=== PATIENT | female | born 1945 | race Caucasian/White ===

== ENCOUNTER 2024-06-03 11:39 | Inpatient (IN) | payer MEDICARE, OTHER, SELFPAY ==
[2024-06-03] VITALS (11 sets, daily range): BP systolic 108–172; BP diastolic 59–76; BMI 27.7
[2024-06-03 10:07] LABS: Glucose - Point of Care 170 mg/dl (70-99)
--- NOTE | 2024-06-03 10:15 | EDRN ---
Late entry documented on behalf of primary RN, Rosalia Hancock, after verbal discussion.
--- NOTE | 2024-06-03 10:28 | ED.GENMED ---
History of Present Illness
General
Chief Complaint: Weakness
Source: patient
Exam Limitations: none
Time Seen by Provider: 06/03/24 10:05
Nursing documentation reviewed up to this point in time: agreed with
History of Present Illness
History of Present Illness:
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
out, witnessed by live-in aide, around 9 AM this morning. Per family at bedside, denies recent illness or recent change in medications or diet. Denies previous history of similar symptoms. At baseline, patient is unable to ambulate, but is able
to move right leg and is able to feed herself with her right arm. Speech has been affected due to stroke, but is able to verbalize patient's family names. Upon arrival, patient is arousable, and appears to be answering simple questions to her son
at bedside.
Past History
Past History
ED Past Medical History: Arrthythmia (atrial fib), CVA (Left sided weakness, Aphasia), HTN, Hypercholesterolemia, NIDDM, Hypothyroidism, Psychiatric (Anxiety, Depression) and Other (Headaches, fainting episodes, UTI, DVT. G-Tube, right upper
extremity embolism requiring urgent embolectomy 02/21.)
ED Past Surgical History: Gynecological (pelvic repair) and Other (craniotomy )
Social History
Tobacco: Non-smoker
Alcohol: None
Personal:
Living: care home (for rehab)
Review of Systems
Review of Systems
Allergies reviewed?: Yes
Unable to obtain full review of systems at this time due to: due to acuity
All Other Systems: Not applicable
Phy Exam
Physical Exam
Physical Exam:
Physical Exam
General: mild distress. afebrile
Head: nc/at.
Neck: supple.
Heart: s1/s2 regular rate and rhythm, no murmur. equal radial pulses.
Lungs: no acute respiratory distress. clear bilaterally
Abdomen: normal bowel sounds. not tender.
Neuro: intermittently opens eyes and noted to move RUE and RLE spontaneously.
Skin: no rash
Extremities: no edema.
Course
Orders/Labs/Results
Orders:
Orders
06/03/24 Lunch
Tube Feeding
Tube Feeding Product: Tube Feeding Per RD
Flush Continuous pump feedings with water (mL/hr): 50
06/03/24 10:20
CT HEAD STROKE ALERT W/o Cont Urgent
Comment:
Reason For Exam: mental status change with speech impairment
06/03/24 10:21
Electrocardiogram (*1) Urgent
Reason for Study: TIA/Stroke
EKG- Treatment ONCE
06/03/24 10:26
EEG Routine Urgent
Reason for Exam: minimally responsive, hx large CVA
06/03/24 10:34
Levetiracetam Injectable [Keppra] 1,000 mg IV NOW STA
06/03/24 10:36
Levetiracetam Injectable [Keppra] 1,500 mg IV NOW STA
06/03/24 10:50
NEUROLOGY CONSULT Routine
Consulting Provider: Kaveh Jenkins
Was physician already notified: Yes
06/03/24 10:53
C-Reactive Protein Urgent
Complete Blood Count/With Diff Urgent
Comprehensive Metabolic Panel Urgent
Magnesium Urgent
06/03/24 11:27
Admit/Transfer Patient As Directed
Co-Sign Provider:
Level of Care: Inpatient admission
Assign to:: Telemetry
Physician / Group: Abby/hospitalist
Diagnosis: AMS
Reason for Telemetry: Arrhythmia
Date to Stop Telemetry: 06/06/24
Time to Stop Telemetry: 11:00
Reason for Hospitalization: AMS
Expected length of stay greater than two midnights?: Yes
ELOS- Estimated Length of Stay in days: 5
I certify the patient meets the requirements for IP care: Yes
MR Brain Without Contrast Routine
Comment:
Reason For Exam: decreased consciousness
Recent pill cam endoscopy?: No
PRN Pain Medication Management As Directed
May give lesser potent ordered pain med per pt: Yes
preference::
Protocol:: Medication orders for pain may be administered in a
manner that supports deferring to patient preference
when the pt is:
- Requesting an ordered lesser potent pain medication.
Least to most potent pain medications are defined
as: acetaminophen < NSAID < tramadol < opioids
(morphine, oxycodone, hydromorphone).
- Requesting a lesser dose of the same medication IF
ORDERED.
- Requesting a less intrusive route of administration
if both routes are prescribed by the provider (PO <
IV).
06/03/24 11:29
Code Status As Directed
Resuscitation Status: Full Code
06/03/24 12:24
Urinalysis Reflex To Culture Urgent
Date Specimen was Collected: 06/03/24
Time Specimen was Collected: 12:23
Urine Drug Abuse Screen Routine
Date Specimen was Collected: 06/03/24
Time Specimen was Collected: 12:23
06/03/24 13:40
Bisacodyl [Dulcolax] 10 mg RECTAL [id number] PRN
Dextrose 50%-Water [Dextrose 50% Syringe] 12.5 grams IV [id number] PRN
Docusate W/Senna [Senokot-S] 1 tablet PO BIDPRN PRN
Glucagon [GlucaGen] 1 mg IM PRN PRN
Insulin Aspart Corrective Mod [Novolog Flexpen-Moderate Resistance] See Protocol SC AC
Polyethylene Glycol Powder [Miralax] 17 grams PO DAILYPRN PRN
06/03/24 13:40
WOUND/OSTOMY CONSULT Routine
Reason for Consult: R leg, sacral wound
Activity As Directed
Activity Level: As Tolerated
Bedside Glucose Monitoring As Directed
Frequency: AC&HS
Additional Instructions:: Change to q6h if pt on TPN, tube feeding or not eating
Vital Signs As Directed
Frequency: Per unit guidelines
06/03/24 14:00
CefTRIAXone [Rocephin] 1,000 mg IV Q24H
06/03/24 Dinner
NPO
Allow oral meds: No
Allow clear liquids: Sips of Clears
06/03/24 20:00
Amantadine [Symmetrel Syrup] 150 mg TUBE BID
Apixaban [Eliquis] 5 mg TUBE Q12
Doxycycline [Vibramycin] 100 mg TUBE BID
Sotalol [Betapace] 80 mg TUBE BID
06/03/24 22:00
Acetaminophen [Tylenol] 650 mg TUBE HS
Atorvastatin [Lipitor] 80 mg TUBE HS
06/04/24 06:00
Basic Metabolic Panel IN AM
Complete Blood Count/With Diff IN AM
Glycohemoglobin (HgbA1c) IN AM
Magnesium IN AM
Levothyroxine [Synthroid] 100 mcg TUBE DAILY@0600
06/04/24 08:00
Lansoprazole [Prevacid] 15 mg TUBE DAILY
Losartan [Cozaar] 25 mg TUBE DAILY
06/04/24 12:00
Digoxin [Lanoxin] 125 mcg TUBE NOON
06/05/24 06:00
Basic Metabolic Panel IN AM
Complete Blood Count/With Diff IN AM
06/06/24 06:00
Basic Metabolic Panel IN AM
Complete Blood Count/With Diff IN AM
06/06/24 11:00
DC Protocol for Telemetry ONCE
06/07/24 06:00
Basic Metabolic Panel IN AM
Complete Blood Count/With Diff IN AM
Abnormal Lab Results
06/03/24 06/03/24
10:05 10:53
RBC 4.07 L 10^6/uL
(4.20-5.40)
Hct 36.1 L %
(37.0-47.0)
RDW 14.9 H %
(11.5-14.5)
Abs Immat Gran (auto) 0.1 H 10^3/uL
(0-0.05)
Immature Gran % 0.7 H %
(0-0.5)
Sodium 134 L mmol/L
(135-145)
Chloride 96 L mmol/L
(98-107)
BUN 31 H mg/dl
(7-17)
Creatinine 0.5 L mg/dL
(0.6-1.0)
Glucose 158 H mg/dl
(70-99)
Magnesium 1.3 L mg/dl
(1.6-2.3)
AST 42 H U/L
(14-36)
ALT 42 H U/L
(0-35)
Alkaline Phosphatase 141 H U/L
(38-126)
C-Reactive Protein 18.80 H mg/L
(0.0-10.00)
Albumin 3.3 L g/dl
(3.5-5.0)
POC Glucose 170 H mg/dl
(70-99)
06/03/24 10:53
06/03/24 10:53
Vital Signs
Initial and Last Documented VS:
Initial Vital Signs
BP
157/69
06/03/24 10:02
Last Documented Vital Signs
Temp Pulse Resp BP Pulse Ox
92.0 F L 47 18 144/67 92
06/03/24 13:55 06/03/24 13:55 06/03/24 13:55 06/03/24 13:55 06/03/24 14:31
MDM/Problems Addressed
MDM/Problems Addressed:
Stroke alert activated upon initial evaluation.
CT head: increased encephalomalacia noted, without any evidence of bleeding.
Patient evaluated at bedside by Dr. Jenkins, neurology. Recommends starting patient on Keppra, with initial load of 1500 mg.
Patient will be admitted for further evaluation and treatment.
Eliquis taken this morning, which will be continued.
Critical care statement: A total of 40 minutes of critical care time was provided for this patient. This includes management of unstable vital signs, evaluation of the patient at bedside, reviewing the patient's pertinent medical records, discussion
with consultants, review of old EKGs and review of pertinent medical records. This time with separate from time utilized to perform the aforementioned documented procedures
*EKG
Interpreted by ED Provider?: Yes
EKG Intrepretation Date: 06/03/24
Heart Rate: 56
Rate: bradycardiac
Rhythm: sinus
[place]: normal axis
Interval: normal interval
*Critical Care Note
Total Time (30-74mins, 75-104mins- exclusive of procedures): Not Applicable
ED Attending Note
-
Portions of this chart may have been created with voice recognition software.� Occasional wrong word or��sound alike� substitutions may have occurred due to the inherent limitations of voice recognition software.
Discharge Plan
Departure
Patient Disposition: Admit
Date of Disposition: 06/03/24
Time of Disposition: 10:43
Presentation/result/management discussed w/ accepting MD/DO: Hospitalist
Discharge Problem:
Seizure, Altered mental status
Interventions
Interventions:
*Risk Screen - Suicide Last Done: 06/03/24 10:04
*General Assessment Last Done: 06/03/24 10:04
*Neglect/Abuse Screening Last Done: 06/03/24 10:04
ED- Fall Risk Assessment Last Done: 06/03/24 13:17
*ED COVID-19 Vaccine History Last Done: 06/03/24 10:04
*Nursing Disposition Last Done: 06/03/24 13:17
ED- Cardiac Assessment Last Done: 06/03/24 10:00
ED- Neurological Assessment Last Done: 06/03/24 10:00
ED- Pulmonary Assessment Last Done: 06/03/24 10:00
--- NOTE | 2024-06-03 10:29 | CON.NEURO4 ---
Documented by User: Jocelyn Finley NP 06/03/24 13:36
Consultation - Neurology 4
-
CONSULTING PHYSICIAN: Kaveh Jenkins MD
REFERRING PHYSICIAN: ER/Dr. Shaw
DICTATED BY: OBDULIO Hill
DATE/TIME OF REQUEST: 06/03/24
DATE/TIME OF CONSULTATION: 06/03/24
Reason for Consultation: Stroke Alert
History of Present Illness:
This is a 79-year-old female with an extensive neurological history consisting of a R ICA occlusion in 12/2022 resulting in a large R MCA ischemic stroke s/p IV tPA and IAT complicated by RUE embolus s/p urgent embolectomy. She then was transferred
to [place] due to cerebral edema and underwent R chad craniectomy by Dr. Galeana. Patient's son notes that she had another stroke while at [place] but I cannot find further information about this. She underwent uncomplicated flap replacement in
January 2024. Her family at bedside report that at baseline she has residual left hemiparesis, has a PEG tube for adequate nutrition but is able to swallow some soft things, she is minimally verbal but can say some names/interact somewhat, she is able
to use her RLE and RUE somewhat but requires 24 hour nursing care. She has been on Eliquis 5mg BID since her stroke in 2022 and has not missed any doses. Her family denies any previous concern of seizures.
This morning (06/03/24), patient's family notes that her back shoe worker was with her and she was in her usual state, when around 0900 she had sudden onset of being 'unresponsive,' foaming at the mouth, tongue was protruding and was blue in color, and she
was making guttural noises. On EMS arrival, patient seemed to relax from that state but has continued to be minimally responsive, prompting a stroke alert to be activated. CT head was obtained on arrival and is negative for any acute findings.
Patient is not a candidate for TNK/IAT due to Eliquis dosage this morning, MRS score 5, and symptoms more supportive of seizure. She is nonverbal/not following commands at present. Will open her eyes to loud voice but closes them after stimulation.
Her family reports that last week she was diagnosed with herpes zoster on her R thigh and has been receiving Valtrex. She is also taking Doxycycline for a sacral pressure ulcer.
Past Medical History: R ICA occlusion resulting in large R MCA ischemic stroke 01/29/2023 s/p hemicraniectomy, RUE embolism, Afib (Eliquis), HTN, HLD, NIDDM, hypothyroidism, osteoporosis, anxiety, depression, DVT
Surgical History: R ICA thrombectomy, R arm embolectomy, R hemicraniectomy s/p flap replacement, PEG tube, pelvic repair, appendicitis surgery with mesh
Family History: Reviewed and noncontributory.
Social History: Denies tobacco, alcohol, and illicit drug use.
Allergies: No known allergies.
Home Medications: See below.
Review of Symptoms:
Per the HPI. I am unable to obtain a complete review of systems�because of patient's inability to provide history.
Physical Exam:
The patient is afebrile, abdomen is nondistended, breathing is unlabored, skin is warm and dry, trace BLE edema.
NIH Stroke Scale:
I performed the NIH stroke scale on the patient on 06/03/24 at 1000. The patient scored 22 points on the NIH stroke scale assessment, which were assigned as follows:
Neurologic Examination:
The patient is lethargic, opens eyes briefly to loud voice. She does not follow any commands. No verbal response.. On cranial nerve assessment, pupils are 3 mm bilateral, round and reactive to light and accommodation. LAMAR visual dawson or EOMS, no
apparent gaze deviation. There is no facial asymmetry. LAMAR tongue/uvula. Motor strengths are 0/5 left upper and lower extremities, 1/5 RUE and RLE on medical research Grayling scale. LAMAR drift. No involuntary movement noted. Deep tendon reflexes are
1+ bilateral upper and lower extremities. Babinski is positive on the left. LAMAR sensation, double simultaneous, and coordination.
Lab Results: See below.
Neuro Imaging:
1. CT Head 06/03/24: No acute intracranial hemorrhage. Postoperative changes of right-sided cranioplasty with encephalomalacia throughout the right cerebral hemisphere with associated ex vacuo dilation of the right lateral ventricle, similar to
prior. There is encephalomalacia involving the anterior right frontal lobe which is similar to prior. However there is increased encephalomalacia involving the left paramedian frontal and parietal lobes, likely either evolving postoperative change
or prior infarct. MRI may be considered for further evaluation if there is concern for acute ischemia.
Differentials for the patient's presentation include:
1. Seizure/postictal state likely producing change in mental status. Given significant size of old stroke, this greatly increases the patient's risk for seizures.
2. Low concern for new ischemic stroke but cannot entirely exclude this.
3. CT head negative for hemorrhage.
4. Herpes zoster.
Patient has the following risk factors for their symptoms: Large old infarct, herpes zoster
IV Tenecteplase/IAT candidacy: Patient is not a candidate for TNK/IAT due to Eliquis dosage this morning, MRS score 5, and symptoms more supportive of seizure.
Recommendations:
-Provide Keppra 1000mg IV x1 now. Recommend continuing Keppra 1000mg IV q12hrs.
-Patient's son reluctant to add Keppra to medications, requested we notify Dr. Galeana at [place] of current situation. Notified Dr. Galeana's office, he confirms that it is completely okay for her to be on Keppra.
-Urgent EEG pending.
-Okay to continue home Eliquis 5mg BID.
-Goal normotension.
-MRI brain noncontrast per Hospitalists team.
-Infection/metabolic workup per primary team.
-NIHSS and neurological checks per unit guidelines.
-Provide patient's family with a stroke education packet.
-DVT prophylaxis with anticoagulation.
Discussed patient care with: Dr. Jenkins, Dr. Shaw, Dr. Mora, patient's family
Vital Signs and Labs
-
Vital Signs and Labs:
Vital Signs
Pulse Resp BP Pulse Ox
52 18 135/74 96
06/03/24 13:00 06/03/24 13:00 06/03/24 13:00 06/03/24 13:00
Lab Results
06/03/24 10:53
06/03/24 10:53
Sodium 134 mmol/L (135-145) L 06/03/24 10:53
Potassium 4.8 mmol/L (3.5-5.1) 06/03/24 10:53
BUN 31 mg/dl (7-17) H 06/03/24 10:53
Glucose 158 mg/dl (70-99) H 06/03/24 10:53
Calcium 9.9 mg/dl (8.4-10.2) 06/03/24 10:53
Ur Buprenorphine Negative (Negative) 06/03/24 12:24
Medications
-
Active Medications
Generic Name Dose Route Start Last Admin
Trade Name Freq PRN Reason Stop Dose Admin
Magnesium Sulfate 4 gram in 100 mls @ 25 mls/hr 06/03/24 13:06
Magnesium Sulfate IV 06/03/24 17:05
NOW STA
Home Medications
�Medication �Instructions �Recorded
amantadine HCl 50 mg/5 mL oral 150 mg (15 mL) feeding tube BID 06/25/23
solution #1,800 mL
apixaban 5 mg tablet (Eliquis) 5 mg feeding tube Q12 #60 tabs 06/25/23
digoxin 125 mcg (0.125 mg) tablet 125 mcg feeding tube DAILY #30 tabs 06/25/23
levothyroxine 100 mcg tablet 100 mcg feeding tube DAILY@0600 06/25/23
#30 tabs
acetaminophen 325 mg tablet 650 mg feeding tube HS 06/03/24
atorvastatin 80 mg tablet 80 mg feeding tube HS 06/03/24
doxycycline hyclate 100 mg capsule 100 mg feeding tube BID 06/03/24
lansoprazole 15 mg capsule,delayed 15 mg feeding tube DAILY 06/03/24
release
losartan 25 mg tablet 25 mg feeding tube DAILY 06/03/24
metformin 500 mg tablet 500 mg feeding tube DAILY 06/03/24
mupirocin 2 % topical ointment 1 applic topical DAILY bed sore 06/03/24
sotalol 80 mg tablet 80 mg feeding tube BID 06/03/24
therapeutic multivitamin 1 tab feeding tube DAILY 06/03/24
urea 15 gram oral powder packet 1 packet PO Q48H 06/03/24
(Ure-Na)
NIH Stroke Score
Subsequent NIH Scale
Date of Subsequent NIH Scale: 06/03/24
Time of Subsequent NIH Scale: 10:00
NIH Stroke Score
Level of Consciousness: 1 - Arousable
LOC Questions: 2-Neither correct
LOC Commands: 2-Performs neither correctly
Best Horizontal Gaze: 0-Normal
Visual Dawson: 0=Normal, no visual loss
Facial Palsy: 0=Normal, symmetrical
Motor - Right Arm: 3=None vs. gravity
Motor - Left Arm: 4=No movement
Motor - Right Le-None vs. gravity
Motor - Left Le-No movement
Limb Ataxia: 0-Absent
Sensation: 0-Normal
Best Language: 3-Mute/global aphasia
Dysarthria: 0-Normal
Extinction and Inattention: 0-No abnormality
Total Score:: 22
Modified [place] (mRS) Score
Modified Aster Scale (mRS): Severe disability. Requires constant nursing care.
Score: 5
Alteplase Contraindication
Inclusion and Exclusion criteria reviewed: Yes
Reasons for NON-Tx with Thrombolytics ABSOLUTE Exclusions: Patient taking oral anticoagulant and last dose within 48 hours
IAT Contraindications: Baseline mRS greater than or equal to 3 by history

Documented by User: Kaveh Jenkins MD 06/03/24 15:18
Consultation - Neurology 4
-
CONSULTING PHYSICIAN: Kaveh Jenkins MD
REFERRING PHYSICIAN: ER/Dr. Shaw
DICTATED BY: OBDULIO Hill
DATE/TIME OF REQUEST: 06/03/24
DATE/TIME OF CONSULTATION: 06/03/24
Reason for Consultation: Altered mental status
History of Present Illness:
This is a 79-year-old female with an extensive neurological history consisting of a R ICA occlusion in 12/2022 resulting in a large R MCA ischemic stroke s/p IV tPA and IAT complicated by RUE embolus s/p urgent embolectomy. She then was transferred
to [place] due to cerebral edema and underwent R chad craniectomy by Dr. Galeana. Patient's son notes that she had another stroke while at [place] but I cannot find further information about this. She underwent uncomplicated flap replacement in
January 2024. Her family at bedside report that at baseline she has residual left hemiparesis, has a PEG tube for adequate nutrition but is able to swallow some soft things, she is minimally verbal but can say some names/interact somewhat, she is able
to use her RLE and RUE somewhat but requires 24 hour nursing care. She has been on Eliquis 5mg BID since her stroke in 2022 and has not missed any doses. Her family denies any previous concern of seizures.
This morning (06/03/24), patient's family notes that her back shoe worker was with her and she was in her usual state, when around 0900 she had sudden onset of being 'unresponsive,' foaming at the mouth, tongue was protruding and was blue in color, and she
was making guttural noises. On EMS arrival, patient seemed to relax from that state but has continued to be minimally responsive, prompting a stroke alert to be activated. CT head was obtained on arrival and is negative for any acute findings.
Patient is not a candidate for TNK/IAT due to Eliquis dosage this morning, MRS score 5, and symptoms more supportive of seizure. She is nonverbal/not following commands at present. Will open her eyes to loud voice but closes them after stimulation.
Her family reports that last week she was diagnosed with herpes zoster on her R thigh and has been receiving Valtrex. She is also taking Doxycycline for a sacral pressure ulcer.
Past Medical History: R ICA occlusion resulting in large R MCA ischemic stroke 01/29/2023 s/p hemicraniectomy, RUE embolism, Afib (Eliquis), HTN, HLD, NIDDM, hypothyroidism, osteoporosis, anxiety, depression, DVT
Surgical History: R ICA thrombectomy, R arm embolectomy, R hemicraniectomy s/p flap replacement, PEG tube, pelvic repair, appendicitis surgery with mesh
Family History: Reviewed and noncontributory.
Social History: Denies tobacco, alcohol, and illicit drug use.
Allergies: No known allergies.
Home Medications: See below.
Review of Symptoms:
Per the HPI. I am unable to obtain a complete review of systems�because of patient's inability to provide history.
Physical Exam:
The patient is afebrile, abdomen is nondistended, breathing is unlabored, skin is warm and dry, trace BLE edema.
NIH Stroke Scale:
I performed the NIH stroke scale on the patient on 06/03/24 at 1000. The patient scored 22 points on the NIH stroke scale assessment, which were assigned as follows:
Neurologic Examination:
The patient is lethargic, opens eyes briefly to loud voice. She does not follow any commands. No verbal response.. On cranial nerve assessment, pupils are 3 mm bilateral, round and reactive to light and accommodation. LAMAR visual dawson or EOMS, no
apparent gaze deviation. There is no facial asymmetry. LAMAR tongue/uvula. Motor strengths are 0/5 left upper and lower extremities, 1/5 RUE and RLE on medical research Grayling scale. LAMAR drift. No involuntary movement noted. Deep tendon reflexes are
1+ bilateral upper and lower extremities. Babinski is positive on the left. LAMAR sensation, double simultaneous, and coordination.
Lab Results: See below.
Neuro Imaging:
1. CT Head 06/03/24: No acute intracranial hemorrhage. Postoperative changes of right-sided cranioplasty with encephalomalacia throughout the right cerebral hemisphere with associated ex vacuo dilation of the right lateral ventricle, similar to
prior. There is encephalomalacia involving the anterior right frontal lobe which is similar to prior. However there is increased encephalomalacia involving the left paramedian frontal and parietal lobes, likely either evolving postoperative change
or prior infarct. MRI may be considered for further evaluation if there is concern for acute ischemia.
Differentials for the patient's presentation include:
1. Seizure/postictal state likely producing change in mental status. Given significant size of old stroke, this greatly increases the patient's risk for seizures.
2. Low concern for new ischemic stroke but cannot entirely exclude this.
3. CT head negative for hemorrhage.
4. Herpes zoster.
Patient has the following risk factors for their symptoms: Large old infarct, herpes zoster
IV Tenecteplase/IAT candidacy: Patient is not a candidate for TNK/IAT due to Eliquis dosage this morning, MRS score 5, and symptoms more supportive of seizure.
Recommendations:
-Provide Keppra 1000mg IV x1 now. Recommend continuing Keppra 1000mg IV q12hrs.
-Patient's son reluctant to add Keppra to medications, requested we notify Dr. Galeana at [place] of current situation. Notified Dr. Galeana's office, he confirms that it is completely okay for her to be on Keppra.
-Urgent EEG pending.
-Okay to continue home Eliquis 5mg BID.
-Goal normotension.
-MRI brain noncontrast per Hospitalists team.
-Infection/metabolic workup per primary team.
-NIHSS and neurological checks per unit guidelines.
-Provide patient's family with a stroke education packet.
-DVT prophylaxis with anticoagulation.
Discussed patient care with: Dr. Jenkins, Dr. Shaw, Dr. Mora, patient's family
Neurology attending note
CC: Altered mental status
HPI: 79-year-old female with RIGHT ICA occlusion(12/2022) resulting in a large R MCA ischemic stroke s/p IV tPA and IAT complicated by RUE embolus s/p urgent embolectomy. She then underwent R chad craniectomy at [facility] for malignant
cerebral edema by Dr. Galeana. She suffered another another stroke at [place]. She underwent uncomplicated flap replacement in January 2024. Her family at bedside report that at baseline she has residual left hemiparesis, with a PEG tube for
adequate nutrition but is able to swallow mashed food. she is minimally verbal and say names of her family , she is able to use her RLE and RUE somewhat but requires 24 hour nursing care. She has been on Eliquis 5mg BID since her stroke in 2022 and
has not missed any doses. Her family denies any previous concern of seizures.
This morning (06/03/24), patient's family notes that her back shoe worker was with her and she was in her usual state, when around 0900 she became unresponsive, foaming at the mouth, tongue was protruding turning blue, and was making guttural noises.
On examination: Afebrile P52 RR18 BP135/74 Pulse Ox96
She is postictal arousable oriented to none. Aphasic. Cranial nerve exam: Right gaze preference. Left facial weakness. Left-sided weakness of upper and lower extremities. Left Babinski. Bedbound
Assessment and plan: New onset seizure secondary to right MCA infarction. New onset herpes zoster
Plan: Keppra 1000 mg IV bolus. Keppra 500 mg IV every 12 hourly maintenance
EEG
Eliquis 5 mg twice daily
Serial neuro exams and seizure precautions
Patient to be admitted for observation overnight
NIH Stroke Score
NIH Stroke Score
Total Score:: 22
Modified Aster (mRS) Score
Score: 5
[2024-06-03] MEDS: KEPPRA 1500 MG IV (10:46)
--- NOTE | 2024-06-03 10:49 | HPS.HSE ---
Family Physician
-
Family Physician: NOT KNOW UNKNOWN - PT DOES
Chief Complaint
-
decreased LOC
History of Present Illness
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
in January 2023, Paroxysmal atrial fibrillation on anticoagulation with Eliquis, Essential hypertension, Insulin- dependent diabetes, Hypothyroidism on replacement; p/w sudden onset of 'unresponsiveness' with foaming at mouth and tongue hanging out,
witnessed by live-in aide. Symptoms started in the morning.
Medical History
Past Medical History
Past Medical History: Reports Arrhythmia and Other
Additional Past Medical History:
Past medical history and archive reviewed and obtained from the son and the chart.
History of A-fib anticoagulated with Eliquis
Hemorrhagic stroke status post craniotomy in January of this year and right side of skull left open
Ambulatory dysfunction
Status post PEG tube feeding
History of the right upper extremity DVT requiring thrombectomy
Chronic aphasia and left-sided weakness
Dyslipidemia
Insulin-dependent diabetes mellitus
Hypothyroidism
Anxiety and mood disorder
Past Surgical History: Reports Other
Additional Past Surgical History:
Craniotomy 01/2023
R arm embolus embolectomy
Social History
Unable to obtain full social history at this time due to: Other
Tobacco: Non-smoker
Alcohol: None
Drug: None
Living: Alone (with 24 hour aide)
Family History
Family History: CAD, Hypertension and Other (stroke)
Allergies / Home Medications
Allergies reflects when Allergies were last updated in [facility] [employer].
Home Medications with original date entered in [employer]
Allergy/Medication List:
Allergies
Allergy/AdvReac Type Severity Reaction Status Date / Time
No Known Allergies Allergy Verified 06/14/23 19:31
Home Medications
amantadine HCl 50 mg/5 mL oral solution 150 mg (15 mL) feeding tube BID #1,800 mL 06/25/23
apixaban 5 mg tablet (Eliquis) 5 mg feeding tube Q12 #60 tabs 06/25/23
digoxin 125 mcg (0.125 mg) tablet 125 mcg feeding tube DAILY #30 tabs 06/25/23
levothyroxine 100 mcg tablet 100 mcg feeding tube DAILY@0600 #30 tabs 06/25/23
acetaminophen 325 mg tablet 650 mg feeding tube HS 06/03/24
atorvastatin 80 mg tablet 80 mg feeding tube HS 06/03/24
doxycycline hyclate 100 mg capsule 100 mg feeding tube BID 06/03/24
lansoprazole 15 mg capsule,delayed release 15 mg feeding tube DAILY 06/03/24
losartan 25 mg tablet 25 mg feeding tube DAILY 06/03/24
metformin 500 mg tablet 500 mg feeding tube DAILY 06/03/24
mupirocin 2 % topical ointment 1 applic topical DAILY bed sore 06/03/24
sotalol 80 mg tablet 80 mg feeding tube BID 06/03/24
therapeutic multivitamin 1 tab feeding tube DAILY 06/03/24
urea 15 gram oral powder packet (Ure-Na) 1 packet PO Q48H 06/03/24
Review of Systems
-
Neurological: Reports See HPI and Other (decreased LOC )
Physical Exam
Vital Signs
Vital Signs
Pulse Resp BP Pulse Ox
66 18 157/69 95
06/03/24 10:04 06/03/24 10:04 06/03/24 10:04 06/03/24 10:04
Physical Exam
General: Well Developed, Well Nourished and Appears Chronically Ill; No Conversant
HEENT: NormoCephalic, Moist mucous membranes and Atraumatic
Respiratory: Clear and Non Labored Respirations; No Accessory Resp Muscle Use
Cardiac: S1/S2 and Regular Rhythm; No Murmur or Rub
GI: Soft, Non Tender, Non Distended, Normal Bowel Sounds and Peg Tube
Rectal: Deferred by Provider
Musculoskeletal: No Clubbing, No Cyanosis and No Edema
Skin: No Rash
Neuro: Other (lethargic )
Psych: Calm
Data Reviewed
-
CT Scan: Report Reviewed by me
Lab Data: Labs Reviewed by me
Impression/Plan
-
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
in January 2023, Paroxysmal atrial fibrillation on anticoagulation with Eliquis, Essential hypertension, Insulin- dependent diabetes, Hypothyroidism on replacement; p/w sudden onset of 'unresponsiveness' with foaming at mouth and tongue hanging out,
witnessed by live-in aide. Symptoms started in the morning.
Per family at bedside, pt at baseline is minimally verbal and can interact with people. Probably not orientated due to previous stroke.
Family also informed that pt was recently diagnosed with R leg shingles and completed antiviral.
In the ED, pt is arousable with sternal rub. She cannot provide history.
A/P:
# Acute metabolic encephalopathy, unclear cause currently
CT head No acute intracranial hemorrhage.
[place] due to postictal state per neurology
Status post Keppra per neuro, defer Keppra to Neuro
Check EEG
Check MRI brain
Also check UA/urine culture, CRP for infectious etiology as differential diagnosis
Cover with empiric antibiotic ceftriaxone for now
Cont TF with water flushes
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
# status post lytic treatment followed by craniotomy in January 2023 for stroke
Monitor mental status,
At baseline, pt is minimally verbal and can interact with people.
# Paroxysmal atrial fibrillation
cont SALES AND CUSTOMER RELATIONS REP Eliquis through PEG
Cont SALES AND CUSTOMER RELATIONS REP Digoxin and sotalol through PEG
# Right upper extremity embolism requiring embolectomy in January 2023
cont SALES AND CUSTOMER RELATIONS REP Eliquis through PEG
# Essential hypertension
cont SALES AND CUSTOMER RELATIONS REP Losartan through PEG
# NIDDM
Hold SALES AND CUSTOMER RELATIONS REP metformin
cover with ISS
# Hypothyroidism on replacement
# Sacral decub ulcer POA
wound care CS
cont SALES AND CUSTOMER RELATIONS REP Doxycycline
# Recent R leg shingles
completed antiviral per family
wound care CS
DVT ppx: SALES AND CUSTOMER RELATIONS REP Eliquis
FC, confirmed with son
[2024-06-03 11:06] LABS: % Basophils 0.4 % (0-2); % Eosinophils 1.6 % (0-6); % Immature Granulocytes 0.7 % (0-0.5); % Lymphocytes 26.5 % (20.5-51.1); % Monocytes 6.7 % (1.7-9.3); % Neutrophils 64.1 % (42.2-75.2); Absolute Eosinophils 0.1 10^3/uL (0-0.7); Absolute Immature Granulocytes 0.1 10^3/uL (0-0.05); Absolute Lymphocytes 2.3 10^3/uL (1.2-3.4); Absolute Monocytes 0.6 10^3/uL (0.1-0.6); Absolute Neutrophils 5.5 10^3/uL (1.4-6.5); Hematocrit 36.1 % (37.0-47.0); Mean Corp Hgb Conc. 33.2 g/dL (33.0-37.0); Mean Corpuscular Hgb 29.5 pg (27.0-31.0); Mean Corpuscular Volume 88.7 fL (81.0-99.0); Mean Platelet Volume 10.2 fL (7.4-10.4); Nucleated Red Blood Cells % 0 %; Platelet Count 292 10^3/uL (130-400); Red Blood Cell Count 4.07 10^6/uL (4.20-5.40); Red Cell Dist. Width 14.9 % (11.5-14.5); White Blood Cell Count 8.5 10^3/uL (4.8-10.8)
[2024-06-03 11:21] LABS: ALT (SGPT) 42 U/L (0-35); AST (SGOT) 42 U/L (14-36); Albumin 3.3 g/dl (3.5-5.0); Alkaline Phosphatase 141 U/L (38-126); Blood Urea Nitrogen 31 mg/dl (7-17); Calcium 9.9 mg/dl (8.4-10.2); Carbon Dioxide 28 mmol/L (22-30); Chloride 96 mmol/L (98-107); Estimated Creatinine Clearance 79 ml/min; Glucose 158 mg/dl (70-99); Magnesium 1.3 mg/dl (1.6-2.3); Potassium 4.8 mmol/L (3.5-5.1); Sodium 134 mmol/L (135-145); Total Bilirubin 0.2 mg/dl (0.2-1.3); Total Protein 6.3 g/dl (6.3-8.2); eGFR > 60.00
[2024-06-03 12:38] LABS: Urine Albumin 1+ (Neg - Trace); Urine Bilirubin Negative (Negative); Urine Character Clear (Clear); Urine Color Yellow; Urine Glucose Negative (Negative); Urine Ketone Negative (Negative); Urine Leukocyte 2+ (Negative); Urine Nitrite Negative (Negative); Urine Occult Blood Negative (Negative); Urine Urobilinogen Negative (Neg - 1+)
[2024-06-03 12:48] LABS: Urine Red Blood Cell 0-2 /HPF (0-2); Urine White Cell 16-20 /HPF (0-5)
[2024-06-03 12:49] LABS: Urine Bacteria Moderate (Negative); Urine Hyaline Cast 0-2 /LPF (0-2)
[2024-06-03 12:52] LABS: Amphetamines Negative (Negative); Barbiturates Negative (Negative); Benzodiazepines Negative (Negative); Buprenorphine Negative (Negative); Cocaine Negative (Negative); Marijuana Negative (Negative); Methadone Negative (Negative); Methamphetamines Negative (Negative); Opiates Negative (Negative); Phencyclidine Negative (Negative); Tricyclic Antidepressants Negative (Negative)
--- NOTE | 2024-06-03 13:07 | EEG.RPT ---
Electroencephalogram Report
Recording
Date of EE06/03/24
Type of EEG: Routine
Length of EEG recordin mins
Done with Video Recording: Yes
Patient Status: Inpatient
Recording Conditions: Awake
Hyperventilation Performed: No
Photic Stimulation Performed: Yes
Report
METHODS
A 21 channel digitized electroencephalogram was performed at [facility]. The 10/20 international system of electrode placement was used. In addition to EEG, the patient was monitored for EKG. The duration of the recording was 28 minutes.
BACKGROUND
The background consisted of relative low amplitude activity with no clear posterior dominant rhythm over the entire right hemisphere and 5-6Hz slowing seen over the left hemisphere which was polymorphic and seen throughout the study.
PHOTIC STIMULATION
Photic stimulation using a step-butler increase in photic frequency varying from 1-31 Hertz resulted in no driving responses but no appearance of abnormal activity.
INTERPRETATION AND CLINICAL CORRELATION
The background consisted of relative low amplitude activity with no clear posterior dominant rhythm over the entire right hemisphere, consistent with the patient's history of stroke in his distribution, and theta to delta range slowing seen over the
left hemisphere, consistent with moderate left hemispheric cerebral dysfunction, nonspecific in etiology.
[2024-06-03 14:06] LABS: Glucose - Point of Care 125 mg/dl (70-99)
[2024-06-03 14:23] LABS: % Basophils 0.3 % (0-2); % Immature Granulocytes 0.6 % (0-0.5); % Lymphocytes 26.3 % (20.5-51.1); % Monocytes 5.8 % (1.7-9.3); Absolute Eosinophils 0.1 10^3/uL (0-0.7); Absolute Immature Granulocytes 0.1 10^3/uL (0-0.05); Absolute Lymphocytes 2.8 10^3/uL (1.2-3.4); Absolute Monocytes 0.6 10^3/uL (0.1-0.6); Hematocrit 34.9 % (37.0-47.0); Hemoglobin 11.6 g/dL (12.0-16.0); Mean Corp Hgb Conc. 33.2 g/dL (33.0-37.0); Mean Corpuscular Hgb 29.2 pg (27.0-31.0); Mean Corpuscular Volume 87.9 fL (81.0-99.0); Mean Platelet Volume 9.6 fL (7.4-10.4); Nucleated Red Blood Cells % 0 %; Platelet Count 276 10^3/uL (130-400); Red Blood Cell Count 3.97 10^6/uL (4.20-5.40); Red Cell Dist. Width 15.1 % (11.5-14.5); White Blood Cell Count 10.5 10^3/uL (4.8-10.8)
--- NOTE | 2024-06-03 14:23 | PTCARENOTE ---
pt transferred from ED to . nurse unable to obtain temp ax or oral. rectal temp 92.0. no temp taken in ED per chart. pt with significant neuro hx. pt with PEG site and tube feeds from home. pt bradycardic. rapid response called on pt. to
upgrade to IMU room 3354. pt with significant stage 4 wound. woundcare consulted.
[2024-06-03 14:30] LABS: INR 1.37; PT 16.9 Sec (11.4-14.6)
[2024-06-03 14:39] LABS: Blood Urea Nitrogen 29 mg/dl (7-17); Calcium 9.6 mg/dl (8.4-10.2); Carbon Dioxide 28 mmol/L (22-30); Chloride 97 mmol/L (98-107); Estimated Creatinine Clearance 79 ml/min; Glucose 130 mg/dl (70-99); Lactic Acid 1.6 mmol/L (0.7-2.0); Potassium 4.8 mmol/L (3.5-5.1); Sodium 134 mmol/L (135-145); eGFR > 60.00
[2024-06-03 14:52] LABS: Troponin I < 0.012 ng/ml
[2024-06-03 15:14] LABS: Creatine Phosphokinase 53 U/L (30-135); HDL Cholesterol 42 mg/dl; LDL Cholesterol, Calculated 35 mg/dl; Total Cholesterol 119 mg/dl (50-199); Triglyceride 211 mg/dl (10-149); Very Low Density Lipoprotein 42 mg/dl (0-30)
[2024-06-03] MEDS: ROCEPHIN 1000 MG IV (15:32)
[2024-06-03] MEDS: STERILE WATER FOR INJECTION 10 ML IV (15:32)
[2024-06-03 15:49] LABS: TSH Reflex To Free T4 7.62 uIU/ml (0.47-4.68)
[2024-06-03 15:52] LABS: Ferritin 68.5 ng/ml (11.1-264.0)
[2024-06-03] MEDS: MAGNESIUM SULFATE 100 IV (16:04)
[2024-06-03 16:17] LABS: Free T4 1.85 ng/dl (0.78-2.19)
[2024-06-03 16:24] LABS: Folate 8.8 ng/ml (2.76-20); Vitamin B12 > 1000 pg/ml (239-931)
--- NOTE | 2024-06-03 16:30 | WOUNDNOTE ---
[facility] RN note: Patient admitted with chronic sacral wound with osteomyelitis x 2 years
See H&P for complete history.
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
2022, Paroxysmal atrial fibrillation on anticoagulation with Eliquis, Essential hypertension, Insulin- dependent diabetes, Hypothyroidism on replacement; p/w sudden onset of 'unresponsiveness' with foaming at mouth and tongue hanging out, witnessed
by live-in aide. Symptoms started in the morning.
Wound Location and type/assessment: Patient admitted with 2 year old sacral wound with osteomyelitis. The wound, which was just changed this morning per family report, was completely saturated. No odor noted, pink wound bed with scant areas of stapletno
slough. 1 cm undermining around circumference of wound with macerated rolled edges. Family reports that current wound care has been ordered by home care agency. Patient has had consult for flap repair, but per son is not a candidate due to osteo and
other comorbidities. Family at bedside insisting on current wound care of cleaning with Dakins and and packing with silver alginate and covering with hydrocolloid dressing. This telegraphic typewriter operator explained to family that wound was saturated and edges were
macerated due to moisture. This telegraphic typewriter operator recommended packing with Dakins moistened packing BID as this will keep wound clean and help to absorb drainage. Family continued to refuse change in packing, but did agree that wound could be covered with
silicone border foam instead of a hydrocolloid and that no-sting barrier could be placed around wound. Heels intact. Patient has caregiving at home and an air mattress.
Appetite: NPO currently, has PEG tube feeds at home
Pressure redistribution devices in place: Centrella Max Air
Plan: Clean with Dakins, sure-prep around wound, pack with silver alginate and cover with sacral foam BID. Will continue to assess if this wound care is adequate to absorb drainage. Patient has several comorbidities including CVA, bedbound status,
diabetes and recent onset of unresponsiveness. Feedings are also currently on hold. Wounds may worsen and new wounds may develop even with optimal care. Will confirm orders with hospitalist and update nurse.
Updated care plan and will follow as needed.
Note to case management of equipment requested for discharge:
Recommend follow up at wound care center upon discharge.
--- NOTE | 2024-06-03 17:11 | PTCARENOTE ---
Received pt from 2N after RR. Pt non-verbal at baseline. Core temp 91.7 upon arrival with HR in 40's. Pt with multiple wounds, WOC consulted and saw pt. Lima hugger in place set at medium. Incontinence care completed as needed, purewick in place.
Family at bedside and updated frequently. CXR results still pending at this time. Family brought in home TF for when TF is resumed. Will continue to monitor through shift.
[2024-06-03 18:26] LABS: Glucose - Point of Care 140 mg/dl (70-99)
[2024-06-03] MEDS: ELIQUIS 5 MG TUBE (22:08)
[2024-06-03] MEDS: BETAPACE 80 MG TUBE (22:09)
[2024-06-03] MEDS: VIBRAMYCIN 100 MG TUBE (22:10)
[2024-06-03] MEDS: SYMMETREL SYRUP 150 MG TUBE (22:10)
--- NOTE | 2024-06-03 23:05 | PTCARENOTE ---
Pt received from previous RN. Mahesh trevino in use. goal temp 97F. pt currently 95.2. rectal probe in use and q1hr temp assessments maintained. Meds admin via peg tube. no acute changes at this time. VSS.
[2024-06-04] VITALS (12 sets, daily range): BP systolic 93–131; BP diastolic 50–68; BMI 26.8
[2024-06-04] MEDS: TYLENOL 650 MG TUBE ×2 (01:05→21:04)
[2024-06-04] MEDS: LIPITOR 80 MG TUBE ×2 (01:06→21:04)
[2024-06-04 01:29] LABS: Glucose - Point of Care 97 mg/dl (70-99)
[2024-06-04] MEDS: DAKIN'S SOLUTION 0.125% 1/4 STRENGTH 1 ML TOPICAL ×3 (04:49→21:05)
[2024-06-04] MEDS: SYNTHROID 100 MCG TUBE (04:53)
[2024-06-04 04:57] LABS: % Basophils 0.3 % (0-2); % Eosinophils 0.9 % (0-6); % Immature Granulocytes 0.4 % (0-0.5); % Monocytes 8.4 % (1.7-9.3); Absolute Eosinophils 0.1 10^3/uL (0-0.7); Absolute Lymphocytes 1.8 10^3/uL (1.2-3.4); Absolute Monocytes 0.8 10^3/uL (0.1-0.6); Absolute Neutrophils 6.9 10^3/uL (1.4-6.5); Hematocrit 33.8 % (37.0-47.0); Hemoglobin 11.4 g/dL (12.0-16.0); Mean Corp Hgb Conc. 33.7 g/dL (33.0-37.0); Mean Corpuscular Hgb 30.4 pg (27.0-31.0); Mean Corpuscular Volume 90.1 fL (81.0-99.0); Mean Platelet Volume 9.7 fL (7.4-10.4); Nucleated Red Blood Cells % 0.2 %; Platelet Count 262 10^3/uL (130-400); Red Blood Cell Count 3.75 10^6/uL (4.20-5.40); Red Cell Dist. Width 14.8 % (11.5-14.5); White Blood Cell Count 9.7 10^3/uL (4.8-10.8)
[2024-06-04 05:23] LABS: Blood Urea Nitrogen 24 mg/dl (7-17); Calcium 9.6 mg/dl (8.4-10.2); Carbon Dioxide 26 mmol/L (22-30); Chloride 98 mmol/L (98-107); Estimated Creatinine Clearance 79 ml/min; Glucose 110 mg/dl (70-99); Magnesium 2.2 mg/dl (1.6-2.3); Sodium 135 mmol/L (135-145); eGFR > 60.00
[2024-06-04 06:49] LABS: Glucose - Point of Care 121 mg/dl (70-99)
--- NOTE | 2024-06-04 08:32 | W.PN.HOSP.TC ---
Today's Communication/Plan
-
see A/P
Assessment / Plan
Assessment / Plan
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
in January 2023, Paroxysmal atrial fibrillation on anticoagulation with Eliquis, Essential hypertension, Insulin- dependent diabetes, Hypothyroidism on replacement; p/w sudden onset of 'unresponsiveness' with foaming at mouth and tongue hanging out,
witnessed by live-in aide. Symptoms started in the morning.
Per family at bedside, pt at baseline is minimally verbal and can interact with people. Probably not orientated due to previous stroke.
Family also informed that pt was recently diagnosed with R leg shingles and completed antiviral.
In the ED, pt is arousable with sternal rub. She cannot provide history.
A/P:
# Acute metabolic encephalopathy, unclear cause currently
CT head No acute intracranial hemorrhage.
[place] due to postictal state per neurology
Status post Keppra per neuro, defer further Keppra to Neuro
EEG noted low amplitude activity, without evidence of seizure
Check MRI brain
Follow urine culture,
CRP noted at 18
Covered with empiric antibiotic ceftriaxone for now
Cont TF with water flushes
# hypothermia
TSH 7.62, FT4 at 1.85, cont Synthroid, can adjust dose from 100 to 125 mcg
follow cortisol level
Follow urine culture, cont empiric antibiotic ceftriaxone for now
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
# status post lytic treatment followed by craniotomy in January 2023 for stroke
Monitor mental status,
At baseline, pt is minimally verbal but can interact with people.
# Paroxysmal atrial fibrillation
cont PACK MULE WORKER Eliquis through PEG
Cont PACK MULE WORKER Digoxin and sotalol through PEG
# Right upper extremity embolism requiring embolectomy in January 2023
cont PACK MULE WORKER Eliquis through PEG
# Essential hypertension
cont PACK MULE WORKER Losartan through PEG
# NIDDM
Hold PACK MULE WORKER metformin
cover with ISS
# Hypothyroidism on replacement
# Sacral decub ulcer POA
wound care CS
cont PACK MULE WORKER Doxycycline
# Recent R leg shingles
completed antiviral per family
wound care CS
DVT ppx: PACK MULE WORKER Eliquis
FC, confirmed with son
DW RN
updated son on the phone. Extensive discussion. Answered all questions. Total time spent 55 min
Anticipated Discharge: > 48 hours
Subjective/Interval History
-
Date of Service: June 04, 2024
Objective Data
-
Labs:
Laboratory Results
06/04/24
04:48
WBC 9.7
Hgb 11.4 L
Hct 33.8 L
Plt Count 262
Sodium 135
Potassium 5.0
Chloride 98
Carbon Dioxide 26
BUN 24 H
Creatinine 0.5 L
Glucose 110 H
Calcium 9.6
Vital Signs:
Vital Signs
Temp Pulse Resp BP Pulse Ox
35.7 C L 66 19 103/58 94
06/04/24 07:24 06/04/24 06:30 06/04/24 06:30 06/04/24 06:00 06/04/24 06:30
I&O
06/03/24 06/04/24 06/05/24
06:59 06:59 06:59
Output Total 300 / 300
Balance -300 / -300
Review of Systems
-
Unable to obtain full review of systems at this time due to: Dementia and Acuity
Physical Exam
-
General: Well Developed, No Apparent Distress, Comfortable and Appears Chronically Ill
HEENT: Normocephalic, Atraumatic and Moist Mucous Membranes
Respiratory: Clear to Auscultation and Non Labored Respirations; Negative Accessory Resp Muscle Use
Cardiac: Regular Rhythm and S1/S2; Negative Murmur, Rub or Gallop
GI: Soft, Nontender, Nondistended, Normal Bowel Sounds and Peg Tube
Rectal: Deferred by Provider
Musculoskeletal: No Clubbing, No Cyanosis and No Edema
Skin: Negative Rash
Neuro: Awake and Other (Noncommunicative)
Psych: Calm and Apparent Dementia; Negative Intact Judgement/Insight
Data Reviewed
-
Diagnostic Radiology: Image personally visualized and interpreted
CT Scan: Report Reviewed by me
Labs: Labs Reviewed by me
[2024-06-04 08:57] LABS: Glycohemoglobin (HgbA1c) 6.9 % (4.0-5.6)
[2024-06-04] MEDS: SYMMETREL SYRUP 150 MG TUBE ×2 (09:27→21:05)
[2024-06-04] MEDS: VIBRAMYCIN 100 MG TUBE ×2 (09:27→21:05)
[2024-06-04] MEDS: COZAAR TUBE (09:28)
[2024-06-04] MEDS: PREVACID 15 MG TUBE (09:28)
[2024-06-04] MEDS: ELIQUIS 5 MG TUBE ×2 (09:28→21:04)
[2024-06-04] MEDS: BETAPACE TUBE (09:29)
--- NOTE | 2024-06-04 10:33 | PTCARENOTE ---
Rishabh and Kandace held per parameters this am.
[2024-06-04 12:05] LABS: Glucose - Point of Care 126 mg/dl (70-99)
--- NOTE | 2024-06-04 12:48 | W.PN.NEURO.1 ---
Today's Communication / Plan
-
Continue IV Keppra 1000 mg every 12 hourly
Continue fluid and nutritional support
Consider hospice
Neuro Assessment/Plan
Assessment
Unfortunate elderly lady with large MCA infarction and subsequent encephalomalacia of the right cortex with dense left hemiplegia who suffered a seizure and is currently stuporous with quadriparesis
Plan
1. IV Keppra 1000 mg every 12 hourly
2. ICU monitoring
3. Eliquis 5 mg via feeding tube
4. GI prophylaxis
5. Blood pressure management
6. Blood sugar control
Overall prognosis poor and consider hospice
Subjective/Objective
Subjective Data
Date of Service: June 04, 2024
Patient remains stuporous can be aroused with loud verbal stimuli. does not follow command
Objective Data
Vital Signs
Temp Pulse Resp BP Pulse Ox
36.1 C L 64 18 97/61 97
06/04/24 11:44 06/04/24 10:00 06/04/24 10:00 06/04/24 10:00 06/04/24 10:00
Lab Results
06/04/24 04:48
06/04/24 04:48
PT 16.9 Sec (11.4-14.6) H 06/03/24 14:09
INR 1.37 06/03/24 14:09
APTT 39.0 Sec (23.4-35.0) H 06/03/24 14:09
Sodium 135 mmol/L (135-145) 06/04/24 04:48
Potassium 5.0 mmol/L (3.5-5.1) 06/04/24 04:48
BUN 24 mg/dl (7-17) H 06/04/24 04:48
Glucose 110 mg/dl (70-99) H 06/04/24 04:48
Calcium 9.6 mg/dl (8.4-10.2) 06/04/24 04:48
LDL Cholesterol, Calc 35 mg/dl 06/03/24 10:53
Vitamin B12 > 1000 pg/ml (239-931) H 06/03/24 10:53
Ur Buprenorphine Negative (Negative) 06/03/24 12:24
Patient Allergies
No Known Allergies Allergy (Verified 06/14/23 19:31)
Physical Exam
-
General: Well Developed, Well Nourished, Appears Chronically Ill and Obese
Eyes: Able to visualize OU, Unremarkable, Round OU and PERRLA
HEENT: Normocephalic
Neck: Full Range of Motion
Extremities: No Clubbing, No Cyanosis and Edema +1
Psych: Unable to Assess
Extended Neurological Exam
Mood & Affect: Unable to Assess
Attention Span & Concentration: Closes Eyes after Stimulation, Unable to Perform 2 Step Request and Other (Stuporous)
Memory: Unable to Assess
Tremor: Hand Tremor Absent and Head Tremor Absent
Involuntary Movement: None
Speech: Expressive Aphasia and Receptive Aphasia
Cranial Nerve II: Left Eye: Pupillary Reactivity Unremarkable, Pupillary Size Unremarkable and Visual [place] Grossly Intact
Cranial Nerve II: Right Eye: Pupillary Reactivity Unremarkable, Pupillary Size Unremarkable and Visual [place] Grossly Intact
Cranial Nerves III, IV, : Extraocular Movement: Extraocular Movement Full in all Directions
Cranial Nerve V: Facial Sensation: Unable to Assess
Cranial Nerve VII: Facial Symmetry: Reduced
Cranial Nerve VIII: Hearing: Unable to Assess
Cranial Nerves IX, X: Palate Movement: Unable to Assess
Cranial Nerve XI: Shoulder Shrug: Unable to Assess
Cranial Nerve XII: Tongue Protusion: Unable to Assess
Muscle Strength, Overall: Reduced Throughout
Muscle Bulk & Tone: Decreased Bulk and Increased Tone
Pronator Drift: Unable to Assess
Deep Tendon Reflexes: Trace Throughout
Cold Sensation: Unable to Assess
Vibration Sensation: Unable to Assess
Touch Sensation: Unable to Assess
Coordination: Unable to Assess
Babinski Sign: Present on Left
Gait & Station: Unable to Assess
Modified Aster Score (MRS)
-
Modified Aster Scale (mRS): Severe disability. Requires constant nursing care.
Score: 5
[2024-06-04] MEDS: STERILE WATER FOR INJECTION 10 ML IV (13:03)
[2024-06-04] MEDS: ROCEPHIN 1000 MG IV (13:04)
[2024-06-04] MEDS: NOVOLOG FLEXPEN-MODERATE RESISTANCE SC (13:04)
[2024-06-04] MEDS: LANOXIN 125 MCG TUBE (13:21)
[2024-06-04] MEDS: NSS (PRESERVATIVE FREE) 1 ML IV (14:32)
[2024-06-04] MEDS: CORTROSYN 0.25 MG IV (14:32)
[2024-06-04 15:11] LABS: ACTH Stim Cortisol 0 Min 14.5 ug/dl
[2024-06-04 16:58] LABS: ACTH Stim Cortisol 60 Min 38.2 ug/dl
[2024-06-04 17:05] LABS: ACTH Stim Cortisol 30 Min 33.9 ug/dl
[2024-06-04 18:07] LABS: Glucose - Point of Care 174 mg/dl (70-99)
[2024-06-04] MEDS: NOVOLOG FLEXPEN-MODERATE RESISTANCE 1 UNITS SC (19:19)
[2024-06-04] MEDS: BETAPACE 80 MG TUBE (21:04)
[2024-06-05] VITALS (12 sets, daily range): BP systolic 104–144; BP diastolic 47–78
[2024-06-05 00:24] LABS: Glucose - Point of Care 151 mg/dl (70-99)
[2024-06-05] MEDS: NOVOLOG FLEXPEN-MODERATE RESISTANCE 1 UNITS SC ×5 (00:39→23:42)
--- NOTE | 2024-06-05 03:37 | PTCARENOTE ---
Pt received at beginning of shift resting in bed. AAOx0. Eyes open, no tracking. Rectal temp 96.0. Lima hugger placed goal 97. Rest of VSS. SR/SB on CM. Pt does move right hand/arm at times. No movement to rest of extremities. Peg tube at 40ml/hr
with 25ml/hr water flushes. Tube feed currently at goal 65ml/hr. Peg tube patent without residual. Peg tube appears collapsed but flushes easily without issue. HOB at 30 degrees. LS course anteriorly and diminished posteriorly. Pt has occasional
weak moist psych np cough. Oral care provided. Purewick changed out and pericare completed. Pt had 2 small loose brown bm's. Cleansed and changed as needed. Sacral wound care completed and documented. Lima hugger off currently goal reached goal at 0200
97.4. Pt went down for scheduled MRI Brain overnight without issue. Rest of assessment as documented. Son called earlier in shift and updated on pt's status. Maintained on Q2hr turns. Will continue to monitor.
[2024-06-05 04:54] LABS: % Basophils 0.2 % (0-2); % Eosinophils 0.9 % (0-6); % Immature Granulocytes 0.5 % (0-0.5); % Lymphocytes 27.4 % (20.5-51.1); Absolute Eosinophils 0.1 10^3/uL (0-0.7); Absolute Lymphocytes 2.4 10^3/uL (1.2-3.4); Absolute Monocytes 0.7 10^3/uL (0.1-0.6); Absolute Neutrophils 5.6 10^3/uL (1.4-6.5); Hematocrit 31.9 % (37.0-47.0); Hemoglobin 10.7 g/dL (12.0-16.0); Mean Corp Hgb Conc. 33.5 g/dL (33.0-37.0); Mean Corpuscular Hgb 30.2 pg (27.0-31.0); Mean Corpuscular Volume 90.1 fL (81.0-99.0); Mean Platelet Volume 10.2 fL (7.4-10.4); Nucleated Red Blood Cells % 0.2 %; Platelet Count 246 10^3/uL (130-400); Red Blood Cell Count 3.54 10^6/uL (4.20-5.40); Red Cell Dist. Width 15.2 % (11.5-14.5); White Blood Cell Count 8.9 10^3/uL (4.8-10.8)
[2024-06-05 05:19] LABS: ALT (SGPT) 38 U/L (0-35); AST (SGOT) 40 U/L (14-36); Alkaline Phosphatase 134 U/L (38-126); Blood Urea Nitrogen 32 mg/dl (7-17); Calcium 9.4 mg/dl (8.4-10.2); Carbon Dioxide 25 mmol/L (22-30); Chloride 98 mmol/L (98-107); Direct Bilirubin 0.3 mg/dl (0.0-0.4); Estimated Creatinine Clearance 79 ml/min; Glucose 160 mg/dl (70-99); Potassium 4.9 mmol/L (3.5-5.1); Sodium 133 mmol/L (135-145); Total Bilirubin 0.3 mg/dl (0.2-1.3); Total Protein 5.7 g/dl (6.3-8.2); eGFR > 60.00
[2024-06-05] MEDS: SYNTHROID 125 MCG TUBE (05:20)
[2024-06-05 05:21] LABS: Glucose - Point of Care 154 mg/dl (70-99)
--- NOTE | 2024-06-05 07:34 | W.PN.HOSP.TC ---
Today's Communication/Plan
-
see A/P
Assessment / Plan
Assessment / Plan
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
in January 2023, Paroxysmal atrial fibrillation on anticoagulation with Eliquis, Essential hypertension, Insulin- dependent diabetes, Hypothyroidism on replacement; p/w sudden onset of 'unresponsiveness' with foaming at mouth and tongue hanging out,
witnessed by live-in aide. Symptoms started in the morning.
Per family at bedside, pt at baseline is minimally verbal and can interact with people. Probably not orientated due to previous stroke.
Family also informed that pt was recently diagnosed with R leg shingles and completed antiviral.
In the ED, pt is arousable with sternal rub. She cannot provide history.
A/P:
# Acute metabolic encephalopathy, unclear cause, seizure vs UTI
CT head No acute intracranial hemorrhage.
[place] due to postictal state per neurology
EEG noted low amplitude activity, without evidence of seizure
Although Neuro recc Keppra 1000 mg every 12 hourly, family is not convinced that pt has a true seizure (hypothermia POA, infection and possible new stroke could cause decreased LOC), hence family would like to hold off on Keppra for now, which is
reasonable
MRI brain noted Large chronic infarcts of the majority of the right cerebral hemisphere, the anterior left frontal lobe and left basal ganglia with cortical laminar necrosis. Peripheral rim of restricted diffusion about the infarct in the right
frontal lobe and anterior paramedian left frontal lobe suggesting acute on chronic infarction.
urine culture positive for Proteus, follow sensitivity
Cont empiric ceftriaxone
CRP noted at 18
Cont TF with water flushes
# hypothermia likely due to acute infection/UTI
TSH 7.62, FT4 at 1.85, cont Synthroid, adjusted dose from 100 to 125 mcg
cortisol level equivocal at 14, follow up stim test responded appropriately
urine culture positive for Proteus, follow sensitivity
Cont empiric ceftriaxone
# Transaminitis likely reactive
monitor LFT
Hold ACCOUNTS PAYABLE CLERK Lipitor
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
# status post lytic treatment followed by craniotomy in January 2023 for stroke
Monitor mental status,
At baseline, pt is minimally verbal but can interact with people per sons
# Paroxysmal atrial fibrillation
cont ACCOUNTS PAYABLE CLERK Eliquis through PEG
Cont ACCOUNTS PAYABLE CLERK Digoxin and sotalol through PEG
# Right upper extremity embolism requiring embolectomy in January 2023
cont ACCOUNTS PAYABLE CLERK Eliquis through PEG
# Essential hypertension
cont ACCOUNTS PAYABLE CLERK Losartan through PEG
# NIDDM
Hold ACCOUNTS PAYABLE CLERK metformin
cover with ISS
# Hypothyroidism on replacement
# Sacral decub ulcer POA
wound care on board
cont ACCOUNTS PAYABLE CLERK Doxycycline
# Recent R leg shingles
completed antiviral per family
wound care on board
DVT ppx: ACCOUNTS PAYABLE CLERK Eliquis
FC, confirmed with son
DW RN
updated son Isiah on the phone. Extensive discussion. Informed about test results. Answered all questions. Total time spent 55 min
Anticipated Discharge: > 48 hours
Subjective/Interval History
-
Date of Service: June 05, 2024
Objective Data
-
Labs:
Laboratory Results
06/05/24
04:25
WBC 8.9
Hgb 10.7 L
Hct 31.9 L
Plt Count 246
Sodium 133 L
Potassium 4.9
Chloride 98
Carbon Dioxide 25
BUN 32 H
Creatinine 0.6
Glucose 160 H
Calcium 9.4
Total Bilirubin 0.3
AST 40 H
ALT 38 H
Alkaline Phosphatase 134 H
Vital Signs:
Vital Signs
Temp Pulse Resp BP Pulse Ox
36.6 C 75 26 122/78 95
06/05/24 03:01 06/05/24 06:00 06/05/24 06:00 06/05/24 06:00 06/05/24 06:00
I&O
06/04/24 06/05/24 06/06/24
06:59 06:59 06:59
Intake Total 1545 / 1545
Output Total 300 / 300 600 / 600
Balance -300 / -300 945 / 945
Review of Systems
-
Unable to obtain full review of systems at this time due to: Patient Non-verbal
Physical Exam
-
General: Well Developed, No Apparent Distress, Comfortable and Appears Chronically Ill
HEENT: Normocephalic, Atraumatic and Moist Mucous Membranes
Respiratory: Clear to Auscultation and Non Labored Respirations; Negative Accessory Resp Muscle Use
Cardiac: Regular Rhythm and S1/S2; Negative Murmur, Rub or Gallop
GI: Soft, Nontender, Nondistended, Normal Bowel Sounds and Peg Tube
Rectal: Deferred by Provider
Musculoskeletal: No Clubbing, No Cyanosis and No Edema
Skin: Negative Rash
Neuro: Other (Noncommunicative)
Psych: Calm and Apparent Dementia; Negative Intact Judgement/Insight
Data Reviewed
-
Diagnostic Radiology: Image personally visualized and interpreted
CT Scan: Report Reviewed by me
Labs: Labs Reviewed by me
[2024-06-05] MEDS: COZAAR 25 MG TUBE (08:20)
[2024-06-05] MEDS: BETAPACE 80 MG TUBE ×2 (08:20→19:45)
[2024-06-05] MEDS: ELIQUIS 5 MG TUBE ×2 (08:21→19:46)
[2024-06-05] MEDS: DAKIN'S SOLUTION 0.125% 1/4 STRENGTH 473 ML TOPICAL ×2 (08:21→19:45)
[2024-06-05] MEDS: PREVACID 15 MG TUBE (08:21)
[2024-06-05] MEDS: SYMMETREL SYRUP 150 MG TUBE ×2 (08:21→19:46)
[2024-06-05] MEDS: VIBRAMYCIN 100 MG TUBE ×2 (08:21→19:46)
--- NOTE | 2024-06-05 08:37 | PTCARENOTE ---
pt opens eyes to touch. does not focus does not follow commands. movement seen in right arm and leg. no movement in left extremities. tube feeding running as ordered via peg tube. placement checked and flushed. pt inc of urine and stool.
sacral dressing intact.
--- NOTE | 2024-06-05 11:10 | CM ---
CM reviewed medical records. CM spoke with patient's son to confirm services in the home. Patient has [facility] for RN skilled care/wound care. Patient also had 24 hour caregivers paid by family. Patient has a hospital bed with an air mattress.
Patient has [facility] for tube feedings. Patient's son would prefer to have patient return home with services.
CM will continue to follow for needs.
[2024-06-05] MEDS: LANOXIN 125 MCG TUBE (11:34)
[2024-06-05 11:41] LABS: Glucose - Point of Care 185 mg/dl (70-99)
--- NOTE | 2024-06-05 12:33 | W.PN.NEURO.1 ---
Today's Communication / Plan
-
79 yr. old lady with h/o acute on chronic MCA infarction (RIGHT) with new seizure on Keppra and Eliquis who remains stuporous & quadriplegic
PLAN: Continue Eliquis
Continue Keppra IV q12
Fluid and nutritional support
Consider Hospice
Neuro Assessment/Plan
Assessment
Unfortunate elderly lady with large R. MCA infarction and subsequent encephalomalacia of the right cortex with dense left hemiplegia who suffered a seizure and is currently stuporous with quadriparesis
Plan
1. IV Keppra 1000 mg every 12 hourly
2. ICU monitoring
3. Eliquis 5 mg via feeding tube
4. GI prophylaxis
5. Blood pressure management
6. Blood sugar control
Overall prognosis poor and consider hospice
Subjective/Objective
Subjective Data
Date of Service: June 05, 2024
Pat remains stuporous. opens eyes to loud command. Does not follow commands
Objective Data
Vital Signs
Temp Pulse Resp BP Pulse Ox
36.3 C 69 23 118/51 95
06/05/24 11:00 06/05/24 11:34 06/05/24 08:00 06/05/24 08:20 06/05/24 08:00
Lab Results
06/05/24 04:25
06/05/24 04:25
PT 16.9 Sec (11.4-14.6) H 06/03/24 14:09
INR 1.37 06/03/24 14:09
APTT 39.0 Sec (23.4-35.0) H 06/03/24 14:09
Sodium 133 mmol/L (135-145) L 06/05/24 04:25
Potassium 4.9 mmol/L (3.5-5.1) 06/05/24 04:25
BUN 32 mg/dl (7-17) H 06/05/24 04:25
Glucose 160 mg/dl (70-99) H 06/05/24 04:25
Calcium 9.4 mg/dl (8.4-10.2) 06/05/24 04:25
LDL Cholesterol, Calc 35 mg/dl 06/03/24 10:53
Vitamin B12 > 1000 pg/ml (239-931) H 06/03/24 10:53
Ur Buprenorphine Negative (Negative) 06/03/24 12:24
Patient Allergies
No Known Allergies Allergy (Verified 06/14/23 19:31)
Physical Exam
-
General: Well Developed, Well Nourished and Appears Chronically Ill
Eyes: Unremarkable
HEENT: Normocephalic
Neck: Limited Range of Motion
Respiratory: Clear to Auscultation
Cardiac: Irregular Rhythm
Skin: Warm and Dry
Extremities: No Clubbing, No Cyanosis and Edema +1
Psych: Unable to Assess
Extended Neurological Exam
Mood & Affect: Unable to Assess
Attention Span & Concentration: Unable to assess (Stuporous)
Memory: Unable to Assess
Tremor: Hand Tremor Absent and Head Tremor Absent
Involuntary Movement: None
Speech: Expressive Aphasia, Receptive Aphasia and Mute
Cranial Nerve II: Left Eye: Pupillary Reactivity Unremarkable, Pupillary Size Unremarkable and Unable to Assess
Cranial Nerve II: Right Eye: Pupillary Reactivity Unremarkable, Pupillary Size Unremarkable and Unable to Assess
Cranial Nerves III, IV, : Extraocular Movement: Reduced
Cranial Nerve V: Facial Sensation: Reduced
Cranial Nerve VII: Facial Symmetry: Reduced
Cranial Nerve VIII: Hearing: Grossly Reduced
Cranial Nerves IX, X: Palate Movement: Unable to Assess
Cranial Nerve XI: Shoulder Shrug: Unable to Assess
Cranial Nerve XII: Tongue Protusion: Unable to Assess
Muscle Strength, Overall: Reduced Bilaterally
Muscle Bulk & Tone: Decreased Bulk and Increased Tone
Pronator Drift: Unable to Assess
Deep Tendon Reflexes: Clonus
Cold Sensation: Unable to Assess
Vibration Sensation: Unable to Assess
Touch Sensation: Withdrawal to Pain
Coordination: Unable to Assess
Babinski Sign: Present Bilaterally
Gait & Station: Unable to Assess
Modified Aster Score (MRS)
-
Modified [place] Scale (mRS): Severe disability. Requires constant nursing care.
Score: 5
Data Reviewed
-
MRI Head: Image Reviewed (Extension of previous infarction into surrounding cortex)
[2024-06-05] MEDS: ROCEPHIN 1000 MG IV (13:51)
[2024-06-05] MEDS: STERILE WATER FOR INJECTION 10 ML IV (13:51)
--- NOTE | 2024-06-05 16:05 | PTCARENOTE ---
pt having liquid bn stool. rectal trumpet placed. sacral dressing changed as ordered
[2024-06-05 18:16] LABS: Glucose - Point of Care 190 mg/dl (70-99)
[2024-06-05 23:32] LABS: Glucose - Point of Care 177 mg/dl (70-99)
[2024-06-05] MEDS: TYLENOL 650 MG TUBE (23:41)
[2024-06-06] VITALS: BP 144/56
[2024-06-06 02:00] VITALS: BP 143/65
[2024-06-06 04:00] VITALS: BP 131/59
[2024-06-06 05:12] VITALS: BMI 26.8
[2024-06-06] MEDS: SYNTHROID 125 MCG TUBE (05:13)
[2024-06-06] MEDS: NOVOLOG FLEXPEN-MODERATE RESISTANCE 1 UNITS SC (05:14)
[2024-06-06 05:25] LABS: % Basophils 0.4 % (0-2); % Eosinophils 1.7 % (0-6); % Immature Granulocytes 0.4 % (0-0.5); % Lymphocytes 27.3 % (20.5-51.1); % Monocytes 8.6 % (1.7-9.3); % Neutrophils 61.6 % (42.2-75.2); Absolute Eosinophils 0.2 10^3/uL (0-0.7); Absolute Lymphocytes 2.6 10^3/uL (1.2-3.4); Absolute Monocytes 0.8 10^3/uL (0.1-0.6); Absolute Neutrophils 5.8 10^3/uL (1.4-6.5); Hematocrit 33.6 % (37.0-47.0); Hemoglobin 11.2 g/dL (12.0-16.0); Mean Corp Hgb Conc. 33.3 g/dL (33.0-37.0); Mean Corpuscular Hgb 30.5 pg (27.0-31.0); Mean Corpuscular Volume 91.6 fL (81.0-99.0); Mean Platelet Volume 9.9 fL (7.4-10.4); Nucleated Red Blood Cells % 0 %; Platelet Count 252 10^3/uL (130-400); Red Blood Cell Count 3.67 10^6/uL (4.20-5.40); Red Cell Dist. Width 15.4 % (11.5-14.5); White Blood Cell Count 9.4 10^3/uL (4.8-10.8)
[2024-06-06 05:35] LABS: Glucose - Point of Care 182 mg/dl (70-99)
[2024-06-06 05:52] LABS: ALT (SGPT) 51 U/L (0-35); AST (SGOT) 52 U/L (14-36); Alkaline Phosphatase 171 U/L (38-126); Blood Urea Nitrogen 26 mg/dl (7-17); Calcium 9.4 mg/dl (8.4-10.2); Carbon Dioxide 26 mmol/L (22-30); Chloride 99 mmol/L (98-107); Estimated Creatinine Clearance 79 ml/min; Glucose 171 mg/dl (70-99); Potassium 4.9 mmol/L (3.5-5.1); Sodium 136 mmol/L (135-145); Total Bilirubin 0.1 mg/dl (0.2-1.3); Total Protein 5.9 g/dl (6.3-8.2); eGFR > 60.00
[2024-06-06 06:00] VITALS: BP 142/64
[2024-06-06] MEDS: SYMMETREL SYRUP 150 MG TUBE (07:41)
[2024-06-06] MEDS: VIBRAMYCIN 100 MG TUBE (07:41)
[2024-06-06] MEDS: COZAAR 25 MG TUBE (07:41)
[2024-06-06] MEDS: PREVACID 15 MG TUBE (07:41)
[2024-06-06] MEDS: DAKIN'S SOLUTION 0.125% 1/4 STRENGTH 473 ML TOPICAL (07:42)
[2024-06-06] MEDS: ELIQUIS 5 MG TUBE (07:42)
[2024-06-06] MEDS: BETAPACE 80 MG TUBE (07:42)
--- NOTE | 2024-06-06 07:46 | W.PN.HOSP.TC ---
Addendum entered and electronically signed by Nohemi Mora MD 06/06/24 13:59:
total DC time 38 min
Original Note:
Today's Communication/Plan
-
OK for discharge
Assessment / Plan
Assessment / Plan
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
in January 2023, Paroxysmal atrial fibrillation on anticoagulation with Eliquis, Essential hypertension, Insulin- dependent diabetes, Hypothyroidism on replacement; p/w sudden onset of 'unresponsiveness' with foaming at mouth and tongue hanging out,
witnessed by live-in aide. Symptoms started in the morning.
Per family at bedside, pt at baseline is minimally verbal and can interact with people. Probably not orientated due to previous stroke.
Family also informed that pt was recently diagnosed with R leg shingles and completed antiviral.
In the ED, pt is arousable with sternal rub. She cannot provide history.
A/P:
# Acute metabolic encephalopathy, unclear cause, UTI vs postictal state
CT head No acute intracranial hemorrhage.
[place] due to postictal state per neurology
EEG noted low amplitude activity, without evidence of seizure
MRI brain noted Large chronic infarcts of the right cerebral hemisphere, anterior left frontal lobe and left basal ganglia. Peripheral rim about the infarct in the right frontal lobe and anterior left frontal lobe suggesting acute on chronic
infarction.
Although Neuro recc Keppra 1000 mg every 12 hourly, family is not convinced that pt had a true seizure (hypothermia POA, infection and possible new stroke could cause decreased LOC), hence family would like to hold off on Keppra for now, which is
reasonable
urine culture positive for Proteus, sensitive to ceftriaxone
Cont ceftriaxone, can change to cefdinir upon discharge
CRP noted at 18
Cont TF with water flushes
# hypothermia likely due to acute infection/UTI, resolved
TSH 7.62, FT4 at 1.85, cont Synthroid, adjusted dose from 100 to 125 mcg
cortisol level equivocal at 14, follow up stim test responded appropriately
urine culture positive for Proteus, sensitive to ceftriaxone
Cont ceftriaxone, can change to cefdinir upon discharge
# Chronic Transaminitis
monitor LFT and check level outpt with result to PCP
Holding [employer] Lipitor during hospital stay
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
# status post lytic treatment followed by craniotomy in January 2023 for stroke
Monitor mental status,
At baseline, pt is minimally verbal but can interact with people per sons
# Paroxysmal atrial fibrillation
cont [employer] Eliquis through PEG
Cont [employer] Digoxin and sotalol through PEG
# Right upper extremity embolism requiring embolectomy in January 2023
cont [employer] Eliquis through PEG
# Essential hypertension
cont [employer] Losartan through PEG
# NIDDM
Hold [employer] metformin
cover with ISS
# Hypothyroidism on replacement
# Sacral decub ulcer POA
wound care on board
cont [employer] Doxycycline
# Recent R leg shingles
completed antiviral per family
wound care on board
DVT ppx: [employer] Eliquis
FC, confirmed with son
DW RN
updated son Isiah on the phone.
Anticipated Discharge: Today
Subjective/Interval History
-
Date of Service: June 06, 2024
Objective Data
-
Labs:
Laboratory Results
06/06/24
05:02
WBC 9.4
Hgb 11.2 L
Hct 33.6 L
Plt Count 252
Sodium 136
Potassium 4.9
Chloride 99
Carbon Dioxide 26
BUN 26 H
Creatinine 0.5 L
Glucose 171 H
Calcium 9.4
Total Bilirubin 0.1 L
AST 52 H
ALT 51 H
Alkaline Phosphatase 171 H
Vital Signs:
Vital Signs
Temp Pulse Resp BP Pulse Ox
36.1 C 64 18 142/64 96
06/06/24 05:10 06/06/24 07:41 06/06/24 06:00 06/06/24 07:42 06/06/24 06:00
I&O
06/05/24 06/06/24 06/07/24
06:59 06:59 06:59
Intake Total 1545 / 1545 2280 / 2280
Output Total 600 / 600 600 / 600
Balance 945 / 945 1680 / 1680
Review of Systems
-
Unable to obtain full review of systems at this time due to: Patient Non-verbal
Physical Exam
-
General: Well Developed, No Apparent Distress, Comfortable and Appears Chronically Ill
HEENT: Normocephalic, Atraumatic and Moist Mucous Membranes
Respiratory: Clear to Auscultation and Non Labored Respirations; Negative Accessory Resp Muscle Use
Cardiac: Regular Rhythm and S1/S2; Negative Murmur, Rub or Gallop
GI: Soft, Nontender, Nondistended, Normal Bowel Sounds and Peg Tube
Rectal: Deferred by Provider
Musculoskeletal: No Clubbing, No Cyanosis and No Edema
Skin: Negative Rash
Neuro: Other (Noncommunicative)
Psych: Calm and Apparent Dementia; Negative Intact Judgement/Insight
Data Reviewed
-
Diagnostic Radiology: Image personally visualized and interpreted
CT Scan: Report Reviewed by me
Labs: Labs Reviewed by me
--- NOTE | 2024-06-06 08:04 | PTCARENOTE ---
pt wakes to name. more alert today. makes eye contact. moves right arm to grasp move right leg no movement seen in left arm or leg. tube feeding running via peg tube placement checked and flushed. sacral dressing intact. pure wick in place.
spoke to pt son updated on pt condition and plan of care.
--- NOTE | 2024-06-06 08:59 | CM ---
Addendum entered by Griselda Navarrete RN 06/06/24 09:17:
CM updated son with 1200 medicinal plant picker time. Son confirmed that patient's caregivers will be available and son has called home care to update with discharge.
Original Note:
CM reviewed medical records. Plan for discharge to home with continued services. CM sent updated referral to [facility] for CATY.
PLAN: Home with [facility]
--- NOTE | 2024-06-06 10:38 | PTCARENOTE ---
pt inc of liquid bn stool. dressing changed as ordered.
[2024-06-06 12:15] LABS: Glucose - Point of Care 200 mg/dl (70-99)
--- NOTE | 2024-06-06 12:26 | PTCARENOTE ---
pt discharged to home. dc instructions and med list reviewed with destini.
--- NOTE | 2024-06-06 13:44 | W.DCSUMMARY ---
Discharge Summary
Discharge Data
Date of Admission: 06/03/24
Date of Discharge: 06/06/24
-
Pending Results: No
Hospital Course
Principal Diagnosis:
Acute metabolic encephalopathy with hypothermia, likely due to urinary tract infection
Chronic Diagnoses:�
Chronic Transaminitis
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
History of lytic treatment followed by craniotomy in January 2023 for stroke
Paroxysmal atrial fibrillation
Right upper extremity embolism requiring embolectomy in January 2023
Essential hypertension
Yjl-htsevbe-lsrakzoth diabetes
Hypothyroidism on replacement
Sacral decub ulcer present on admission
Recent Right leg shingles
Consultations:�
Neurology
Procedures:�
None
Clinical course:�
This is a 79 year old female with past medical history as stated above, who presented with lethargy/unresponsiveness.
She was also noted to be hypothermic in the emergency room.
Problem 1:
Acute metabolic encephalopathy with hypothermia, likely due to urinary tract infection.
Her CT head did not show any acute intracranial abnormality.
Her MRI brain noted previous large chronic infarct in the right cerebral hemisphere and anterior left frontal lobe and left basal ganglia. Peripheral rim about the infarct of the right frontal and anterior left frontal lobe was noted, suggesting
possible acute on chronic stroke.
She was initially placed on [place] hugger for hypothermia, and this was subsequently discontinued.
Her urine culture was positive for Proteus, sensitive to ceftriaxone.
She received empiric ceftriaxone while in the hospital, and was discharged with cefdinir for 3 more days.
Her mental status improved back to baseline, which is awake and minimally conversant, following antibiotic.
Given her mental status improved back to baseline, it was not felt strongly that Keppra needed to be continued (family also would like to hold off on Keppra).
Problem 2:
Chronic Transaminitis.
Her family has been informed to hold her prior to admission Lipitor until repeat LFT with the PCP.
As for the rest of her medical problems, they were stable during her hospital stay.
Discharge Plan
-
Patient Disposition: Home with Home Care
Discharge Diagnosis/Procedures: Acute metabolic encephalopathy due to urinary tract infection (UTI);
UTI with Proteus;
Chronic Transaminitis;
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
Condition: Fair
Diet: As tolerated and Other diet
Additional Diets: Tube feed
Activity: As tolerated
Driving Restrictions: No driving
Blood Work: LFT in 1 week with result to PCP
Wound Care: Wound Care Instructions
Sacral Wound- Clean with 1/4 strength Dakins, apply no-sting barrier around wound, pack wound with 4x4 silver alginate and pack. Cover with sacral foam dressing. Change BID and as needed for drainage.
Follow up at wound care center call for an appointment.
Referrals:
UNKNOWN - PT DOES,NOT KNOW [Family Provider] - in less than 1 week
Additional Discharge Medication Instructions: Continue Cefdinir for 3 more days
Prescriptions:
New
cefdinir 300 mg capsule
300 mg feeding tube BID 3 Days Qty: 6 0RF
Continued
amantadine HCl 50 mg/5 mL Solution
150 mg feeding tube BID Qty: 1800 0RF
digoxin 125 mcg (0.125 mg) Tablet
125 mcg feeding tube DAILY Qty: 30 0RF
Eliquis 5 mg Tablet
5 mg feeding tube Q12 Qty: 60 0RF
levothyroxine 100 mcg Tablet
100 mcg feeding tube DAILY@0600 Qty: 30 0RF
metformin 500 mg Tablet
500 mg feeding tube DAILY
doxycycline hyclate 100 mg Capsule
100 mg feeding tube BID
therapeutic multivitamin Tablet
1 tab feeding tube DAILY
losartan 25 mg Tablet
25 mg feeding tube DAILY
lansoprazole 15 mg Capsule,Delayed Release(Dr/Ec)
15 mg feeding tube DAILY
mupirocin 2 % Ointment
1 applic TOPICAL DAILY
Ure-Na 15 gram Powder In Packet
1 packet PO Q48H
Rx Instructions:
feeding tube
acetaminophen 325 mg tablet
650 mg feeding tube HS
sotalol 80 mg tablet
80 mg feeding tube BID
Held
atorvastatin 80 mg tablet
80 mg feeding tube HS
Hold Instructions: Resume on 06/16/24. until further directed by your PCP
Discharge Orders:
Discharge Patient (As Directed); Ordered 06/06/24
Ordered By: Nohemi Mora
Discharge Date and Time
Discharge Date/Time: 06/06/24 12:27
Print Language: [place]i
== END 2024-06-06 12:27 | disposition home health service (06) | DRG 64 ==
LOC: IMU 11:39
PROVIDERS: ADMITTING PHYSICIAN Internal Medicine; CONSULT PHYSICIAN Psychiatry & Neurology Neurology; EMERGENCY PHYSICIAN Emergency Medicine
DX: I63.511 Cerebral infarction due to unspecified occlusion or stenosis of right middle cerebral artery (principal); G93.41 Metabolic encephalopathy; R53.2 Functional quadriplegia; N39.0 Urinary tract infection, site not specified; G81.94 Hemiplegia, unspecified affecting left nondominant side; R47.01 Aphasia; I48.0 Paroxysmal atrial fibrillation; E03.9 Hypothyroidism, unspecified; E11.9 Type 2 diabetes mellitus without complications; E78.00 Pure hypercholesterolemia, unspecified; F32.A Depression, unspecified; F41.9 Anxiety disorder, unspecified; I10 Essential (primary) hypertension; L89.159 Pressure ulcer of sacral region, unspecified stage; B02.9 Zoster without complications; R56.9 Unspecified convulsions; G93.89 Other specified disorders of brain; R26.2 Difficulty in walking, not elsewhere classified; M81.0 Age-related osteoporosis without current pathological fracture; R74.01 Elevation of levels of liver transaminase levels; R68.0 Hypothermia, not associated with low environmental temperature; B96.4 Proteus (mirabilis) (morganii) as the cause of diseases classified elsewhere; I65.21 Occlusion and stenosis of right carotid artery; Z60.2 Problems related to living alone; I69.320 Aphasia following cerebral infarction; Z79.01 Long term (current) use of anticoagulants; Z86.718 Personal history of other venous thrombosis and embolism; Z87.440 Personal history of urinary (tract) infections; Z93.1 Gastrostomy status; Z79.4 Long term (current) use of insulin; Z82.3 Family history of stroke; Z82.49 Family history of ischemic heart disease and other diseases of the circulatory system; Z79.890 Hormone replacement therapy; Z79.84 Long term (current) use of oral hypoglycemic drugs; Z74.01 Bed confinement status
CPT/HCPCS: 70450; 70551; 71045; 80048; 80053; 80061; 80306; 81003; 81015; 82248; 82533; 82550; 82607; 82728; 82746; 82962; 83036; 83605; 83735; 84439; 84443; 84484; 85025; 85610; 85730; 86140; 87070; 87086; 87088; 87186; 93005; 95816; 96374; 99291

== ENCOUNTER 2024-06-11 08:57 | Emergency (ER) | payer MEDICARE, OTHER, SELFPAY ==
[2024-06-11] VITALS (8 sets, daily range): BP systolic 88–129; BP diastolic 49–69; BMI 27.5
--- NOTE | 2024-06-11 09:13 | EDRN ---
[facility] called and message left to send G tubes to replace pt's.
--- NOTE | 2024-06-11 09:36 | EDRN ---
Low temp reported to Vivek THOMAS, pt covered in warm blankets. Temp was initially 94.1 then 94.5 after it was checked a second time. Son stated pt is recovering from recent UTI.
This RN recalled [facility] for GTs though had to leave another message.
--- NOTE | 2024-06-11 09:48 | ED.GENMED ---
History of Present Illness
<Vivek Charles PA-C - Last Filed: 06/11/24 12:41>
General
Chief Complaint: Catheter/Tube Problem
Time Seen by Provider: 06/11/24 09:03
History of Present Illness
History of Present Illness:
Patient is a 79-year-old nonverbal female with past medical history of seizure disorder, hypothyroidism, hypertension, diabetes, functional quadriplegia, history of A-fib, and history of PEG tube placement, here today via EMS after her PEG tube was
removed. Patient presents today with her son who aids in the history. He reports the patient removed the PEG tube herself. She has been otherwise acting appropriately without acute abnormalities. No fevers. No vomiting. She has been otherwise
acting at her baseline.
Past History
<Vivek Charles PA-C - Last Filed: 06/11/24 12:41>
Past History
ED Past Medical History: Arrthythmia (atrial fib), CVA (Left sided weakness, Aphasia), HTN, Hypercholesterolemia, NIDDM, Hypothyroidism, Psychiatric (Anxiety, Depression) and Other (Headaches, fainting episodes, UTI, DVT. G-Tube, right upper
extremity embolism requiring urgent embolectomy 02/21.)
ED Past Surgical History: Gynecological (pelvic repair) and Other (craniotomy )
Social History
Tobacco: Non-smoker
Alcohol: None
Personal:
Living: senior care (for rehab)
Review of Systems
<Vivek Charles PA-C - Last Filed: 06/11/24 12:41>
Review of Systems
All Other Systems: ROS reviewed and negative except as documented in HPI and ROS
Phy Exam
<Vivek Charles PA-C - Last Filed: 06/11/24 12:41>
Physical Exam
Physical Exam:
GENERAL: Not alert or oriented, in no apparent distress
NECK: Supple
ENT: o/p clr, mmm.
CARDIAC: Regular rate and rhythm .
LUNGS: Clear breath sounds bilaterally, no acute respiratory distress, no wheezes/rales/rhonchi
ABDOMEN: Soft, without focal tenderness, no r/g, dressing in place over PEG tube stoma, stoma without erythema, drainage, swelling, or tenderness
NEUROLOGICAL: Not alert or oriented, not able to follow commands
SKIN: Warm and dry, skin intact.
MUSCULOSKELETAL: No edema, well perfused.
Course
<Vivek Charles PA-C - Last Filed: 06/11/24 12:41>
Orders/Labs/Results
Orders:
Orders
06/11/24 10:14
Tube Check [CR Cont Inj Eval Tube(by Rad)] Urgent
Comment:
Reason For Exam: tube
Vital Signs
Initial and Last Documented VS:
Initial Vital Signs
Pulse Resp Pulse Ox
55 15 100
06/11/24 09:03 06/11/24 09:03 06/11/24 09:03
Last Documented Vital Signs
Temp Pulse Resp BP Pulse Ox
94 F L 51 16 121/56 97
06/11/24 11:31 06/11/24 11:23 06/11/24 11:23 06/11/24 11:23 06/11/24 11:23
<Nam See DO - Last Filed: 06/11/24 10:22>
Orders/Labs/Results
Orders:
Orders
06/11/24 10:14
Tube Check [CR Cont Inj Eval Tube(by Rad)] Urgent
Comment:
Reason For Exam: tube
Vital Signs
Initial and Last Documented VS:
Initial Vital Signs
Pulse Resp Pulse Ox
55 15 100
06/11/24 09:03 06/11/24 09:03 06/11/24 09:03
Last Documented Vital Signs
Temp Pulse Resp BP Pulse Ox
94 F L 51 16 121/56 97
06/11/24 11:31 06/11/24 11:23 06/11/24 11:23 06/11/24 11:23 06/11/24 11:23
Procedures
<Nam See DO - Last Filed: 06/11/24 10:22>
Other
Indication for procedure:: Feeding tube
Procedure completed by: Mayi
Consent form signed: No
Additional Procedure:
Verbal consent, unable to place 20-gauge tube, 18-gauge placed without difficulty
<Vivek Charles PA-C - Last Filed: 06/11/24 12:41>
MDM/Problems Addressed
Differential Diagnosis Includes:
Patient is a 79-year-old nonverbal female with past medical history of seizure disorder, hypothyroidism, hypertension, diabetes, functional quadriplegia, history of A-fib, and history of PEG tube placement, here today via EMS after her PEG tube was
removed. Overall, patient appears well. On exam, patient noted to have a stoma where her PEG tube was in place. PEG tube is noted to be a 20 [place]. PEG tube was replaced successfully. X-ray obtained after reveals to be in anatomical position.
Of note, patient noted to have a decreased temperature rectally. Discussed with patient's son who states patient is currently at her baseline and a decreased temperature is normal. He states that the temperature typically increases when she moves
around but when sedentary this is noted to be low. Case was discussed with attending, Dr. See. Given patient is currently at her baseline will not perform additional testing for this. Patient will be discharged at this time with
recommendations to follow-up with her doctor. All questions answered. Stable for discharge.
<Vivek Charles PA-C - Last Filed: 06/11/24 12:41>
*Critical Care Note
Total Time (30-74mins, 75-104mins- exclusive of procedures): Not Applicable
ED Attending Note
<Vivek Charles PA-C - Last Filed: 06/11/24 12:41>
-
Portions of this chart may have been created with voice recognition software.� Occasional wrong word or��sound alike� substitutions may have occurred due to the inherent limitations of voice recognition software.
<Nam See, DO - Last Filed: 06/11/24 10:22>
ED Attending Note
Patient seen and examined by attending physician: Yes
I performed the substantive portion of visit, reviewed & personally made and approve the management plan that is documented in note by myself or KEYUR.: Yes
ED Attending Note:
Seen with PA examined independently feeding tube replaced
Discharge Plan
Departure
Patient Disposition: Home (Routine Discharge)
Date of Disposition: 06/11/24
Time of Disposition: 11:43
Patient with high blood pressure during this ER visit?: No
Condition: Good
Covid-19: Not Applicable
Discharge Problem:
Malfunction of percutaneous endoscopic gastrostomy (PEG) tube
Instructions: How to Care for Your Gastrostomy Tube
Prescriptions:
No Action
amantadine HCl 50 mg/5 mL Solution
150 mg feeding tube BID Qty: 1800 0RF
digoxin 125 mcg (0.125 mg) Tablet
125 mcg feeding tube DAILY Qty: 30 0RF
Eliquis 5 mg Tablet
5 mg feeding tube Q12 Qty: 60 0RF
levothyroxine 100 mcg Tablet
100 mcg feeding tube DAILY@0600 Qty: 30 0RF
metformin 500 mg Tablet
500 mg feeding tube DAILY
doxycycline hyclate 100 mg Capsule
100 mg feeding tube BID
therapeutic multivitamin Tablet
1 tab feeding tube DAILY
losartan 25 mg Tablet
25 mg feeding tube DAILY
lansoprazole 15 mg Capsule,Delayed Release(Dr/Ec)
15 mg feeding tube DAILY
mupirocin 2 % Ointment
1 applic TOPICAL DAILY
Ure-Na 15 gram Powder In Packet
1 packet PO Q48H
Rx Instructions:
feeding tube
atorvastatin 80 mg tablet
80 mg feeding tube HS
acetaminophen 325 mg tablet
650 mg feeding tube HS
sotalol 80 mg tablet
80 mg feeding tube BID
cefdinir 300 mg capsule
300 mg feeding tube BID 3 Days Qty: 6 0RF
Referrals:
PRIVATE,PHYSICIAN [Family Provider] -
Activity Restrictions/Additional Instructions:
Your PEG tube was replaced.
Continue to use this as directed.
Follow-up with your doctor as needed/routinely.
Return for any new, worsening, or concerning symptoms.
Interventions
Interventions:
*Risk Screen - Suicide Last Done: 06/11/24 09:07
*General Assessment Last Done: 06/11/24 09:16
*Neglect/Abuse Screening Last Done: 06/11/24 09:07
ED- Fall Risk Assessment Last Done: 06/11/24 09:16
*ED COVID-19 Vaccine History Last Done: 06/11/24 09:16
EG-Sagjvm-Wdxdchsaai Assessment Last Done: 06/11/24 09:26
ED-Female Genitourinary Assessment Last Done: 06/11/24 09:26
Discharge Date and Time
Print Language: [place]
--- NOTE | 2024-06-11 10:26 | EDRN ---
G TUbe placed and drainage dressing placed on site for slight bleeding.
--- NOTE | 2024-06-11 11:24 | EDRN ---
Vivek THOMAS in to speak w/ son at this time. Pt to be discharged. Clerked called for ambulance transport for pt back to her home.
--- NOTE | 2024-06-11 11:41 | EDRN ---
Pt is awaiting discharge transport. Tube is in place at this time.
--- NOTE | 2024-06-11 12:42 | EDRN ---
Pt has large sacral decubitis w/ dressing over area. Pt's diaper was changed w/ good pericare. Pt was repositioned w/ hip tilt to R at this time to get her off her sacral area.
== END 2024-06-11 14:07 | disposition home or self-care (01) ==
LOC: EMR 08:57
PROVIDERS: EMERGENCY PHYSICIAN Emergency Medicine
DX: K94.23 Gastrostomy malfunction (principal); I48.91 Unspecified atrial fibrillation; I10 Essential (primary) hypertension; E03.9 Hypothyroidism, unspecified; E11.9 Type 2 diabetes mellitus without complications; E78.00 Pure hypercholesterolemia, unspecified; G40.909 Epilepsy, unspecified, not intractable, without status epilepticus; R53.2 Functional quadriplegia; Z86.718 Personal history of other venous thrombosis and embolism; Z86.73 Personal history of transient ischemic attack (TIA), and cerebral infarction without residual deficits; Z87.440 Personal history of urinary (tract) infections
CPT/HCPCS: 99282; 43762; 49465

== ENCOUNTER 2024-08-10 12:27 | Inpatient (IN) | payer MEDICARE, OTHER, SELFPAY ==
[2024-08-10] VITALS (13 sets, daily range): BP systolic 101–147; BP diastolic 31–82
--- NOTE | 2024-08-10 08:18 | ED.GENMED ---
History of Present Illness
General
Chief Complaint: Breathing Problem
Source: patient
Exam Limitations: none
Time Seen by Provider: 08/10/24 08:10
History of Present Illness
History of Present Illness:
79-year-old female presents via EMS from home. She is nonverbal with history of stroke chronic left-sided deficit and right-sided gaze. She is tube fed. Son called because of breathing issues. Cannot provide any history. History of A-fib per
chart. On Eliquis. She was hypoxic for EMS and they placed her on 6 L of oxygen.
Past History
Past History
ED Past Medical History: Arrthythmia (atrial fib), CVA (Left sided weakness, Aphasia), HTN, Hypercholesterolemia, NIDDM, Hypothyroidism, Psychiatric (Anxiety, Depression) and Other (Headaches, fainting episodes, UTI, DVT. G-Tube, right upper
extremity embolism requiring urgent embolectomy 02/21.)
ED Past Surgical History: Gynecological (pelvic repair) and Other (craniotomy )
Social History
Tobacco: Non-smoker
Alcohol: None
Personal:
Living: halfway (for rehab)
Phy Exam
Physical Exam
Physical Exam:
General: Chronically ill-appearing female with increased work of breathing
HEENT: Normocephalic rightward gaze
Heart: Tachycardic but regular
Lungs: Rhonchorous throughout
Abdomen G-tube present. Soft and nontender
Extremities: No cyanosis or edema skin is warm no rash
Scores
Heart Failure Risk
Heart Failure Risk Score: Not Applicable
Sepsis
Sepsis Screening
Sepsis Assessment: Sepsis
Sepsis Screen
Sepsis Screen: Sepsis
Date: 08/10/24
Time: 10:07
Course
Orders/Labs/Results
Orders:
Orders
08/10/24 08:11
Electrocardiogram (*1) Urgent
Reason for Study: Shortness of Breath
EKG- Treatment ONCE
08/10/24 08:17
CR Chest Portable - 1 View Urgent
Comment:
Reason For Exam: sob
Reason Study Needs to be Portable: Unable to Transport
08/10/24 08:25
COVID-19 Antigen Urgent
Source: Nasal Swab
Complete Blood Count/With Diff Urgent
Lactic Acid Q4H
Comment: CANCEL 2nd LACTIC ACID IF 1st LACTIC ACID IS LESS THAN 2
Manual Differential Urgent
NT-proBNP Urgent
Blood Culture Q30M
JHOAN Source: Blood/Venous
Specimen Description:
Influenza A+B Rapid Molecular Urgent
JHOAN Source: Nasal Swab
Specimen Description:
08/10/24 08:26
Acetaminophen 1000MG/100Ml [Ofirmev] 1,000 mg in 100 ml IV ONCE
Acetaminophen IV Indication:: No VA & No Enteral Access
08/10/24 08:27
Blood Culture Q30M
JHOAN Source: Blood/Venous
Specimen Description:
08/10/24 08:53
Piperacillin/Tazo 3.375 Gram [Zosyn] 3.375 gram in 50 ml IV NOW
08/10/24 08:54
0.9% Sodium Chloride 1000 ml [Nss] 2,400 ml IV NOW STA
08/10/24 09:04
Vancomycin [Vancocin] 2,000 mg 0.9% Sodium Chloride 500 ml [Nss] 500 ml IV NOW
08/10/24 09:12
Comprehensive Metabolic Panel Urgent
08/10/24 12:30
Lactic Acid Q4H
Comment: CANCEL 2nd LACTIC ACID IF 1st LACTIC ACID IS LESS THAN 2
Abnormal Lab Results
08/10/24 08/10/24
08:25 09:12
WBC 13.7 H 10^3/uL
(4.8-10.8)
RBC 4.15 L 10^6/uL
(4.20-5.40)
MCHC 32.5 L g/dL
(33.0-37.0)
RDW 16.6 H %
(11.5-14.5)
Plt Count 438 H 10^3/uL
(130-400)
Abs Neuts (Manual) 9.7 H 10^3/uL
(1.4-6.5)
Band Neutrophils 12 H %
(0-3)
Lymphocytes (Manual) 15 L %
(20-51)
BUN 33 H mg/dl
(7-17)
Glucose 207 H mg/dl
(70-99)
Lactic Acid 3.7 H mmol/L
(0.7-2.0)
08/10/24 08:25
08/10/24 09:12
Vital Signs
Initial and Last Documented VS:
Initial Vital Signs
Pulse Ox
95
08/10/24 08:15
Last Documented Vital Signs
Temp Pulse Resp BP Pulse Ox
101.4 F H 93 38 104/60 98
08/10/24 08:16 08/10/24 09:00 08/10/24 09:00 08/10/24 09:00 08/10/24 09:00
MDM/Problems Addressed
Differential Diagnosis Includes:
Increased work of breathing. Question pneumonia versus COVID versus aspiration. Does not appear volume overloaded. Will get x-ray chest COVID flu test labs cultures. Currently she is on 4 L of oxygen and 94%
*Critical Care Note
Total Time (30-74mins, 75-104mins- exclusive of procedures): Not Applicable
Update Note
Update Note:
Patient has sepsis secondary to left lower lobe pneumonia. Septic bolus of fluid ordered vancomycin and Zosyn ordered. Chest x-ray reviewed. White blood cell count is 13.7 with a lactic of 3.7. Hospitalist notified. Relayed information to the
patient's son who is now in the room
ED Attending Note
-
Portions of this chart may have been created with voice recognition software.� Occasional wrong word or��sound alike� substitutions may have occurred due to the inherent limitations of voice recognition software.
Discharge Plan
Departure
Patient Disposition: Admit
Date of Disposition: 08/10/24
Time of Disposition: 10:06
Admit to: Telemetry
Presentation/result/management discussed w/ accepting MD/DO: Hospitalist
Discharge Problem:
Sepsis, Pneumonia
Prescriptions:
No Action
amantadine HCl 50 mg/5 mL Solution
150 mg feeding tube BID Qty: 1800 0RF
digoxin 125 mcg (0.125 mg) Tablet
125 mcg feeding tube DAILY Qty: 30 0RF
Eliquis 5 mg Tablet
5 mg feeding tube Q12 Qty: 60 0RF
levothyroxine 100 mcg Tablet
100 mcg feeding tube DAILY@0600 Qty: 30 0RF
metformin 500 mg Tablet
500 mg feeding tube DAILY
doxycycline hyclate 100 mg Capsule
100 mg feeding tube BID
therapeutic multivitamin Tablet
1 tab feeding tube DAILY
losartan 25 mg Tablet
25 mg feeding tube DAILY
lansoprazole 15 mg Capsule,Delayed Release(Dr/Ec)
15 mg feeding tube DAILY
mupirocin 2 % Ointment
1 applic TOPICAL DAILY
Ure-Na 15 gram Powder In Packet
1 packet PO Q48H
Rx Instructions:
feeding tube
acetaminophen 325 mg tablet
650 mg feeding tube BID
sotalol 80 mg tablet
80 mg feeding tube BID
ondansetron HCl [Zofran] 4 mg Tablet
4 mg feeding tube Q6HPRN PRN (Reason: nausea)
Interventions
Interventions:
*Risk Screen - Suicide Last Done: 08/10/24 08:16
*General Assessment Last Done: 08/10/24 08:16
*Neglect/Abuse Screening Last Done: 08/10/24 08:16
ED- Fall Risk Assessment Last Done: 08/10/24 08:15
*ED COVID-19 Vaccine History Last Done: 08/10/24 08:16
ED- Cardiac Assessment Last Done: 08/10/24 08:15
ED- Pulmonary Assessment Last Done: 08/10/24 08:15
Discharge Date and Time
Print Language: Mexican
[2024-08-10] MEDS: OFIRMEV 100 IV (08:32)
[2024-08-10 08:51] LABS: Hematocrit 38.1 % (37.0-47.0); Hemoglobin 12.4 g/dL (12.0-16.0); Mean Corp Hgb Conc. 32.5 g/dL (33.0-37.0); Mean Corpuscular Hgb 29.9 pg (27.0-31.0); Mean Corpuscular Volume 91.8 fL (81.0-99.0); Platelet Count 438 10^3/uL (130-400); Red Blood Cell Count 4.15 10^6/uL (4.20-5.40); Red Cell Dist. Width 16.6 % (11.5-14.5); White Blood Cell Count 13.7 10^3/uL (4.8-10.8)
[2024-08-10 08:56] LABS: COVID-19 Antigen Negative (Negative)
[2024-08-10 09:03] LABS: NT-proBNP 1870 pg/ml
[2024-08-10 09:07] LABS: Lactic Acid 3.7 mmol/L (0.7-2.0)
[2024-08-10] MEDS: ZOSYN 50 IV (09:12)
[2024-08-10] MEDS: VANCOCIN 540 MG IV (09:21)
[2024-08-10] MEDS: NSS 2400 ML IV (09:22)
[2024-08-10 09:40] LABS: ALT (SGPT) 19 U/L (0-35); AST (SGOT) 21 U/L (14-36); Albumin 3.5 g/dl (3.5-5.0); Alkaline Phosphatase 78 U/L (38-126); Blood Urea Nitrogen 33 mg/dl (7-17); Calcium 9.4 mg/dl (8.4-10.2); Carbon Dioxide 27 mmol/L (22-30); Chloride 100 mmol/L (98-107); Estimated Creatinine Clearance 74 ml/min; Glucose 207 mg/dl (70-99); Potassium 5.1 mmol/L (3.5-5.1); Sodium 138 mmol/L (135-145); Total Bilirubin 0.6 mg/dl (0.2-1.3); Total Protein 6.3 g/dl (6.3-8.2); eGFR > 60.00
[2024-08-10 09:59] LABS: Absolute Neutrophils -Man Diff 9.7 10^3/uL (1.4-6.5); Atypical Lymphocytes 5 %; Band Neutrophils 12 % (0-3); Eosinophils 2 % (0-6); Lymphocytes 15 % (20-51); Monocytes 7 % (2-9); Normal RBC Morphology Yes; Platelets Checked Yes; Segmented Neutrophils 59 % (42-75); Total Cells Counted 100
--- NOTE | 2024-08-10 10:10 | HPS.HSE ---
Family Physician
-
Family Physician:
Chief Complaint
-
Shortness of breath
History of Present Illness
79 female functional quadriplegia since her stroke a year ago January 2023 right hemispheric with residual left hemiparesis nonverbal, history lytic treatment complicated with need for craniotomy, paroxysmal A-fib, hypertension vls-ksnfras-fbyfeecjw
diabetes, hypothyroidism, sacral decub ulcer, BIBEMS d/t son concern patient short of breath, requiring 4L on ED eval. Per son EMIGDIO Katz, there was an illness running through the family that he believed patient caught resulting in an episode nausea
vomiting. Patient became progressively dyspneic prompting EMS call. Along with 4L requirement, ED eval notable for Fever 101.4 sinus tachycardia, leukocytosis, and lactic acidosis 3.7 concerning for severe sepsis. BP stable.
Medical History
Past Medical History
Past Medical History: Reports Other (as above)
Past Surgical History: Reports Other (as above)
Social History
Tobacco: Non-smoker
Alcohol: None
Drug: None
Living: With Family
Employment: Disabled
Family History
Family History: Not pertinent (reviewed)
Allergies / Home Medications
Allergies reflects when Allergies were last updated in [facility].
Home Medications with original date entered in [facility]
Allergy/Medication List:
Allergies
Allergy/AdvReac Type Severity Reaction Status Date / Time
No Known Allergies Allergy Verified 08/10/24 08:30
Home Medications
amantadine HCl 50 mg/5 mL oral solution 150 mg (15 mL) feeding tube BID #1,800 mL 06/25/23
apixaban 5 mg tablet (Eliquis) 5 mg feeding tube Q12 #60 tabs 06/25/23
digoxin 125 mcg (0.125 mg) tablet 125 mcg feeding tube DAILY #30 tabs 06/25/23
levothyroxine 100 mcg tablet 100 mcg feeding tube DAILY@0600 #30 tabs 06/25/23
acetaminophen 325 mg tablet 650 mg feeding tube BID Pain 06/03/24
doxycycline hyclate 100 mg capsule 100 mg feeding tube BID Infection 06/03/24
lansoprazole 15 mg capsule,delayed release 15 mg feeding tube DAILY Gastrointestinal Issue 06/03/24
losartan 25 mg tablet 25 mg feeding tube DAILY Blood Pressure 06/03/24
metformin 500 mg tablet 500 mg feeding tube DAILY Diabetes 06/03/24
mupirocin 2 % topical ointment 1 applic topical DAILY bed sore 06/03/24
sotalol 80 mg tablet 80 mg feeding tube BID Arrhythmia 06/03/24
therapeutic multivitamin 1 tab feeding tube DAILY Supplement 06/03/24
urea 15 gram oral powder packet (Ure-Na) 1 packet PO Q48H SIADH 06/03/24
ondansetron HCl 4 mg tablet 4 mg feeding tube Q6HPRN PRN nausea 08/10/24
Review of Systems
-
Unable to obtain full review of systems at this time due to: Patient Non-verbal
Physical Exam
Vital Signs
Vital Signs
Temp Pulse Resp BP Pulse Ox
101.4 F H 93 38 104/60 98
08/10/24 08:16 08/10/24 09:00 08/10/24 09:00 08/10/24 09:00 08/10/24 09:00
Physical Exam
General: Other (as below)
Laboratory Results
-
08/10/24 08:25
08/10/24 09:12
Laboratory Results
Lactic Acid 3.7 mmol/L (0.7-2.0) H 08/10/24 08:25
Total Bilirubin 0.6 mg/dl (0.2-1.3) 08/10/24 09:12
AST 21 U/L (14-36) 08/10/24 09:12
ALT 19 U/L (0-35) 08/10/24 09:12
Alkaline Phosphatase 78 U/L (38-126) 08/10/24 09:12
Impression/Plan
-
Physical Exam
General: No pallor, cyanosis, or jaundice.
HEENT: Normocephalic atraumatic on nasal cannula supplementation 4L
NECK: Supple. No JVD Carotid Bruits
RESPIRATORY: Diffuse Rhonchi
CVS: S1, S2 sinus tachy. No murmur, rub or gallop.
ABDOMEN: Soft, non-tender. No distension. BS+/normal. G-tube present
EXTREMITIES: No peripheral cyanosis or edema.
OPERATIONS CONSULTANT: Awake responsive to physical and verbal stimuli but nonverbal, left sided hemiparesis, some RUE RLE mobility noted though unable to lift from bed.
IMPRESSION:
79 female functional quadriplegia since her stroke a year ago January 2023 right hemispheric with residual left hemiparesis nonverbal dysphagia s/p G-tube, history lytic treatment complicated with need for craniotomy, paroxysmal A-fib, hypertension
mwe-kvsdypp-hizrizejr diabetes, hypothyroidism, sacral decub ulcer, BIBEMS d/t son concern patient short of breath, requiring 4L on ED eval. Per son EMIGDIO Katz, there was an illness running through the family that he believed patient caught resulting
in an episode nausea vomiting. Patient became progressively dyspneic prompting EMS call. Along with 4L requirement, ED eval notable for Fever 101.4 sinus tachycardia, leukocytosis, and lactic acidosis 3.7 concerning for severe sepsis. BP stable.
PLAN:
#Sepsis Aspiration Pneumonia (fever tachycardia Leukocytosis)
IMU admit
once IV Tylenol given in ED
cont prn PO tylenol via G-tube
CXR appreciated left basilar/lower lobe pna
initial Lactic acid 3.7 follow up repeat following bolus
empiric Vanc Zosyn
COVID Flu Neg
follow blood cultures
ID Pulm eval
aspiration precautions
#Hx Stroke lytic therapy complicated with craniotomy
#paroxysmal afib
#Functional Quadriplegia
#dysphagia s/p G-tube
Meds via tube
Cont Eliquis, digoxin (check dig level), sotalol
con PPI
GI eval, son expressed concern tube leaking.
#HTN
hold home losartan d/t low normal pressures sepsis concerns.
#DM
recent A1c 6.9
hold home Metformin d/t Lactic Acidosis
Low dose sliding scale Q6
#Hypothyroidism
cont home synthroid
dvt ppx Eliquis
gi ppx PPI
Full Code as per son Sterling POA at bedside
I spent a total of 80 minutes with the patient or on the floor. More than 50% of this time involved counseling and coordination of care.
[2024-08-10 12:41] LABS: Lactic Acid 2.3 mmol/L (0.7-2.0)
--- NOTE | 2024-08-10 13:49 | CON.GI ---
Addendum entered and electronically signed by Sruthi Cotto MD 08/10/24 16:10:
I saw and examined the patient.
The OUTDOOR PURSUITS INSTRUCTOR's note was reviewed and I agree with the note.
Comment: This is a 79-year-old female with prior history of CVA status post tPA and craniotomy in 2022 had a trach and PEG trach was subsequently reversed, functional quadriplegia, aphasia,sz disorder, paroxysmal A-fib on Eliquis, hypertension,
diabetes, hypothyroidism, sacral decub who presented to the emergency room with symptoms of nausea vomiting and was noted to have aspiration pneumonia on imaging she is also febrile and tachycardic and has been started on antibiotics and we were
consulted for possible peg leak. On exam she was noted to have migration of PEG with Y port at the skin and our OUTDOOR PURSUITS INSTRUCTOR Suha Truong adjusted the tube and pulled it back to 5 cm at the skin and the tube check shows that the PEG is in the stomach now.
Assessment and plan aspiration pneumonia most likely related to vomiting which could have been related to the migrated PEG with the migrated balloon likely causing gastric outlet obstruction if it was obstructing at the pylorus or beyond. It has
been readjusted now and it is in place okay to use the PEG but if she does have recurrence of aspiration may need to change that to a GJ tube and may also need repeat speech eval since the family does sometimes feed her by mouth also to make sure it
is safe to have p.o. intake without aspiration risk. If there is still a leak around the PEG site may need to switch it out to a larger size PEG
Original Note:
Consultation
-
Date/Time Consultation Requested: 08/10/24 1250
Date/Time Consultation Performed: 08/10/24 1350
Requesting Provider: Harvinder Walton MD
Performing Provider: OBDULIO Elizabeth, Sruthi Cotto MD
Reason for Consultation: leaking peg
Medical History
Chief Complaint / HPI
Chief Complaint: vomiting
History of Present Illness:
Pt is a 79yo with hx CVA, chronic peg, left sided weakness, aphagia, non verbal with need for lytic treatment complicated with need for craniotomy, seizure disorder, PAF, HTN, NIDDM, hypothyroidism, sacral decub with admission with recent GI
illness with nausea, vomiting and diarrhea. On admission there was concern for aspiration PNA. Asked to see fo peg leakage. Per family pt had peg replaced several weeks ago with original tube in place last 2 years. Pt currently maintain on oral
diet with soft foods and and tube feeds. She take [employer] peptide tube feed with 3 cartons daily.
Per family no issue with GERD, abdominal pain, constipation or bleeding. Pt on chronic Eliquis with hx CVA. Hx EGD with peg placement at [facility]. Last colonoscopy 5 yeas ago.
Past Medical History
Past Medical History: HTN, Hypercholesterolemia, Hypothyroidism, NIDDM, Psychiatric (anxiety/depression) and Other (headaches, fainting episodes, DVT, right upper extremity ebolism requiring embolectomy)
Past Surgical History: Gynecological (pelvic repair) and Other (cariotomy)
Social History
Tobacco: Non-Smoker
Alcohol: None
Drug: None
Living: Alone (with private caregivers )
Employment: Retired
Family History
Family History: Other (no family hx colon CA or polyps)
Allergies / Home Medications
Allergy/AdvReac Type Severity Reaction Status Date / Time
No Known Allergies Allergy Verified 08/10/24 08:30
�Medication �Instructions �Recorded
amantadine HCl 50 mg/5 mL oral 150 mg (15 mL) feeding tube BID 06/25/23
solution #1,800 mL
apixaban 5 mg tablet (Eliquis) 5 mg feeding tube Q12 #60 tabs 06/25/23
digoxin 125 mcg (0.125 mg) tablet 125 mcg feeding tube DAILY #30 tabs 06/25/23
levothyroxine 100 mcg tablet 100 mcg feeding tube DAILY@0600 06/25/23
#30 tabs
acetaminophen 325 mg tablet 650 mg feeding tube BID Pain 06/03/24
doxycycline hyclate 100 mg capsule 100 mg feeding tube BID Infection 06/03/24
lansoprazole 15 mg capsule,delayed 15 mg feeding tube DAILY 06/03/24
release Gastrointestinal Issue
losartan 25 mg tablet 25 mg feeding tube DAILY Blood 06/03/24
Pressure
metformin 500 mg tablet 500 mg feeding tube DAILY Diabetes 06/03/24
mupirocin 2 % topical ointment 1 applic topical DAILY bed sore 06/03/24
sotalol 80 mg tablet 80 mg feeding tube BID Arrhythmia 06/03/24
therapeutic multivitamin 1 tab feeding tube DAILY Supplement 06/03/24
urea 15 gram oral powder packet 1 packet PO Q48H SIADH 06/03/24
(Ure-Na)
ondansetron HCl 4 mg tablet 4 mg feeding tube Q6HPRN PRN nausea 08/10/24
Review of Systems
-
Unable to obtain full review of systems at this time due to: Patient Non Verbal
History Source: Patient and Family
Constitutional: Reports Fever (on admission ) and Weight Gain (with )
EENT: Reports No Symptoms
Respiratory: Reports Trouble Breathing
Cardiac: Reports No Symptoms
Abdomen/GI: Reports Nausea, Vomiting, Diarrhea and Other (peg with leakagae )
: Reports No Symptoms
Musculoskeletal: Reports No Symptoms
Skin: Reports No Symptoms
Neurological: Reports Weakness
Endocrine: Reports No Symptoms
Hematologic/Lymphatic: Reports No Symptoms
Vital Signs
Temp Pulse Resp BP Pulse Ox
99.1 F 89 34 147/69 97
08/10/24 13:00 08/10/24 13:00 08/10/24 13:00 08/10/24 12:00 08/10/24 13:00
Physical Exam
Exam
General: Well Developed, Well Nourished and No Apparent Distress
HEENT: Normocephalic and Anicteric
Respiratory: Clear
Cardiac: Regular Rhythm
GI: Soft, Non Tender, Non Distended and Other (peg noted displaced at Y port at skin)
Musculoskeletal: No Clubbing and No Cyanosis
Skin: Warm and Dry
Neuro: Awake and Other (non verbal )
Psych: Calm
Results
WBC 13.7 10^3/uL (4.8-10.8) H 08/10/24 08:25
Hgb 12.4 g/dL (12.0-16.0) 08/10/24 08:25
Hct 38.1 % (37.0-47.0) 08/10/24 08:25
MCV 91.8 fL (81.0-99.0) 08/10/24 08:25
Plt Count 438 10^3/uL (130-400) H 08/10/24 08:25
Sodium 138 mmol/L (135-145) 08/10/24 09:12
Potassium 5.1 mmol/L (3.5-5.1) 08/10/24 09:12
Chloride 100 mmol/L (98-107) 08/10/24 09:12
Carbon Dioxide 27 mmol/L (22-30) 08/10/24 09:12
BUN 33 mg/dl (7-17) H 08/10/24 09:12
Creatinine 0.7 mg/dL (0.6-1.0) 08/10/24 09:12
Calcium 9.4 mg/dl (8.4-10.2) 08/10/24 09:12
Total Bilirubin 0.6 mg/dl (0.2-1.3) 08/10/24 09:12
AST 21 U/L (14-36) 08/10/24 09:12
ALT 19 U/L (0-35) 08/10/24 09:12
Alkaline Phosphatase 78 U/L (38-126) 08/10/24 09:12
Diagnostic Image Results:
08/10 CXR
Findings suspicious for left basilar/left lower lobe pneumonia.
Prior GI Procedures:
EGD: peg placement at [facility]
Colonoscopy: Last colonoscopy 5 yeas ago
Assessment / Plan
-
Pt is a 79yo with hx CVA, chronic peg, left sided weakness, aphagia, non verbal with need for lytic treatment complicated with need for craniotomy, seizure disorder, PAF, HTN, NIDDM, hypothyroidism, sacral decub with admission with recent GI
illness with nausea, vomiting and diarrhea. On admission there was concern for aspiration PNA. Asked to see fo peg leakage. Per family pt had peg replaced several weeks ago with original tube in place last 2 years. Pt currently maintain on oral
diet with soft foods and and tube feeds. She take [employer] peptide tube feed with 3 cartons daily.
-peg malfunction with migrated peg
-with peg migration concern for SBO with balloon with vomiting and aspiration PNA with sepsis
-leukocytosis /elevated lactate
-tachycardia
-hx CVA
-prior elevated LFT's now resolved
other med problems:
-HTN
-DM
-hypothyroidism
-PAF
-NIDDM
-sacral decub
PLAN:
concern for peg migration on exam
if tube migrated to SB may have lead to SBO by balloon with vomiting and aspiration
I pulled back peg to 5 cm at bumper
will get tube check to confirm placement
educated son on need to keep tube at 5 cm
if continued issues with tube migration can try to downsize balloon or add Bead o ring
will check if am to make sure tube maintaining position
-
-
Thank you for consultation and allowing me to participate in the patient's care. Please call the rn liaison GI physician during the after hours with any questions or concerns.
--- NOTE | 2024-08-10 13:50 | CON.PUL ---
Consultation
Consultation Request
Date/Time Consultation Requested: 08/10/24
Date/Time Consultation Performed: 08/10/24
Performing Provider: Hipolito
Reason for Consultation: PNA
Medical History
-
History of Present Illness:
Patient is a 79 year old female with history of devastating CVA s/p tPA/craniotomy at [facility], functional quadriplegia with chronic aphasia/nonverbal, paroxysmal A-fib, hypertension [id number] diabetes, hypothyroidism, sacral decub ulcer
stage IV seen here at ER for SOB and hypoxemia. On arrival to ER, she was notably hypoxemic (86% on RA) and placed on 4L NC. She was previously trach/PEG, but her trach was reversed some time following her admission. She remains on TFs via PEG
but son notes she still eats somewhat by mouth. Son states, patient had N/V at home, possible aspiration. CXR showing LLL consolidation suspicious for PNA. She also had fever 101.4F, sinus tachycardia, leukocytosis, and lactic acidosis 3.7 on
admission concerning for severe sepsis.
Patient does not give ROS.
Past Medical History
Past Medical History: Other (see list below)
Social History
Tobacco: Non-smoker
Alcohol: None
Drug: None
Family History
Family History: Reviewed & Not Pertinent
Allergies / Home Medications
Allergies
Allergy/AdvReac Type Severity Reaction Status Date / Time
No Known Allergies Allergy Verified 08/10/24 08:30
Home Medications
�Medication �Instructions �Recorded �Confirmed �Last Taken �Type
amantadine HCl 50 mg/5 mL oral 150 mg (15 mL) feeding tube BID 06/25/23 08/10/24 08/10/24 Rx
solution #1,800 mL
apixaban 5 mg tablet (Eliquis) 5 mg feeding tube Q12 #60 tabs 06/25/23 08/10/24 08/10/24 Rx
digoxin 125 mcg (0.125 mg) tablet 125 mcg feeding tube DAILY #30 tabs 06/25/23 08/10/24 08/10/24 Rx
levothyroxine 100 mcg tablet 100 mcg feeding tube DAILY@0600 06/25/23 08/10/24 08/10/24 Rx
#30 tabs
acetaminophen 325 mg tablet 650 mg feeding tube BID Pain 06/03/24 08/10/24 08/10/24 History
doxycycline hyclate 100 mg capsule 100 mg feeding tube BID Infection 06/03/24 08/10/24 08/10/24 History
lansoprazole 15 mg capsule,delayed 15 mg feeding tube DAILY 06/03/24 08/10/24 08/10/24 History
release Gastrointestinal Issue
losartan 25 mg tablet 25 mg feeding tube DAILY Blood 06/03/24 08/10/24 08/10/24 History
Pressure
metformin 500 mg tablet 500 mg feeding tube DAILY Diabetes 06/03/24 08/10/24 08/10/24 History
mupirocin 2 % topical ointment 1 applic topical DAILY bed sore 06/03/24 08/10/24 Unknown History
sotalol 80 mg tablet 80 mg feeding tube BID Arrhythmia 06/03/24 08/10/24 08/10/24 History
therapeutic multivitamin 1 tab feeding tube DAILY Supplement 06/03/24 08/10/24 08/10/24 History
urea 15 gram oral powder packet 1 packet PO Q48H SIADH 06/03/24 08/10/24 Unknown History
(Ure-Na)
ondansetron HCl 4 mg tablet 4 mg feeding tube Q6HPRN PRN nausea 08/10/24 08/10/24 Unknown History
Review of Systems
-
History Source: Patient
All other systems: Negative unless noted
Vitals / Labs / Diagnostic Testing
Vital Signs
Temp Pulse Resp BP Pulse Ox
99.1 F 89 34 147/69 97
08/10/24 13:00 08/10/24 13:00 08/10/24 13:00 08/10/24 12:00 08/10/24 13:00
Lab Data
08/10/24 08:25
08/10/24 09:12
Microbiology
08/10/24 08:25 Nasal Swab Influenza Types A & B (JENA) - Final
Negative for Influenza A & B, NAAT
Negative results must be combined with clinical observations
and patient history.
Nucleic Acid Amplification test (NAAT)performed on the
[employer] NOW platform.
Diagnostic Testing:
Physical Exam
-
HEENT: Normocephalic, Anicteric and Moist Mucous Membranes
Cardiovascular: S1/S2 and Regular Rhythm
Respiratory: Clear and Non-Labored Respirations
GI: Soft, Non Distended and Non Tender
Neurology: Awake and Other (nonverbal, opens eyes but does not respond/follow commands)
Skin: Warm, Dry and Good Color
General: Comfortable and Other (NAD)
Assessment
-
Patient is a 79 year old female with history of devastating CVA s/p tPA/craniotomy at [facility], functional quadriplegia with chronic aphasia/nonverbal, paroxysmal A-fib, hypertension zcb-nanyrte-ypmyqokjh diabetes, hypothyroidism, sacral decub ulcer
stage IV seen here at ER for SOB and hypoxemia. On arrival to ER, she was notably hypoxemic (86% on RA) and placed on 4L NC. She was previously trach/PEG, but her trach was reversed some time following her admission. She remains on TFs via PEG
but son notes she still eats somewhat by mouth. Son states, patient had N/V at home, possible aspiration. CXR showing LLL consolidation suspicious for PNA. She also had fever 101.4F, sinus tachycardia, leukocytosis, and lactic acidosis 3.7 on
admission concerning for severe sepsis.
Acute hypoxic respiratory failure
LLL PNA, possible aspiration
N/V at home
Lactic acidosis
Hyperglycemia
Shortness of breath
Leukocytosis, mild
Thrombocytosis
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
Acute seizures, encephalomalacia- diagnosed 06/05/24
Large R ICA ischemic stroke, s/p systemic tPA 01/29/2023
Transferred to [facility] Neuro ICU followed by R open craniectomy 02/21
Status post VDRF, decannulated tracheostomy
Dysphagia status post PEG tube
Sacral pressure wound stage IV
Chronic aphasia and L sided weakness
Acute RUE embolism s/p thrombectomy 01/29/23
Recurrent stroke, now at R MCA territory on CT head 01-31
Right ICA occlusion by MRA 01/29/23
HTN
Hypothyroidism
MDR Citrobacter UTI
PAF
Ambulatory dysfunction
Plan
Hypoxemia noted on arrival, O2 luis angel 86%
She is placed on 4L NC, wean as tolerated
Prior history of trach/vent, s/p decannulation
N/V history at home, CXR with LLL consolidation
Suspect patient has aspiration PNA
She is placed on IV abx
Other imaging reviewed--significant history of trach/PEG, chronic aphasia
She is high risk for aspiration, family still feed at home despite PEG placement
Speech therapy eval
Obtain ABG to evaluate for CO2
PAP if needed
Prior ECHO results are reviewed indicating normal function
CVA history noted, resume home meds
Overall patient has no cognitive capacity for airway clearance
Can try nebs PRN for now
Vest
Discussed care with son at bedside
She is admitted to IMU
We will follow
Diagnostic Data
Chest X-Ray: 08/10/24- Findings suspicious for left basilar/left lower lobe pneumonia.
CT Scan:
HEAD MRI 06/04/24- Large chronic infarcts of the majority of the right cerebral hemisphere, the anterior left frontal lobe and left basal ganglia with cortical laminar necrosis. Peripheral rim of restricted diffusion about the infarct in the right
frontal lobe and anterior paramedian left frontal lobe suggesting acute on chronic infarction.
Echo: 02/19/23- Normal biventricular size and systolic function without regional wall motion abnormality. Left ventricular ejection fraction by Zuluaga's biplane method 55-60% No significant valvular disease. Estimated pulmonary artery pressure of
27 mmHg assuming a right atrial pressure of 3 mmHg. No pericardial effusion In limited views, the interatrial septum appears hypermobile. No definite evidence of shunt by color-flow Doppler No prior study available for comparison Given indication
of stroke could consider transesophageal echocardiogram with bubble study, if clinically indicated
PFT's:
Reports and relevant images were personally reviewed.
Total time spent on this consultation __77__ minutes which includes review of history, physical exam, medications, laboratory data, personal review of imaging, extensive review of outpatient records, discussion with care team and respiratory therapy.
--- NOTE | 2024-08-10 15:25 | CON.ID ---
Consultation
-
Date/Time Consultation Requested: August 102023 1243
Date/Time Consultation Performed: August 10, 2024 1530
Requesting Provider: Dr. Charlie Walton
Performing Provider: Dr. Radha Segura
Reason for Consultation: Sepsis
Chief Complaint / Past History
Chief Complaint
Nausea, vomiting, fever
History of Present Illness
History obtained from son at bedside since patient has aphasia and unable to provide any meaningful history. She is a 79-year-old female with history of CVA, bedbound, aphasia, dyspagia with PEG tube who presented to ED today due respiratory
distress. Per son pt with nausea and vomiting x 3 days. Stool is loose. Son thought perhaps she caught illness from his twin sons who go to daycare. Pt was getting more short of breath with cough. This morning she spiked a fever and therefore sent
to ED. In ED, she was initially hypothermic with T 94.5, then T 101.4. WBC 13.7, 12% bands. Lactic acid 3.7. She was hypoxic. CXR LLL opacity. GI noted that PEG tube has migrated.
Past History
Additional Past Medical History:
A-fib anticoagulated with Eliquis
Hemorrhagic stroke status post craniotomy in January 2023 and right side of skull left open
Chronic aphasia and left-sided weakness
Functional quadriplegia
Status post PEG tube feeding
History of the right upper extremity DVT requiring thrombectomy
Dyslipidemia
Insulin-dependent diabetes mellitus
Hypothyroidism
Anxiety and mood disorder
Chronic sacral decubitus
Shingles
Allergy History:
No Known Allergies Allergy (Verified 08/10/24 08:30)
Medications Reviewed: Yes
Current Antibiotics:
Vanco d3
Zosyn D3
Social History
Tobacco: Non-Smoker
Alcohol: None
Drug: None
Living: With Family
Family History
Family History: Not Pertinent
Review of Systems
Review of Systems
Unable to obtain due to aphasia
Vital Signs
Temp Pulse Resp BP Pulse Ox
99.1 F 86 23 118/52 97
08/10/24 13:00 08/10/24 15:00 08/10/24 15:00 08/10/24 15:00 08/10/24 13:00
Selected Entries
06/11/24
09:26 08/10/24
08:16
Temp 94.5 F L 101.4 F H
Physical Exam
Physical Exam
Constitutional: Chronically Ill
Eyes: No Conjunctival Hemorrhage and Sclera Anicteric
Cardiovascular: Regular Rate and S1/S2
Pulmonary: Rales (Crackles left base)
Gastrointestinal: Soft, Non Tender, Non Distended, Normal Bowel Sounds and Other (PEG now in correct position)
Genito-Urinary: Negative CVA Tenderness
Extremities: Negative Edema
Neurological: Awake and Alert
Lab / Diagnostic Study Results
08/10/24 08:25
08/10/24 09:12
Total Counted 100 08/10/24 08:25
Abs Neuts (Manual) 9.7 10^3/uL (1.4-6.5) H 08/10/24 08:25
Segmented Neutrophils 59 % (42-75) 08/10/24 08:25
Band Neutrophils 12 % (0-3) H 08/10/24 08:25
Lymphocytes (Manual) 15 % (20-51) L 08/10/24 08:25
Eosinophils (Manual) 2 % (0-6) 08/10/24 08:25
Lactic Acid 2.3 mmol/L (0.7-2.0) H 08/10/24 12:11
Microbiology Results
Micro:
08/10/24 08:25 Influenza Types A & B (JENA) - Final
Nasal Swab Negative for Influenza A & B, NAAT
Negative results must be combined with clinical observations
and patient history.
Nucleic Acid Amplification test (NAAT)performed on the
[employer] NOW platform.
08/10/24 08:27 Blood Culture - Pending
Blood/Venous
08/10/24 08:25 Blood Culture - Pending
Blood/Venous
08/10/24 CXR: Findings suspicious for left basilar/left lower lobe pneumonia.
Assessment / Plan
# Aspiration pneumonia due to N/V from malfunctioned PEG tube
# Sepsis with fever, leukocytosis, bandemia due to aspiration PNA
# Hx CVA/dysphagia with PEG
- Narrow vancomycin/Zosyn with cefepime
-Follow blood cx's
- Follow wbc, fever, oxygen status
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
A-fib anticoagulated with Eliquis
Hemorrhagic stroke status post craniotomy in January 2023 and right side of skull left open
Chronic aphasia and left-sided weakness
Functional quadriplegia
Status post PEG tube feeding
History of the right upper extremity DVT requiring thrombectomy
Dyslipidemia
Insulin-dependent diabetes mellitus
Hypothyroidism
Anxiety and mood disorder
Chronic sacral decubitus
Shingles
[2024-08-10 15:47] LABS: B.E. -2.7 mmol/L; HCO3 21.8 mmol/L (21-28); PCO2 36 mmHg (32-35); PO2 127 mmHg (83-108); pH 7.39 (7.35-7.45)
[2024-08-10] MEDS: ATROVENT NEBULES 0.5 MG INH ×2 (16:48→20:04)
[2024-08-10] MEDS: NSS 1000 IV (16:49)
[2024-08-10 18:14] LABS: Glucose - Point of Care 161 mg/dl (70-99)
[2024-08-10] MEDS: NOVOLOG FLEXPEN-LOW RESISTANCE SC (18:19)
[2024-08-10] MEDS: SYMMETREL SYRUP 150 MG TUBE (20:26)
[2024-08-10] MEDS: BETAPACE 80 MG TUBE (20:26)
[2024-08-10] MEDS: TYLENOL 650 MG TUBE (20:27)
[2024-08-10] MEDS: ELIQUIS 5 MG TUBE (20:28)
--- NOTE | 2024-08-10 21:00 | PTCARENOTE ---
Resumed care of pt laying in bed, nonverbal, pt able to briefly nod head at son, but not for this RN., right sided gaze noted. Per son pt able to say a word or two but thats it. Son left, number at bedside. Per chart, pt is a 'functional
Quadriplegic' at baseline. Pt noted to have some movement of right hand with toy in hand, and right foot movement. No other movement noted at this time. Hr In the 70's in NSR on the monitor with PACs. Hx of PAF. Pox 98% on 4LO2 NC. Lungs dec/ course
with occasional non productive cough. Strict NPO maintained per MD order. Hyper bowel, round, obese abd. Peg tube in place, bumper to be kept at 5cm per GI MD. Pt grossly inc of large amount of dark yellow/light brown stool. Kiana care provided.
Stage 4 sacral wound noted, dressing applied, wound consulted. +1 B/L LE edema. Palpable peripheral pulses present. Pale skin. Right forearm int in place infusing NSS@60ml/hr. Pt repositioned. Will continue to monitor.
[2024-08-10] MEDS: MAXIPIME 1000 MG IV (22:54)
[2024-08-10] MEDS: STERILE WATER FOR INJECTION 10 ML IV (22:54)
[2024-08-11] VITALS (56 sets, daily range): BP systolic 70–143; BP diastolic 41–97; BMI 27.7
[2024-08-11 00:29] LABS: Glucose - Point of Care 114 mg/dl (70-99)
[2024-08-11] MEDS: NOVOLOG FLEXPEN-LOW RESISTANCE SC ×4 (00:50→17:46)
--- NOTE | 2024-08-11 03:25 | PTCARENOTE ---
Patient received from the ED. Transferred to and admitted to ICU bed 3359. IMU status. Afebrile, VSS. Patient is cool to touch. Complete cares given, CHG cloth bath. Currently with clean adult diaper. Linen changed and warm blankets donned.
Repositioned every 2 hours. Patient is nonverbal. She does not shake head yes/no to questions asked. Saturating 99-100% on 4L/nc, decreased to 2L/nc. Right lung is clear. Left lung with fine crackles scattered t/o. Abdomen soft with hyperactive
bowel sounds. PEG tube intact, clamped. Pedal pulses palpable but weak. Sacral decub with dressing intact. Labs due this am--Multiple attempts by multiple RNs to obtain labs, unsuccessful.
[2024-08-11] MEDS: SYNTHROID 100 MCG TUBE (05:38)
[2024-08-11] MEDS: STERILE WATER FOR INJECTION 10 ML IV ×2 (05:38→15:33)
[2024-08-11] MEDS: MAXIPIME 1000 MG IV (05:38)
[2024-08-11 06:31] LABS: Glucose - Point of Care 118 mg/dl (70-99)
--- NOTE | 2024-08-11 07:01 | W.PN.HOSP.TC ---
Today's Communication/Plan
-
cont abx as per ID
Vest therapy as per Pulm
Dietary eval for tube feeding recommendations
speech eval
bronchodilators
wean O2 as tolerated
Assessment / Plan
Assessment / Plan
Physical Exam
General: No pallor, cyanosis, or jaundice.
HEENT: Normocephalic atraumatic on nasal cannula supplementation 4L
NECK: Supple. No JVD Carotid Bruits
RESPIRATORY: Diffuse Rhonchi
CVS: S1, S2 sinus tachy. No murmur, rub or gallop.
ABDOMEN: Soft, non-tender. No distension. BS+/normal. G-tube present
EXTREMITIES: No peripheral cyanosis or edema.
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
IMPRESSION:
79 female functional quadriplegia since her stroke a year ago January 2023 right hemispheric with residual left hemiparesis nonverbal dysphagia s/p G-tube, history lytic treatment complicated with need for craniotomy, paroxysmal A-fib, hypertension
ybi-fsmjhrq-ziypmvhqf diabetes, hypothyroidism, sacral decub ulcer, BIBEMS d/t son concern patient short of breath, requiring 4L on ED eval. Per son EMIGDIO Katz, there was an illness running through the family that he believed patient caught resulting
in an episode nausea vomiting. Patient became progressively dyspneic prompting EMS call. Along with 4L requirement, ED eval notable for Fever 101.4 sinus tachycardia, leukocytosis, and lactic acidosis 3.7 concerning for severe sepsis. BP stable.
PLAN:
#Sepsis Aspiration Pneumonia (fever tachycardia Leukocytosis)
IMU admit
once IV Tylenol given in ED
cont prn PO tylenol via G-tube
CXR appreciated left basilar/lower lobe pna
initial Lactic acid 3.7 since improved following IVF bolus
COVID Flu Neg
follow blood cultures
ID eval appreciated Empiric abx vanc zosyn switched to Cefipime
Pulm eval appreciated Vest therapy
speech therapy
aspiration precautions
#Hx Stroke lytic therapy complicated with craniotomy
#paroxysmal afib
#Functional Quadriplegia
#dysphagia s/p G-tube
Meds via tube
Cont Eliquis, digoxin (check dig level), sotalol
con PPI
GI eval appreciated Tube re-positioned with tube check imaging confirming optimum positioning
Dietary eval tube feeding recommendations
#HTN
hold home losartan d/t low normal pressures sepsis concerns.
#DM
recent A1c 6.9
hold home Metformin d/t Lactic Acidosis since improved
Low dose sliding scale Q6
#Hypothyroidism
cont home synthroid
dvt ppx Eliquis
gi ppx PPI
Full Code
Discussed with patient's son Sterling BEAL
I spent a total of 50 minutes with the patient or on the floor. More than 50% of this time involved counseling and coordination of care.
Anticipated Discharge: 24 - 48 hours
Subjective/Interval History
-
Date of Service: August 11, 2024
Nonverbal. Appears otherwise comfortable, no acute distress. Noted weaning down on oxygen supplementation (1.5L compared to earlier 4L).
Objective Data
-
Labs:
Laboratory Results
08/11/24 08/11/24
05:00 05:14
WBC Cancelled Pending
Hgb Cancelled Pending
Hct Cancelled Pending
Plt Count Cancelled Pending
Sodium Cancelled Pending
Potassium Cancelled Pending
Chloride Cancelled Pending
Carbon Dioxide Cancelled Pending
BUN Cancelled Pending
Creatinine Cancelled Pending
Glucose Cancelled Pending
Calcium Cancelled Pending
Vital Signs:
Vital Signs
Temp Pulse Resp BP Pulse Ox
97.7 F 81 28 123/57 99
08/11/24 03:41 08/11/24 06:00 08/11/24 06:00 08/11/24 06:00 08/11/24 04:54
I&O
08/10/24 08/11/24 08/12/24
06:59 06:59 06:59
Intake Total 280 / 280
Balance 280 / 280
--- NOTE | 2024-08-11 07:12 | PTCARENOTE ---
Report given verbally to Desire ferris RN. Questions answered.
[2024-08-11] MEDS: ATROVENT NEBULES 0.5 MG INH ×3 (07:23→19:21)
[2024-08-11 08:45] LABS: Hematocrit 35.1 % (37.0-47.0); Mean Corp Hgb Conc. 31.3 g/dL (33.0-37.0); Mean Corpuscular Hgb 30.2 pg (27.0-31.0); Mean Corpuscular Volume 96.4 fL (81.0-99.0); Red Blood Cell Count 3.64 10^6/uL (4.20-5.40); Red Cell Dist. Width 17.1 % (11.5-14.5); White Blood Cell Count 12.8 10^3/uL (4.8-10.8)
[2024-08-11 08:49] LABS: Blood Urea Nitrogen 23 mg/dl (7-17); Calcium 9.1 mg/dl (8.4-10.2); Carbon Dioxide 22 mmol/L (22-30); Chloride 111 mmol/L (98-107); Digoxin 0.9 ng/ml (0.8-2.0); Estimated Creatinine Clearance 86 ml/min; Glucose 130 mg/dl (70-99); Magnesium 1.8 mg/dl (1.6-2.3); Potassium 4.3 mmol/L (3.5-5.1); Sodium 141 mmol/L (135-145); eGFR > 60.00
--- NOTE | 2024-08-11 08:53 | W.PN.GI.CBS2 ---
Today's Communication / Plan
-
s/p peg migration with repositioning 08/10
tube check stable
this am remains at 5-6 cm-- cont current position- call GI if any further migration
08/10 educated son on need to keep tube at 5 cm
if continued issues with tube migration can try to downsize balloon or add Bead o ring
ok to resume tube feed per RD
will sign off call with any questions or problems
Assessment / Plan
-
Pt is a 79yo with hx CVA, chronic peg, left sided weakness, aphagia, non verbal with need for lytic treatment complicated with need for craniotomy, seizure disorder, PAF, HTN, NIDDM, hypothyroidism, sacral decub with admission with recent GI
illness with nausea, vomiting and diarrhea. On admission there was concern for aspiration PNA. Asked to see fo peg leakage. Per family pt had peg replaced several weeks ago with original tube in place last 2 years. Pt currently maintain on oral
diet with soft foods and and tube feeds. She take [employer] peptide tube feed with 3 cartons daily.
-peg malfunction with migrated peg
-with peg migration concern for SBO with balloon with vomiting and aspiration PNA with sepsis
-leukocytosis /elevated lactate
-tachycardia-improved
-mild anemia
-hx CVA
-prior elevated LFT's now resolved
other med problems:
-HTN
-DM
-hypothyroidism
-PAF
-NIDDM
-sacral decub
PLAN:
s/p peg migration with repositioning 08/10
tube check stable
this am remains at 5-6 cm-- cont current position- call GI if any further migration
08/10 educated son on need to keep tube at 5 cm
if continued issues with tube migration can try to downsize balloon or add Bead o ring
ok to resume tube feed per RD
will sign off call with any questions or problems
Subjective
Subjective
Date of Service: August 11, 2024
NPO, brown loose stools
Objective
Data Reviewed
Laboratory Data:
Laboratory Results
08/11/24 08:19
08/11/24 08:19
Laboratory Results
Magnesium 1.8 mg/dl (1.6-2.3) 08/11/24 08:19
Total Bilirubin 0.6 mg/dl (0.2-1.3) 08/10/24 09:12
AST 21 U/L (14-36) 08/10/24 09:12
ALT 19 U/L (0-35) 08/10/24 09:12
Alkaline Phosphatase 78 U/L (38-126) 08/10/24 09:12
Vital Signs and I&O:
Vital Signs
Temp Pulse Resp BP Pulse Ox
97.4 F 82 29 123/57 100
08/11/24 08:06 08/11/24 07:26 08/11/24 07:26 08/11/24 06:00 08/11/24 07:26
I&O
08/10/24 08/11/24 08/12/24
06:59 06:59 06:59
Intake Total 280 / 280
Balance 280 / 280
Physical Exam
Physical Exam
HEENT: Anicteric and Moist mucous membranes
Cardiology: Normal Sinus Rhythm
Pulmonary: Other (decreased )
GI: Soft, Non Distended, Non Tender and Other (peg stable without redness at 5-6 cm at bumper )
Extremities: No Edema
Neuro: Other (non verbal minimal response )
[2024-08-11] MEDS: BETAPACE 80 MG TUBE ×2 (09:01→20:57)
[2024-08-11] MEDS: NSS 1000 IV ×2 (09:02→21:44)
[2024-08-11] MEDS: BACTROBAN 2% OINTMENT 1 APPLIC TOPICAL (09:02)
[2024-08-11] MEDS: ELIQUIS 5 MG TUBE ×2 (09:04→20:25)
[2024-08-11] MEDS: TYLENOL 650 MG TUBE ×2 (09:04→20:25)
[2024-08-11] MEDS: THERAGRAN 1 TABLET TUBE (09:05)
--- NOTE | 2024-08-11 09:57 | WOUNDNOTE ---
SACRUM (with photo flash)(to bone)
--- NOTE | 2024-08-11 09:58 | WOUNDNOTE ---
SACRUM (to bone)
--- NOTE | 2024-08-11 09:58 | WOUNDNOTE ---
[facility] RN note: Patient admitted with sepsis, aspiration pneumonia.
See H&P for complete history.
PMH: functional quadriplegic, CVA 01/2023, L hemiparesis, non verbal, craniotomy, a fib (Eliquis), HTN, NIDDM, sacral pressure injury stage 4, feeding tube.
Wound Location and type/assessment: Patient admitted with: stage 4 sacral pressure injury to bone, pink with yellow fibrin tissue. Blanchable mild red heels.
Appetite: NPO. Has feeding tube.
Pressure redistribution devices in place: Centrea Max air bed. Patient immobile.
Plan: Patient incontinent of urine and stool. Sacral dressing changed after becca care given. Patient turned to L semi side lying position with help from TRIXIE Phipps. Heels off bed with pillow. Protective foam applied to heels. TRIXIE Phipps to switch o2
tubing to soft type or add pads to current NC.
Will confirm orders with Dr. Walton and discussed with TRIXIE Phipps.
Care plan to be updated and will follow as needed.
--- NOTE | 2024-08-11 10:29 | PTCARENOTE ---
assumed care at 0700. pt in bed on 2L of o2 NSS infusing via RT FA at 60/hr
--- NOTE | 2024-08-11 11:10 | PTOTSP ---
Speech Language Pathology
Pt seen for clinical bedside swallow evaluation. Pt has PEG, but per family report, eats 10% of nutrition via mouth. Unsure of diet level or whether this was a recommendation from an VENEER JOINER in the past.
P.O. trials of thin water provided. Provided via pipetted straw, and pt actively accepted this. However, absent swallow noted despite max cueing including laryngeal massage and verbal cueing. When presented straw to lips, pt opened mouth with
anterior spillage of previously provided liquid. Oral suctioning completed. Further P.O. trials deferred.
Recommend:
(1) Strict NPO
(2) Oral care 4x/day with suctioning as needed
(3) Non-oral meds
(4) Hold on Aspiration Risk Hydration Protocol (ARHP) given absent swallow
(5) VENEER JOINER to continue to follow
--- NOTE | 2024-08-11 11:15 | PTCARENOTE ---
wound care done by wound care nurse. pt currently on proper air mattress. HOB elevated PEG tube at 4 cm auscultated proper placement. pt repositioned prep via pillows and air cushion HOB elevated
[2024-08-11] MEDS: PREVACID 15 MG TUBE (11:28)
[2024-08-11] MEDS: SYMMETREL SYRUP 150 MG TUBE ×2 (11:29→20:25)
[2024-08-11] MEDS: LANOXIN 125 MCG TUBE (11:30)
[2024-08-11 12:01] LABS: Glucose - Point of Care 149 mg/dl (70-99)
--- NOTE | 2024-08-11 13:28 | W.PN.ID1 ---
Date of Service
Date of Service: August 11, 2024
Today's Communication
Transition cefepime to Augmentin 500mg tube bid (suspension) through .
Assessment / Plan
# Aspiration pneumonia due to N/V from malfunctioned PEG tube,, improving
# s/p Sepsis with fever, leukocytosis, bandemia due to aspiration PNA
# Hx CVA/dysphagia with PEG
-Follow blood cx's neg to date
- Off oxygen
- Leukocytosis trending down
-Transition cefepime to Augmentin 500mg tube bid (suspension) through .
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
A-fib anticoagulated with Eliquis
Hemorrhagic stroke status post craniotomy in January 2023 and right side of skull left open
Chronic aphasia and left-sided weakness
Functional quadriplegia
Status post PEG tube feeding
History of the right upper extremity DVT requiring thrombectomy
Dyslipidemia
Insulin-dependent diabetes mellitus
Hypothyroidism
Anxiety and mood disorder
Chronic sacral decubitus
Shingles
Chief Complaint
-: Pneumonia
Subjective / Review of Systems
Son at bedside. Pt is comfortable. No further cough. She is off oxygen.
Vital Signs / Physical Exam
Vital Signs
Vital Signs
Temp Pulse Resp BP Pulse Ox
97.7 F 71 28 113/54 93
08/11/24 11:15 08/11/24 11:30 08/11/24 11:15 08/11/24 11:00 08/11/24 11:15
Physical Exam
Constitutional: No Acute Distress and Comfortable
Cardiovascular: Regular Rate and S1/S2
Pulmonary: Rales (left base)
Gastrointestinal: Soft, Non Tender, Non Distended and Normal Bowel Sounds
Extremities: Negative Edema
Objective Data
Lab Data
Lab Results
08/11/24 08:19
08/11/24 08:19
Estimated Creat Clear 86 ml/min 08/11/24 08:19
Lactic Acid 2.3 mmol/L (0.7-2.0) H 08/10/24 12:11
Total Bilirubin 0.6 mg/dl (0.2-1.3) 08/10/24 09:12
AST 21 U/L (14-36) 08/10/24 09:12
ALT 19 U/L (0-35) 08/10/24 09:12
Alkaline Phosphatase 78 U/L (38-126) 08/10/24 09:12
Most recent labs reviewed.
Micro Results:
08/11/24 10:14 MRSA Screen - Pending
Nose
08/10/24 08:27 Blood Culture - Preliminary
Blood/Venous No Growth in 24 hours- Final report to follow
08/10/24 08:25 Blood Culture - Preliminary
Blood/Venous No Growth in 24 hours- Final report to follow
08/10/24 08:25 Influenza Types A & B (JENA) - Final
Nasal Swab Negative for Influenza A & B, NAAT
Negative results must be combined with clinical observations
and patient history.
Nucleic Acid Amplification test (NAAT)performed on the
[employer] platform.
08/10/24 CXR: Findings suspicious for left basilar/left lower lobe pneumonia.
--- NOTE | 2024-08-11 13:28 | W.PN.PUL3 ---
Today's Communication / Plan
-
Continue secretion clearance interventions
Continue antibiotics
Follow culture
Aspiration precautions
Assessment
-
Patient is a 79 year old female with history of devastating CVA s/p tPA/craniotomy at [facility], functional quadriplegia with chronic aphasia/nonverbal, paroxysmal A-fib, hypertension lui-[id number]-fyfacvvxs diabetes, hypothyroidism, sacral decub ulcer
stage IV seen here at ER for SOB and hypoxemia. On arrival to ER, she was notably hypoxemic (86% on RA) and placed on 4L NC. She was previously trach/PEG, but her trach was reversed some time following her admission. She remains on TFs via PEG
but son notes she still eats somewhat by mouth. Son states, patient had N/V at home, possible aspiration. CXR showing LLL consolidation suspicious for PNA. She also had fever 101.4F, sinus tachycardia, leukocytosis, and lactic acidosis 3.7 on
admission concerning for severe sepsis.
Acute hypoxic respiratory failure
LLL PNA, possible aspiration
N/V at home
Lactic acidosis
Hyperglycemia
Shortness of breath
Leukocytosis, mild
Thrombocytosis
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
Acute seizures, encephalomalacia- diagnosed 06/05/24
Large R ICA ischemic stroke, s/p systemic tPA 01/29/2023
Transferred to [facility] Neuro ICU followed by R open craniectomy 02/21
Status post VDRF, decannulated tracheostomy
Dysphagia status post PEG tube
Sacral pressure wound stage IV
Chronic aphasia and L sided weakness
Acute RUE embolism s/p thrombectomy 01/29/23
Recurrent stroke, now at R MCA territory on CT head 01-31
Right ICA occlusion by MRA 01/29/23
HTN
Hypothyroidism
MDR Citrobacter UTI
PAF
Ambulatory dysfunction
Plan
Hypoxemia noted on arrival, O2 luis angel 86%-continue oxygen supplementation to maintain pulse ox above 90%.
Continue 4L NC, wean as tolerated
Prior history of trach/vent, s/p decannulation
ABG without hypercapnia.
N/V history at home, CXR with LLL consolidation
Suspect patient has aspiration PNA
Fever curve and leukocytosis improving 08/11/2024
Continue antibiotic therapy,
follow cultures-so far negative.
-
She is high risk for aspiration, family still feed at home despite PEG placement
Speech therapy eval ongoing.
Strict n.p.o. for now
Overall patient has no cognitive capacity for airway clearance
Continue nebulizers for secretion clearance.
Patient has poor cough effort
Vest as able.
Discussed care with son at bedside
She is admitted to IMU
-
Pulmonary will continue to follow
Diagnostic Data
Chest X-Ray: 08/10/24- Findings suspicious for left basilar/left lower lobe pneumonia.
CT Scan:
HEAD MRI 06/04/24- Large chronic infarcts of the majority of the right cerebral hemisphere, the anterior left frontal lobe and left basal ganglia with cortical laminar necrosis. Peripheral rim of restricted diffusion about the infarct in the right
frontal lobe and anterior paramedian left frontal lobe suggesting acute on chronic infarction.
Echo: 02/19/23- Normal biventricular size and systolic function without regional wall motion abnormality. Left ventricular ejection fraction by Zuluaga's biplane method 55-60% No significant valvular disease. Estimated pulmonary artery pressure of
27 mmHg assuming a right atrial pressure of 3 mmHg. No pericardial effusion In limited views, the interatrial septum appears hypermobile. No definite evidence of shunt by color-flow Doppler No prior study available for comparison Given indication
of stroke could consider transesophageal echocardiogram with bubble study, if clinically indicated
PFT's:
Reports and relevant images were personally reviewed.
Subjective Data
-
Date of Service:
Date of Service: August 11, 2024
Chief Complaint: Pulmonary Follow Up (Pneumonia)
Subjective:
No new events overnight
Improved fever curve
Review of Systems
General: Other (Nonverbal at baseline)
Objective Data
Data Reviewed
Vital Signs / I&O / Oxygen:
Vital Signs
Temp Pulse Resp BP Pulse Ox
97.7 F 71 28 113/54 93
08/11/24 11:15 08/11/24 11:30 08/11/24 11:15 08/11/24 11:00 08/11/24 11:15
Intake and Output
08/10/24 08/11/24 08/12/24
06:59 06:59 06:59
Intake Total 280 / 340 300 / 300
Balance 280 / 340 300 / 300
SaO2 93
Nasal Cannula flow liters per 0
minute
Physical Exam
General: Comfortable
HEENT: Normocephalic
Cardiovascular: S1-S2
Respiratory: Non-Labored Respirations
GI: Soft and Non Distended
Neurology: Awake and Other (Nonverbal)
Labs/Micro/Reports
Lab Data
08/11/24 08:19
08/11/24 08:19
Laboratory Results
08/10/24
15:40
pH 7.39
pCO2 36 H
pO2 127 H
HCO3 21.8
O2 Delivery Level
Microbiology
08/10/24 08:27 Blood/Venous Blood Culture - Preliminary
No Growth in 24 hours- Final report to follow
08/10/24 08:25 Blood/Venous Blood Culture - Preliminary
No Growth in 24 hours- Final report to follow
08/10/24 08:25 Nasal Swab Influenza Types A & B (JENA) - Final
Negative for Influenza A & B, NAAT
Negative results must be combined with clinical observations
and patient history.
Nucleic Acid Amplification test (NAAT)performed on the
[employer] platform.
[2024-08-11] MEDS: NSS 500 IV (14:00)
--- NOTE | 2024-08-11 14:20 | CM ---
CM following re: discharge planning.
Discussed in Rounds, reviewed pt's chart, met with pt and pt's son Sterling at bedside.
Pt is a 79 year old female, admitted with primary dx of Sepsis Aspiration Pneumonia
per son, pt lives alone in a condo, 2 step to enter, has 2 supportive sons and receives 24/7 caregiver services under waiver program provided by [facility]. Per son, pt is bed bound, requires total care. Per son, pt will return v]back home
with resumptions of [facility] 24/7 caregiver services, [facility] services and family support.
PCP: Myriam Paul
Pharmacy: [facility].
D/C plan: return back home with resumptions of 24/7 caregiver services, [facility] services and family support.
CM will follow with discharge plan updates as hospitalization progresses
--- NOTE | 2024-08-11 14:53 | CON.CAR ---
Addendum entered and electronically signed by Bala Dallas MD 08/11/24 15:58:
I saw and examined the patient.
The Statistician Mathematical's note was reviewed and I agree with the note.
Comment: Briefly, 79-year-old woman past medical history of CVA complicated by paraplegia with trach/PEG in place and history of atrial fibrillation on digoxin and sotalol who presents with suspected aspiration pneumonia
While here she developed atrial fibrillation with rapid ventricular response this afternoon
For this she received IV Lopressor with some improvement in her heart rates
Ideally heart rate goal would be less than 110 bpm however in the setting of sepsis could allow higher heart rates in the short-term
Would continue digoxin
Increase sotalol dose to 120 mg twice daily
Could try low-dose IV Cardizem for better heart rate control if needed
Continue Eliquis for cardioembolic prophylaxis
Rest per Mackenzie Rouse
Original Note:
Consultation
Consultation Request
Date/Time Consultation Performed: 08/11/24
Requesting Provider: Dr. Walton
Performing Provider: Mackenzie Rouse PA-C for Dr. Dallas
Reason for Consultation: afib
Medical History
-
Chief Complaint: breathing issues
History of Present Illness:
Patient is a 79 yo F who was admitted at 01/29-01/31/23 for acute CVA. She also had evidence of acute embolic event to RUE and underwent thrombectomy 01/29. She received tPA. Cardiology was consulted due to multiple embolic events, however while
admitted to , no arrhythmias were noted. On 01/31 she reportedly became less responsive and follow up CT showed evidence of new stroke, as well as cytotoxic edema. She was transferred to neuro ICU at [facility]. Reportedly while there patient had a
craniotomy and underwent trach/PEG placement. Trach now removed. While there it appears she was diagnosed with afib and was started on eliquis and sotalol 40mg BID. This was uptitrated to 80mg BID and digoxin was added during 03/2023 admission to .
Since then son reports has been relatively stable from cardiac standpoint. He reports she had several days of nausea and vomiting, then noted breathing issues yesterday resulting in bringing her to the ER. Hypoxic on arrival to ER. Was found to have
L sided PNA on CXR. covid/flu negative. suspected aspiration as there had been an issue with her PEG tube. Today around 13:30 went into afib with RVR. Cardiology consulted for evaluation.
PMH:
Right hemispheric CVA, extensive requiring transfer to [facility] neuro ICU followed by craniectomy�01/31/23-03/07/23
Status post VDRF, decannulated tracheostomy.
Dysphagia status post PEG tube
Right upper extremity embolism requiring urgent embolectomy 01/29/23
Functional paraplegia, bedbound status
Nonverbal
Paroxysmal atrial fibrillation
Chronic sotalol and digoxin therapy
Anticoagulation with Eliquis
Essential hypertension
Hypothyroidism
Prediabetes/hemoglobin A1c 6.2 01/2023
Sacral pressure wound
Past Medical History
Past Medical History: Other (in HPI)
Social History
Tobacco: Non-Smoker
Alcohol: None
Living: With Family
Family History
Family History: Reviewed & Not Pertinent and Unable to Obtain
Allergies / Home Medications
Allergy/AdvReac Type Severity Reaction Status Date / Time
No Known Allergies Allergy Verified 08/10/24 08:30
�Medication �Instructions �Recorded �Confirmed �Type
amantadine HCl 50 mg/5 mL oral 150 mg (15 mL) feeding tube BID 06/25/23 08/10/24 Rx
solution #1,800 mL
apixaban 5 mg tablet (Eliquis) 5 mg feeding tube Q12 #60 tabs 06/25/23 08/10/24 Rx
digoxin 125 mcg (0.125 mg) tablet 125 mcg feeding tube DAILY #30 tabs 06/25/23 08/10/24 Rx
levothyroxine 100 mcg tablet 100 mcg feeding tube DAILY@0600 06/25/23 08/10/24 Rx
#30 tabs
acetaminophen 325 mg tablet 650 mg feeding tube BID Pain 06/03/24 08/10/24 History
doxycycline hyclate 100 mg capsule 100 mg feeding tube BID Infection 06/03/24 08/10/24 History
lansoprazole 15 mg capsule,delayed 15 mg feeding tube DAILY 06/03/24 08/10/24 History
release Gastrointestinal Issue
losartan 25 mg tablet 25 mg feeding tube DAILY Blood 06/03/24 08/10/24 History
Pressure
metformin 500 mg tablet 500 mg feeding tube DAILY Diabetes 06/03/24 08/10/24 History
mupirocin 2 % topical ointment 1 applic topical DAILY bed sore 06/03/24 08/10/24 History
sotalol 80 mg tablet 80 mg feeding tube BID Arrhythmia 06/03/24 08/10/24 History
therapeutic multivitamin 1 tab feeding tube DAILY Supplement 06/03/24 08/10/24 History
urea 15 gram oral powder packet 1 packet PO Q48H SIADH 06/03/24 08/10/24 History
(Ure-Na)
ondansetron HCl 4 mg tablet 4 mg feeding tube Q6HPRN PRN nausea 08/10/24 08/10/24 History
Review of Systems
-
Unable to obtain full review of systems at this time due to: Patient Non Verbal
History Source: Family
All other systems: Negative unless noted
Physical Exam
Vital Signs
Temp Pulse Resp BP Pulse Ox
97.7 F 71 28 113/54 93
08/11/24 11:15 08/11/24 11:30 08/11/24 11:15 08/11/24 11:00 08/11/24 11:15
Lab Results
08/11/24 08:19
08/11/24 08:19
Sjx-T-Rsdwehvbhti Pept 1870 pg/ml 08/10/24 08:25
Physical Exam
General: No Apparent Distress and Comfortable
HEENT: Normocephalic, Anicteric and Moist Mucous Membranes
Respiratory: Rhonchi (on L) and Non Labored Respirations
Cardiac: S1/S2 and Irregular Rhythm
Musculoskeletal: No Clubbing, No Cyanosis and No Edema
Skin: Warm and Dry
Neuro: Awake
Impression / Plan
-
Primary Block Feeder: none in outpatient setting
Assessment:
Presentation with sepsis
N/V, PEG tube migration with repositioning 08/10/2024
L PNA, suspected secondary to aspiration as result of above
Right hemispheric CVA, extensive requiring transfer to [facility] neuro ICU followed by craniectomy�01/31/23-03/07/23
Status post VDRF, decannulated tracheostomy.
Dysphagia status post PEG tube
Right upper extremity embolism requiring urgent embolectomy 01/29/23
Functional paraplegia, bedbound status
Nonverbal
Paroxysmal atrial fibrillation, now with RVR
Chronic sotalol and digoxin therapy
Anticoagulation with Eliquis
Essential hypertension
Hypothyroidism
Prediabetes/hemoglobin A1c 6.2 01/2023
Sacral pressure wound
ECHO 01/30/23: EF 55 to 60%, no significant valvular disease, PAP 20 mmHg, no pericardial effusion, no definite evidence of shunt
Plan:
-Patient presented with breathing issues/hypoxia. Found to have left-sided pneumonia suspected secondary to aspiration due to recent nausea/vomiting and PEG tube migration. COVID/flu negative. Status post PEG tube repositioning 08/10/2024
-Today around 1330 patient noted to go into atrial fibrillation with RVR. Was given dose of IV Lopressor x 1 without significant improvement
-Will plan to increase sotalol dose to 120 mg every 12 hours. QTc stable by EKG 08/10 and 08/11. Will repeat EKG after first 4 increased sotalol doses.
-If remains rapid overnight, could consider placing on low-dose IV Dilt gtt.
-Continue current dose of digoxin. Dig level 0.9 on admission. Cr stable at 0.5
-Continue Eliquis
-Holding outpatient losartan due to relative hypotension
-Agree with giving gentle fluid hydration due to concerns for dehydration with recent GI losses. Follow volume status
-Last echo from 01/2023 with results as above
-Discussed with patient's son at bedside. Discussed with nursing
Data Reviewed
-
EKG: Tracing Personally Visualized and interpreted
Radiology: Report Reviewed by me
Medical Tests (Nuc Med, Echo etc): Report Reviewed by me
Labs: Labs Reviewed by me
Old Records: Reviewed
[2024-08-11] MEDS: ATROVENT NEBULES INH (15:05)
[2024-08-11] MEDS: URE-NA 1 GRAMS TUBE (15:31)
[2024-08-11] MEDS: AUGMENTIN 250 MG/5 ML 500 MG TUBE ×2 (15:32→21:04)
[2024-08-11] MEDS: FLUSH (NSS) 1 FLUSH IV (15:33)
--- NOTE | 2024-08-11 15:34 | PTCARENOTE ---
14:00 cardiac Rhythm changed from SR to AFib 153; EKG confirmed Afib. Dr Walton notified. per order Metoprolol 5mg IV adm x 1 NSS 500 bolus adm NSS increased from 60 to 100//hr. Cardiology consult in place . Sotalol increased from 80 to 120 mg
improvement post metoprolol noted. Currently Afib 109 with occasional 1023; BP 94/50 MAP 61;
Will start Feeding tube per current order
[2024-08-11 17:38] LABS: Glucose - Point of Care 132 mg/dl (70-99)
--- NOTE | 2024-08-11 19:12 | PTCARENOTE ---
pt currently in Afib 108-130's BP 101/53 Sotalol increased to 120 mg. 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 Daughter in [facility] not comfortable with new dosage too high. she
concerns that pt in Afib due to Antibiotics that she currently on. Message to dr Royal was send with request to call pt's daughter in [facility]
per dr Walton IV fluids NSS D/c
--- NOTE | 2024-08-11 20:23 | W.PN.UPDATE ---
Addendum entered and electronically signed by OBDULIO Mchugh 08/12/24 00:04:
Patient w/hypotension, BP 82/48, map 60, HR 90-120's. NSS 250 mls bolus x 1 given.
Original Note:
Update Note
Progress Note Update
Patient's Sotalol dose was increased during the day from 80 mg to 120 mg for afib with RVR, HR in 140's. Family is refusing increased dose and asking that only Sotalol 80 mg be given tonight, HR now in the low 100's. Order placed for Sotalol 80 mg
tube x 1 for tonight and continued at 80 mg BID tomorrow per Dr. Gaines. Cardiology will review with family new Sotalol 120 mg tube BID dosing 08/12/24. Nursing did provide family with education.
[2024-08-11] MEDS: DAKIN'S SOLUTION 0.125% 1/4 STRENGTH 473 ML TOPICAL (20:40)
--- NOTE | 2024-08-11 22:27 | PTCARENOTE ---
Handoff report received from off going RN. Patient received in bed on 2L/O2 nc. Pt's nonverbal. Pupils are +3 and reactive. The patient moves her right arm, but not on command. The patient however opened her mouth for mouth care when asked. Pt's son
stated that the pt following commands waxes and wanes dependant on the pt's mood. Plan of care for the shift reviewed with the patient and her son. Afib on the monitor with HR fluctuating between 110-140s. Sotalol 80 mg administered with night time
medications. Weak but palpable pulses. Diminished breath sounds. Spo2 @ at 100%. Left abdomen peg tube is intact with pt's home tube feed at 20 ml/hr. IV team at the bedside. Pt's incontinent of urine and stool. Patient cleansed and linens changed.
Purewick placed. Repositioning continued. Call peoples is within reach. Safety measures maintained.
[2024-08-11 23:16] LABS: Glucose - Point of Care 129 mg/dl (70-99)
[2024-08-11] MEDS: STERILE WATER FOR INJECTION IV (23:29)
[2024-08-12] VITALS (28 sets, daily range): BP systolic 76–138; BP diastolic 50–100; BMI 28.8
[2024-08-12] MEDS: NOVOLOG FLEXPEN-LOW RESISTANCE SC (00:07)
--- NOTE | 2024-08-12 00:22 | PTCARENOTE ---
Patient reassessed. Remains on AFib RVR with HR fluctuating between 110-140s and not sustaining. Pt's 2300 BP 77/48 (57) and repeat is 86/57 (65). Patricia Bello CRNP made aware ad at the bedside. Normal saline 250 bolus ordered. Lactic acid lab
drawn and sent. Patient remained unchanged. Turns and repositioning continued.
[2024-08-12] MEDS: NSS 250 IV (00:30)
[2024-08-12 00:35] LABS: Lactic Acid 1.4 mmol/L (0.7-2.0)
--- NOTE | 2024-08-12 04:10 | PTCARENOTE ---
assumed care of pt, NS 100ml/hr, labs drawn from midline, no changes from previous assessment, otherwise refer to documentation.
[2024-08-12 04:20] LABS: Hematocrit 29.4 % (37.0-47.0); Hemoglobin 9.2 g/dL (12.0-16.0); Mean Corp Hgb Conc. 31.3 g/dL (33.0-37.0); Mean Corpuscular Hgb 30.4 pg (27.0-31.0); Mean Platelet Volume 9.4 fL (7.4-10.4); Platelet Count 302 10^3/uL (130-400); Red Blood Cell Count 3.03 10^6/uL (4.20-5.40); Red Cell Dist. Width 17.1 % (11.5-14.5); White Blood Cell Count 11.9 10^3/uL (4.8-10.8)
[2024-08-12 04:36] LABS: Blood Urea Nitrogen 18 mg/dl (7-17); Calcium 8.5 mg/dl (8.4-10.2); Carbon Dioxide 21 mmol/L (22-30); Chloride 114 mmol/L (98-107); Estimated Creatinine Clearance 86 ml/min; Glucose 142 mg/dl (70-99); Magnesium 1.7 mg/dl (1.6-2.3); Sodium 141 mmol/L (135-145); eGFR > 60.00
[2024-08-12] MEDS: STERILE WATER FOR INJECTION IV (05:06)
[2024-08-12] MEDS: SYNTHROID 100 MCG TUBE (05:06)
[2024-08-12] MEDS: NOVOLOG FLEXPEN-LOW RESISTANCE 1 UNITS SC ×3 (05:31→17:31)
[2024-08-12 05:36] LABS: Glucose - Point of Care 154 mg/dl (70-99)
[2024-08-12] MEDS: LOPRESSOR 5 MG IV (06:46)
--- NOTE | 2024-08-12 07:07 | W.PN.HOSP.TC ---
Today's Communication/Plan
-
cont abx as per ID
Vest therapy
tube feeds
wean O2 as tolerated
Heart rate control as per Cardio
IVF support, bolus prn MAP<65
Assessment / Plan
Assessment / Plan
Physical Exam
General: No pallor, cyanosis, or jaundice.
HEENT: Normocephalic atraumatic on nasal cannula supplementation 2L
NECK: Supple. No JVD Carotid Bruits
RESPIRATORY: Clear to auscultation
CVS: S1, S2 sinus tachy. No murmur, rub or gallop.
ABDOMEN: Soft, non-tender. No distension. BS+/normal. G-tube present
EXTREMITIES: No peripheral cyanosis or edema.
SECOND TIME WORKER: Awake responsive to physical and verbal stimuli but nonverbal, left sided hemiparesis, some RUE RLE mobility noted though unable to lift from bed.
IMPRESSION:
79 female functional quadriplegia since her stroke a year ago January 2023 right hemispheric with residual left hemiparesis nonverbal dysphagia s/p G-tube, history lytic treatment complicated with need for craniotomy, paroxysmal A-fib, hypertension
eqn-gkfhdao-umadtwtrb diabetes, hypothyroidism, sacral decub ulcer, BIBEMS d/t son concern patient short of breath, requiring 4L on ED eval. Per son EMIGDIO Katz, there was an illness running through the family that he believed patient caught resulting
in an episode nausea vomiting. Patient became progressively dyspneic prompting EMS call. Along with 4L requirement, ED eval notable for Fever 101.4 sinus tachycardia, leukocytosis, and lactic acidosis 3.7 concerning for severe sepsis. BP stable.
PLAN:
#Sepsis Aspiration Pneumonia (fever tachycardia Leukocytosis)
#Acute Hypoxic Respiratory Failure
IMU admit
once IV Tylenol given in ED
cont prn PO tylenol via G-tube
CXR appreciated left basilar/lower lobe pna
initial Lactic acid 3.7 since improved following IVF bolus
COVID Flu Neg
follow blood cultures NGTD
ID eval appreciated Empiric abx vanc zosyn switched to Cefipime then further de-escalated to Augmentin
Pulm eval appreciated Vest therapy
speech therapy appreciated strict NPO
aspiration precautions
Wean O2 supplementation as tolerated
Duoneb prn, briefly treated with scheduled Duonebs since discontinued
#paroxysmal afib
#Developed Afib RVR later in admission
Cont Eliquis, digoxin (dig level appreciated wnl), sotalol
cont prn IV lopressor HR>120 persistent
ECHO appreciated preserve EF 55-60% no significant valve abn's
Cardio eval appreciated
-low dose prn PO Cardizem added
-Will have to accept higher heart rates in the short-term while treating sepsis/pneumonia
#Hx Stroke lytic therapy complicated with craniotomy
#Functional Quadriplegia
#dysphagia s/p G-tube
Meds via tube
con PPI
GI eval appreciated Tube re-positioned with tube check imaging confirmed optimum position
Dietary eval tube feeding recommendations appreciated
#HTN
hold home losartan d/t low normal pressures sepsis concerns.
#intermittent Hypotension likely d/t hypovolemia exacerbated by diarrhea
cont IVF support
bolus prn MAP<65
stool studies appreciated largely neg including Cdiff and Norovirus, rest of studies pending
#DM
recent A1c 6.9
hold home Metformin d/t Lactic Acidosis since improved
Low dose sliding scale Q6
#Hypothyroidism
cont home synthroid
dvt ppx Eliquis
gi ppx PPI
Full Code
Discussed with patient's son Sterling BEAL
I spent a total of 50 minutes with the patient or on the floor. More than 50% of this time involved counseling and coordination of care.
Anticipated Discharge: 24 - 48 hours
Subjective/Interval History
-
Date of Service: August 12, 2024
Respiratory status appears improved, weaned down to 2L. Appears relatively comfortable. Remains nonverbal, baseline. Remains in afib mild persistent tachycardia.
Objective Data
-
Labs:
Laboratory Results
08/12/24
03:54
WBC 11.9 H
Hgb 9.2 L
Hct 29.4 L
Plt Count 302 D
Sodium 141
Potassium 4.0
Chloride 114 H
Carbon Dioxide 21 L
BUN 18 H
Creatinine 0.4 L
Glucose 142 H
Calcium 8.5
Vital Signs:
Vital Signs
Temp Pulse Resp BP Pulse Ox
98.3 F 141 34 119/62 98
08/12/24 03:33 08/12/24 06:46 08/12/24 06:00 08/12/24 06:46 08/12/24 05:00
I&O
08/11/24 08/12/24 08/13/24
06:59 06:59 06:59
Intake Total 280 / 340 1984
Balance 280 / 340 1984
[2024-08-12] MEDS: ATROVENT NEBULES 0.5 MG INH ×3 (07:14→15:04)
[2024-08-12] MEDS: NSS 1000 IV ×2 (07:57→22:54)
[2024-08-12] MEDS: AUGMENTIN 250 MG/5 ML 500 MG TUBE ×2 (07:57→20:18)
[2024-08-12] MEDS: SYMMETREL SYRUP 150 MG TUBE ×2 (07:57→20:18)
[2024-08-12] MEDS: DAKIN'S SOLUTION 0.125% 1/4 STRENGTH 473 ML TOPICAL ×2 (07:58→20:19)
[2024-08-12] MEDS: ELIQUIS 5 MG TUBE ×2 (07:58→20:18)
[2024-08-12] MEDS: PREVACID 15 MG TUBE (07:58)
[2024-08-12] MEDS: TYLENOL 650 MG TUBE ×2 (07:58→20:19)
[2024-08-12] MEDS: BACTROBAN 2% OINTMENT 1 APPLIC TOPICAL (07:58)
[2024-08-12] MEDS: THERAGRAN 1 TABLET TUBE (07:58)
[2024-08-12] MEDS: BETAPACE 80 MG TUBE ×2 (08:26→20:19)
[2024-08-12] MEDS: NSS 500 IV (09:50)
--- NOTE | 2024-08-12 10:23 | PTCARENOTE ---
pt opens eyes to name. able to follow some simple commands. non verbal. ivf running as ordered. pt having liquid stool. inc of urine. afib seen on monitor. 140 rate max. made aware. peg tube placement checked and flushed. tube feeding
running as ordered. rate increased to 40. spoke twice to pt ger about her condition and medications ordered.
--- NOTE | 2024-08-12 10:52 | W.PN.ID1 ---
Date of Service
Date of Service: August 12, 2024
Today's Communication
Continue Augmentin 500mg tube bid (suspension) through 08/15/24.
Assessment / Plan
# Aspiration pneumonia due to N/V from malfunctioned PEG tube,, improving
# s/p Sepsis with fever, leukocytosis, bandemia due to aspiration PNA
# Hx CVA/dysphagia with PEG
-blood cx's neg to date
- Off oxygen
- Leukocytosis trending down
-Continue Augmentin 500mg tube bid (suspension) through 08/15/24.
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
A-fib anticoagulated with Eliquis
Hemorrhagic stroke status post craniotomy in January 2023 and right side of skull left open
Chronic aphasia and left-sided weakness
Functional quadriplegia
Status post PEG tube feeding
History of the right upper extremity DVT requiring thrombectomy
Dyslipidemia
Insulin-dependent diabetes mellitus
Hypothyroidism
Anxiety and mood disorder
Chronic sacral decubitus
Shingles
Chief Complaint
-: Pneumonia
Subjective / Review of Systems
Resting comfortably
Vital Signs / Physical Exam
Vital Signs
Vital Signs
Temp Pulse Resp BP Pulse Ox
98.2 F 137 30 104/78 97
08/12/24 08:00 08/12/24 10:00 08/12/24 10:00 08/12/24 10:00 08/12/24 07:14
Physical Exam
Constitutional: No Acute Distress and Comfortable
Pulmonary: Clear (anteriorly)
Gastrointestinal: Soft, Non Tender and Non Distended
Extremities: Negative Edema
Psychological: Calm
Objective Data
Lab Data
Lab Results
08/12/24 03:54
08/12/24 03:54
Estimated Creat Clear 86 ml/min 08/12/24 03:54
Lactic Acid Cancelled 08/12/24 06:15
Total Bilirubin 0.6 mg/dl (0.2-1.3) 08/10/24 09:12
AST 21 U/L (14-36) 08/10/24 09:12
ALT 19 U/L (0-35) 08/10/24 09:12
Alkaline Phosphatase 78 U/L (38-126) 08/10/24 09:12
Most recent labs reviewed.
Micro Results:
08/10/24 08:27 Blood Culture - Preliminary
Blood/Venous No Growth in 48 hours- Final report to follow
08/10/24 08:25 Blood Culture - Preliminary
Blood/Venous No Growth in 48 hours- Final report to follow
08/11/24 10:14 MRSA Screen - Pending
Nose
08/10/24 08:25 Influenza Types A & B (JENA) - Final
Nasal Swab Negative for Influenza A & B, NAAT
Negative results must be combined with clinical observations
and patient history.
Nucleic Acid Amplification test (NAAT)performed on the
[employer] platform.
08/10/24 CXR: Findings suspicious for left basilar/left lower lobe pneumonia.
--- NOTE | 2024-08-12 11:05 | W.PN.CARDCBS ---
Today's Communication / Plan
-
Cont home dose of sotalol and digoxin
Add low-dose p.o. diltiazem with hold parameters
Will have to except higher heart rates in the short-term while treating sepsis/pneumonia
Impression / Plan
-
Primary Carcass Splitter: none in outpatient setting
Assessment:
Presentation with sepsis
N/V, PEG tube migration with repositioning 08/10/2024
L PNA, suspected secondary to aspiration as result of above
Right hemispheric CVA, extensive requiring transfer to [facility] neuro ICU followed by craniectomy�01/31/23-03/07/23
Status post VDRF, decannulated tracheostomy.
Dysphagia status post PEG tube
Right upper extremity embolism requiring urgent embolectomy 01/29/23
Functional paraplegia, bedbound status
Nonverbal
Paroxysmal atrial fibrillation, now with RVR
Chronic sotalol and digoxin therapy
Anticoagulation with Eliquis
Essential hypertension
Hypothyroidism
Prediabetes/hemoglobin A1c 6.2 01/2023
Sacral pressure wound
ECHO 01/30/23: EF 55 to 60%, no significant valvular disease, PAP 20 mmHg, no pericardial effusion, no definite evidence of shunt
Plan:
-Patient presented with hypoxia admitted for treatment of suspected aspiration PNA. COVID/flu negative. Possibly d/t PEG tube migration now s/p PEG tube repositioning 08/10/2024
-Developed AFib RVR here known history and is maintained on sotalol and digoxin as an outpatient
-Recommended increasing dose of sotalol however her family is reportedly hesitant last evening to allow her to have a higher dose
-Okay to continue home digoxin and sotalol dosing
-In the setting of infection we will need to except higher heart rates in the short-term, would except goal heart rate in the 120s for now
-Unfortunately blood pressure has been marginal which limits additional AV estella blockers
-Will trial low-dose diltiazem via tube with hold parameters
-Hold losartan
-Agree with giving gentle fluid hydration due to concerns for dehydration with recent GI losses. Follow volume status
-Continue Eliquis
Progress Note - Carcass Splitter
Subjective
Date of Service: August 12, 2024
No acute overnight events. Telemetry reviewed, patient with rapid ventricular rates overnight, at times regular suggestive of atrial flutter.
Objective
Labs:
08/12/24 03:54
08/12/24 03:54
Labs
Hgb 9.2 g/dL (12.0-16.0) L 08/12/24 03:54
Hct 29.4 % (37.0-47.0) L 08/12/24 03:54
Plt Count 302 10^3/uL (130-400) D 08/12/24 03:54
Sodium 141 mmol/L (135-145) 08/12/24 03:54
Potassium 4.0 mmol/L (3.5-5.1) 08/12/24 03:54
BUN 18 mg/dl (7-17) H 08/12/24 03:54
Creatinine 0.4 mg/dL (0.6-1.0) L 08/12/24 03:54
Glucose 142 mg/dl (70-99) H 08/12/24 03:54
Digoxin 0.9 ng/ml (0.8-2.0) 08/11/24 08:19
Vital Signs and I&O:
Vital Signs
Temp Pulse Resp BP Pulse Ox
98.2 F 137 30 104/78 97
08/12/24 08:00 08/12/24 10:00 08/12/24 10:00 08/12/24 10:00 08/12/24 07:14
Vital Signs
Temp Pulse Resp BP Pulse Ox
98.2 F 137 30 104/78 97
08/12/24 08:00 08/12/24 10:00 08/12/24 10:00 08/12/24 10:00 08/12/24 07:14
Intake & Output
08/10/24 08/11/24 08/12/24 08/13/24
06:59 06:59 06:59 06:59
Intake Total 280 / 340 1984 605 / 605
Balance 280 / 340 1984 605 / 605
Physical Exam
Physical Exam
Gen: NAD, AA resting comfortably in bed,
HEENT: NC/AT, sclera anicteric
Neck: No JVD
CV: Irregularly irregular, rapid
Lungs: Supplemental O2 via nasal cannula
Abd: S/ND
Ext: No LE edema
Skin: Warm, dry
Neuro: Non-focal
[2024-08-12 11:56] LABS: Glucose - Point of Care 198 mg/dl (70-99)
[2024-08-12] MEDS: LANOXIN 125 MCG TUBE (12:19)
[2024-08-12 14:09] LABS: TSH Reflex To Free T4 4.28 uIU/ml (0.47-4.68)
--- NOTE | 2024-08-12 14:16 | W.PN.PUL3 ---
Today's Communication / Plan
-
Continue antibiotics
Wean off oxygen as able
Aspiration precautions
Secretion clearance
No additional recommendation from the pulmonary perspective
Sign off
Assessment
-
Patient is a 79 year old female with history of devastating CVA s/p tPA/craniotomy at [facility], functional quadriplegia with chronic aphasia/nonverbal, paroxysmal A-fib, hypertension buo-ejsictw-jwbdtrccb diabetes, hypothyroidism, sacral decub ulcer
stage IV seen here at ER for SOB and hypoxemia. On arrival to ER, she was notably hypoxemic (86% on RA) and placed on 4L NC. She was previously trach/PEG, but her trach was reversed some time following her admission. She remains on TFs via PEG
but son notes she still eats somewhat by mouth. Son states, patient had N/V at home, possible aspiration. CXR showing LLL consolidation suspicious for PNA. She also had fever 101.4F, sinus tachycardia, leukocytosis, and lactic acidosis 3.7 on
admission concerning for severe sepsis.
Acute hypoxic respiratory failure
LLL PNA, possible aspiration
N/V at home
Lactic acidosis
Hyperglycemia
Shortness of breath
Leukocytosis, mild
Thrombocytosis
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
Acute seizures, encephalomalacia- diagnosed 06/05/24
Large R ICA ischemic stroke, s/p systemic tPA 01/29/2023
Transferred to [facility] Neuro ICU followed by R open craniectomy 02/21
Status post VDRF, decannulated tracheostomy
Dysphagia status post PEG tube
Sacral pressure wound stage IV
Chronic aphasia and L sided weakness
Acute RUE embolism s/p thrombectomy 01/29/23
Recurrent stroke, now at R MCA territory on CT head 01-31
Right ICA occlusion by MRA 01/29/23
HTN
Hypothyroidism
MDR Citrobacter UTI
PAF
Ambulatory dysfunction
Plan
Clinically improved-hypoxemia now almost resolved. Currently on 2 L. Wean off as able.
Prior history of trach/vent, s/p decannulation
Does not appear in distress at rest 08/12/2024
ABG without hypercapnia.
Avoid sedatives.
N/V history at home, CXR with LLL consolidation
Suspect patient has aspiration PNA
Afebrile and leukocytosis improving
Antibiotics transition to Augmentin via tube per infectious disease.
Negative cultures
-
She is high risk for aspiration, family still feed at home despite PEG placement
Speech therapy eval ongoing.
Will maintain strict n.p.o.
Overall patient has no cognitive capacity for airway clearance
Continue nebulizers for secretion clearance.
Patient has poor cough effort
Vest as able-while in the hospital.
-
No additional recommendation from the pulmonary perspective.
Sign off.
Diagnostic Data
Chest X-Ray: 08/10/24- Findings suspicious for left basilar/left lower lobe pneumonia.
CT Scan:
HEAD MRI 06/04/24- Large chronic infarcts of the majority of the right cerebral hemisphere, the anterior left frontal lobe and left basal ganglia with cortical laminar necrosis. Peripheral rim of restricted diffusion about the infarct in the right
frontal lobe and anterior paramedian left frontal lobe suggesting acute on chronic infarction.
Echo: 02/19/23- Normal biventricular size and systolic function without regional wall motion abnormality. Left ventricular ejection fraction by Zuluaga's biplane method 55-60% No significant valvular disease. Estimated pulmonary artery pressure of
27 mmHg assuming a right atrial pressure of 3 mmHg. No pericardial effusion In limited views, the interatrial septum appears hypermobile. No definite evidence of shunt by color-flow Doppler No prior study available for comparison Given indication
of stroke could consider transesophageal echocardiogram with bubble study, if clinically indicated
PFT's:
Reports and relevant images were personally reviewed.
Subjective Data
-
Date of Service:
Date of Service: August 12, 2024
Chief Complaint: Pulmonary Follow Up (Pneumonia)
Subjective:
Patient is nonverbal but appears comfortable.
On low rate supplemental oxygen
Occasionally cough
Review of Systems
General: Fever (n) and Other (Difficult to obtain due to mental status that is baseline)
Objective Data
Data Reviewed
Vital Signs / I&O / Oxygen:
Vital Signs
Temp Pulse Resp BP Pulse Ox
98 F 106 28 119/69 100
08/12/24 11:16 08/12/24 13:02 08/12/24 13:02 08/12/24 13:02 08/12/24 13:00
Intake and Output
08/11/24 08/12/24 08/13/24
06:59 06:59 06:59
Intake Total 280 / 340 1984 / 2140 850 / 850
Balance 280 / 340 1984 / 0 850 / 850
SaO2 100
Nasal Cannula flow liters per 2
minute
Physical Exam
General: Comfortable
HEENT: Normocephalic
Cardiovascular: S1-S2
Respiratory: Non-Labored Respirations
GI: Soft and Non Distended
Neurology: Awake and Other (Nonverbal)
Labs/Micro/Reports
Lab Data
08/12/24 03:54
08/12/24 03:54
Microbiology
08/12/24 12:39 Feces/Stool Cryptosporidium/Giardia - Final
Negative for Cryptosporidium and/or Giardia Lamblia
antigens.
08/12/24 12:39 Feces/Stool C. difficile GDH Antigen & Toxins - Final
Negative for toxigenic C.difficile
08/10/24 08:27 Blood/Venous Blood Culture - Preliminary
No Growth in 48 hours- Final report to follow
08/10/24 08:25 Blood/Venous Blood Culture - Preliminary
No Growth in 48 hours- Final report to follow
08/10/24 08:25 Nasal Swab Influenza Types A & B (JENA) - Final
Negative for Influenza A & B, NAAT
Negative results must be combined with clinical observations
and patient history.
Nucleic Acid Amplification test (NAAT)performed on the
[employer] platform.
[2024-08-12 17:43] LABS: Glucose - Point of Care 172 mg/dl (70-99)
--- NOTE | 2024-08-12 18:02 | PTCARENOTE ---
sacral dressing changed as ordered
[2024-08-13] VITALS (14 sets, daily range): BP systolic 102–147; BP diastolic 55–101; BMI 29.2
[2024-08-13 00:03] LABS: Glucose - Point of Care 216 mg/dl (70-99)
[2024-08-13] MEDS: NOVOLOG FLEXPEN-LOW RESISTANCE 2 UNITS SC ×2 (00:03→06:08)
[2024-08-13 05:06] LABS: Hematocrit 30.3 % (37.0-47.0); Hemoglobin 9.7 g/dL (12.0-16.0); Mean Corpuscular Volume 93.8 fL (81.0-99.0); Mean Platelet Volume 9.4 fL (7.4-10.4); Platelet Count 324 10^3/uL (130-400); Red Blood Cell Count 3.23 10^6/uL (4.20-5.40); White Blood Cell Count 11.3 10^3/uL (4.8-10.8)
[2024-08-13] MEDS: SYNTHROID 100 MCG TUBE (05:11)
--- NOTE | 2024-08-13 05:26 | PTCARENOTE ---
Pt slept well when undisturbed. Tube feeding now at goal of 65ml/hr. Pt continues with diarrhea-rectal trumpet remains in place. Assessment as charted.
[2024-08-13 06:18] LABS: Glucose - Point of Care 225 mg/dl (70-99)
[2024-08-13 06:57] LABS: Blood Urea Nitrogen 12 mg/dl (7-17); Calcium 8.7 mg/dl (8.4-10.2); Carbon Dioxide 22 mmol/L (22-30); Chloride 114 mmol/L (98-107); Estimated Creatinine Clearance 88 ml/min; Glucose 204 mg/dl (70-99); Magnesium 1.6 mg/dl (1.6-2.3); Potassium 4.1 mmol/L (3.5-5.1); Sodium 141 mmol/L (135-145); eGFR > 60.00
--- NOTE | 2024-08-13 07:45 | PTCARENOTE ---
Addendum entered by Sandhya Morales RN 08/13/24 13:49:
Patient incontinent of urine. Skin care and diaper change every 2 hours with turning.
Original Note:
Patient received lying still in bed with eyes closed, respirations tachypneic, mildly labored with occasional loose NPC. She is baseline nonverbal with ability to move right arm and right foot. Left arm flaccid with some contracture of left hand.
Left LE with no movement noted. She tracks RN with her eyes, but she does not shake head yes/no to questions asked. She is pale and cool. Warm blankets donned. BP stable. Afib on CM with HR 100-130. Right lung is clear but left lung with fine
crackles t/o. PEG tube in place with Tube feeding infusing at 65/hr, water flush at 25cc/hr. Patient turned every 2 hours. RUE with 1-2+ edema, LUE with 2-3+ edema. Bilateral ankle edema 1+. Pedal pulses weak with palpation. Rectal trumpet in place
with yellow brown loose liquid stool draining per rectum.
[2024-08-13] MEDS: AUGMENTIN 250 MG/5 ML 500 MG TUBE ×2 (07:47→20:00)
[2024-08-13] MEDS: BACTROBAN 2% OINTMENT 1 APPLIC TOPICAL (07:48)
[2024-08-13] MEDS: BETAPACE 80 MG TUBE ×2 (07:48→20:01)
[2024-08-13] MEDS: PREVACID 15 MG TUBE (07:50)
[2024-08-13] MEDS: ELIQUIS 5 MG TUBE ×2 (07:50→20:01)
[2024-08-13] MEDS: DAKIN'S SOLUTION 0.125% 1/4 STRENGTH 10 ML TOPICAL (07:50)
[2024-08-13] MEDS: SYMMETREL SYRUP 150 MG TUBE ×2 (07:51→20:00)
[2024-08-13] MEDS: TYLENOL ORAL SOLUTION 650 MG TUBE ×2 (07:51→18:26)
[2024-08-13] MEDS: THERAGRAN 1 TABLET TUBE (07:51)
--- NOTE | 2024-08-13 08:20 | PTCARENOTE ---
Dr Marie at bedside to assess, updated with patient clinical status. Repeat CXR ordered due to increase in Resp rate and effort. Patient son updated by phone of patient clinical status.
--- NOTE | 2024-08-13 09:00 | PTCARENOTE ---
Patternmaker Apprentice Wood Dr. Vera at bedside to assess, updated with patient clinical status. CXR performed.
--- NOTE | 2024-08-13 09:52 | W.PN.CARDCBS ---
Today's Communication / Plan
-
Home sotalol and digoxin; check EKG/monitor QT
Oral (via tube) diltiazem QID for HR control if needed
ABX/resp care per primary service/ID
Monitor on telemetry
Impression / Plan
-
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
Assessment:
Presentation with sepsis
Acute hypoxic Respiratory failure
N/V, PEG tube migration with repositioning 08/10/2024
L PNA, suspected secondary to aspiration as result of above
Right hemispheric CVA, extensive requiring transfer to [facility] neuro ICU followed by craniectomy�01/31/23-03/07/23
Status post VDRF, decannulated tracheostomy.
Dysphagia status post PEG tube
Right upper extremity embolism requiring urgent embolectomy 01/29/23
Functional paraplegia, bedbound status
Nonverbal
Paroxysmal atrial fibrillation, now with RVR , on Chronic sotalol and digoxin therapy and OAC with Eliquis
Essential hypertension
Hypothyroidism
Prediabetes/hemoglobin A1c 6.2 01/2023
Sacral pressure wound
ECHO 01/30/23: EF 55 to 60%, no significant valvular disease, PAP 20 mmHg, no pericardial effusion, no definite evidence of shunt
ECHO 08/12/2024: EF 55-60%, mild LVF, no significant valvular disease, PASP 30-35mmHg
Plan:
-Patient presented with hypoxia admitted for treatment of suspected aspiration PNA. COVID/flu negative. Possibly d/t PEG tube migration now s/p PEG tube repositioning 08/10/2024
-Developed AFib RVR here known history and is maintained on sotalol and digoxin as an outpatient
-Home digoxin and sotalol resume, EKG in AM pending for QT monitoring
-In the setting of infection we will need to except higher heart rates in the short-term, would except goal heart rate in the 120s for now
-Unfortunately blood pressure has been marginal which limits additional AV estella blockers; with BP improving, can consider additional rate controlling agent such as diltiazem if symptomatic, will trial low-dose diltiazem PRN (indication provided)
via tube with hold parameters
-Agree with giving gentle fluid hydration due to concerns for dehydration with recent GI losses. Follow volume status
-Continue Eliquis
d/w nursing
Progress Note - Pilot Boat Captain
Subjective
Date of Service: August 13, 2024
Patient seen and examined. No acute events overnight. Patient opening eyes to verbal stimuli and tracking. No acute distress. Patient on nasal cannula. Telemetry demonstrates atrial fibrillation heart rate 100-130 bpm.
Objective
Labs:
08/13/24 04:46
08/13/24 06:15
Labs
Hgb 9.7 g/dL (12.0-16.0) L 08/13/24 04:46
Hct 30.3 % (37.0-47.0) L 08/13/24 04:46
Plt Count 324 10^3/uL (130-400) 08/13/24 04:46
Sodium 141 mmol/L (135-145) 08/13/24 06:15
Potassium 4.1 mmol/L (3.5-5.1) 08/13/24 06:15
BUN 12 mg/dl (7-17) 08/13/24 06:15
Creatinine 0.4 mg/dL (0.6-1.0) L 08/13/24 06:15
Glucose 204 mg/dl (70-99) H 08/13/24 06:15
Digoxin 0.9 ng/ml (0.8-2.0) 08/11/24 08:19
Vital Signs and I&O:
Vital Signs
Temp Pulse Resp BP Pulse Ox
97.8 F 103 41 129/65 100
08/13/24 08:17 08/13/24 09:00 08/13/24 09:00 08/13/24 08:17 08/13/24 09:00
Vital Signs
Temp Pulse Resp BP Pulse Ox
97.8 F 103 41 129/65 100
08/13/24 08:17 08/13/24 09:00 08/13/24 09:00 08/13/24 08:17 08/13/24 09:00
Intake & Output
08/11/24 08/12/24 08/13/24 08/14/24
06:59 06:59 06:59 06:59
Intake Total 280 / 340 1984 2965 / 2965
Output Total 200 / 200
Balance 280 / 340 1984 / 0 2765 / 2765
Physical Exam
Physical Exam
Gen: NAD, AA resting comfortably in bed,
HEENT: NC/AT, sclera anicteric
Neck: No JVD
CV: Irregularly irregular, rapid
Lungs: Supplemental O2 via nasal cannula
Abd: S/ND
Ext: No LE edema
Skin: Warm, dry
Neuro: Non-focal
--- NOTE | 2024-08-13 10:00 | PTCARENOTE ---
Rectal trumpet dislodged. Skin care given. Coccyx/sacral wound care given per order--cleansed with Dakin's soln, bactroban to wound bed, aglinate dressing packed to wound and covered with silicone border foam dressing. Rectal trumpet replaced and
zinc oxide applied becca rectally. #16Fr Rojas catheter inserted per order with clear yellow urine with sediment. TruVue lite boots donned to BLEs per order.
--- NOTE | 2024-08-13 10:50 | PTCARENOTE ---
Speech therapist at bedside to reassess patient ability to swallow. See f/u note.
--- NOTE | 2024-08-13 10:50 | PTOTSP ---
Speech Language Pathology
Pt seen for dysphagia tx. Provided 2ccs of thin water via pipetted straw. Labial leakage on R of small amount of liquid, but swallow initiated. Provided 2 single sips of thin water via straw with swallow response noted. This is a significant
improvement from evaluation on 08/11. No overt signs of aspiration noted, but pt is at high risk for aspiration, including silent aspiration.
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 Would recommend instrumental swallowing assessment closer to discharge if family to resume oral feedings at discharge.
Recommend:
(1) NPO
(2) Oral care 4x/day with suctioning as needed
(3) Meds via PEG
(4) VSE closer to discharge if family to consider feeding upon discharge
(5) GUIDE SETTER to continue to follow
--- NOTE | 2024-08-13 11:21 | W.PN.HOSP.TC ---
Today's Communication/Plan
-
Rojas placed to keep sacral decub stage IV ulcer clean
abx as per ID
IVF completed, IV lasix 40 mg daily started likely iatrogenic fluid overload,
cont rate control as per cardio
Pain control
wean O2 as tolerated
Assessment / Plan
Assessment / Plan
Physical Exam
General: No pallor, cyanosis, or jaundice.
HEENT: Normocephalic atraumatic on nasal cannula supplementation 2L
NECK: Supple. No JVD Carotid Bruits
RESPIRATORY: Clear to auscultation
CVS: S1, S2 sinus tachy. No murmur, rub or gallop.
ABDOMEN: Soft, non-tender. No distension. BS+/normal. G-tube present
EXTREMITIES: No peripheral cyanosis or edema.
AMMONIA REFRIGERATION TECHNICIAN: Awake responsive to physical and verbal stimuli but nonverbal, left sided hemiparesis, some RUE RLE mobility noted though unable to lift from bed.
IMPRESSION:
79 female functional quadriplegia since her stroke a year ago January 2023 right hemispheric with residual left hemiparesis nonverbal dysphagia s/p G-tube, history lytic treatment complicated with need for craniotomy, paroxysmal A-fib, hypertension
ire-tyeiiyr-mvyzfnygw diabetes, hypothyroidism, sacral decub ulcer, BIBEMS d/t son concern patient short of breath, requiring 4L on ED eval. Per son GEREMIASJared Goodenin, there was an illness running through the family that he believed patient caught resulting
in an episode nausea vomiting. Patient became progressively dyspneic prompting EMS call. Along with 4L requirement, ED eval notable for Fever 101.4 sinus tachycardia, leukocytosis, and lactic acidosis 3.7 concerning for severe sepsis. BP stable.
PLAN:
#Sepsis Aspiration Pneumonia (fever tachycardia Leukocytosis)
#Acute Hypoxic Respiratory Failure
IMU admit
once IV Tylenol given in ED
cont prn PO tylenol via G-tube
CXR appreciated left basilar/lower lobe pna
initial Lactic acid 3.7 since improved following IVF bolus
COVID Flu Neg
follow blood cultures NGTD
ID eval appreciated Empiric abx vanc zosyn switched to Cefipime then further de-escalated to Augmentin Doxycycline later added d/t concerns worsening LLL PNA as noted on CXR (the worsening however appears to be more due to pulm edema iatrogenic
fluid overload as below)
Pulm eval appreciated
Vest therapy
aspiration precautions
Wean O2 supplementation as tolerated
Duoneb prn, briefly treated with scheduled Duonebs since discontinued
#paroxysmal afib
#Developed Afib RVR later in admission
Cont Eliquis, digoxin (dig level appreciated wnl), sotalol
cont prn IV lopressor HR>120 persistent
ECHO appreciated preserve EF 55-60% no significant valve abn's
Cardio eval appreciated
-low dose prn PO Cardizem added
-Will have to accept higher heart rates in the short-term while treating sepsis/pneumonia
#Increased Tachypnea 08/13
#Suspect Iatrogenic Fluid overload Pulm Edema
Previously IVF given for low pressures since resolved
weight gain noted
repeat CXR noted worsening LLL PNA vs alveolar edema
trial Lasix given 40 mg with significant urine output noted, BNP also significantly elevated 6000s
cont IV lasix 40 mg daily
#Hx Stroke lytic therapy complicated with craniotomy
#Functional Quadriplegia
#dysphagia s/p G-tube
Meds via tube
con PPI
GI eval appreciated Tube re-positioned with tube check imaging confirmed optimum position
Dietary eval tube feeding recommendations appreciated
speech therapy appreciated strict NPO, some improvement in swallow noted, planned for VSE Thursday 08/16 to further evaluate.
#HTN
cont hold home losartan d/t low normal pressures sepsis concerns.
will consider resuming if BP elevates
#intermittent Hypotension likely d/t hypovolemia exacerbated by diarrhea
treated with IVF support since discontinued d/t iatrogenic fluid overload as above
Hypotension since resolved
stool studies appreciated largely neg including Cdiff and Norovirus, rest of studies pending, likely side effect abx
rectal tube in place but diarrhea output appears to be improving
#DM
recent A1c 6.9
hold home Metformin d/t Lactic Acidosis since improved
Low dose sliding scale Q6 increased to moderate with increased sugars associated with tube feeds
Novolog 3U Q6
#Hypothyroidism
cont home Synthroid
TSH wnl
#stage IV sacral decubitus wound
cont wound care
Rojas placed to keep wound clean
Pain control cont home regimen Tylenol BID morning and afternoon followed by Tylenol #3 at bedtime.
dvt ppx Eliquis
gi ppx PPI
Full Code
Discussed with patient's sons Sterling and Isiah Reyes
I spent a total of 50 minutes with the patient or on the floor. More than 50% of this time involved counseling and coordination of care.
Anticipated Discharge: > 48 hours
Subjective/Interval History
-
Date of Service: August 13, 2024
Seen and examined at bedside, appeared to be more tachypneic as day progressed though saturating well on 2L nasal cannula. BP improved from prior days, weight gain noted.
Objective Data
-
Labs:
Laboratory Results
08/13/24 08/13/24
04:46 06:15
WBC 11.3 H
Hgb 9.7 L
Hct 30.3 L
Plt Count 324
Sodium Cancelled 141
Potassium Cancelled 4.1
Chloride Cancelled 114 H
Carbon Dioxide Cancelled 22
BUN Cancelled 12
Creatinine Cancelled 0.4 L
Glucose Cancelled 204 H
Calcium Cancelled 8.7
Vital Signs:
Vital Signs
Temp Pulse Resp BP Pulse Ox
97.8 F 104 36 129/65 100
08/13/24 08:17 08/13/24 11:00 08/13/24 11:00 08/13/24 08:17 08/13/24 11:00
I&O
08/12/24 08/13/24 08/14/24
06:59 06:59 06:59
Intake Total 1984 2965 / 2965 260 / 260
Output Total 200 / 200
Balance 1984 2765 / 2765 260 / 260
[2024-08-13] MEDS: LANOXIN 125 MCG TUBE (11:42)
[2024-08-13] MEDS: GLUCOPHAGE 500 MG TUBE (11:42)
[2024-08-13] MEDS: ROBITUSSIN 200 MG TUBE ×3 (11:43→22:14)
[2024-08-13 12:22] LABS: Glucose - Point of Care 259 mg/dl (70-99)
[2024-08-13] MEDS: NOVOLOG FLEXPEN-LOW RESISTANCE 3 UNITS SC (12:28)
--- NOTE | 2024-08-13 12:30 | PTCARENOTE ---
CXR noted. ID Dr. Segura updated with patient clinical status.
--- NOTE | 2024-08-13 14:20 | CM ---
Addendum entered by Leo Bailon 08/13/24 14:23:
[facility] discharge instructions fax: [phone]
Original Note:
CM following re: discharge planning.
Discussed in Rounds, reviewed pt's chart, met with pt and pt's son Sterling at bedside.
Pt lives alone in a condo, 2 step to enter, has 2 supportive sons and receives 24/7 caregiver services under waiver program provided by [facility]. Per son, pt is bed bound, requires total care. Per son, pt will return back home with
resumptions of [facility] 24/7 caregiver services, [facility] services and family support.
D/C plan: return back home with resumptions of 24/7 caregiver services, [facility] services and family support. Pt will need ambulance transport.
CM will follow with discharge plan updates as hospitalization progresses
[2024-08-13] MEDS: VIBRAMYCIN 100 MG TUBE ×2 (14:25→22:14)
--- NOTE | 2024-08-13 14:28 | W.PN.ID1 ---
Date of Service
Date of Service: August 13, 2024
Today's Communication
-Add doxycycline 100mg suspension tube bid x 5d.
-Continue Augmentin 500mg tube bid (suspension) through 08/17/24.
Assessment / Plan
# Aspiration pneumonia due to N/V from malfunctioned PEG tube,
# s/p Sepsis with fever, leukocytosis, bandemia due to aspiration PNA
# Hx CVA/dysphagia with PEG
-blood cx's neg to date
-Oxygen status 100% at 2L
- Leukocytosis trending down
- RR 30's - 40's. ?Possibly due to Afib with RVR?
- Repeat CXR with increased LLL density.
-Add empiric doxycycline 100mg suspension tube bid x 5d.
-Continue Augmentin 500mg tube bid (suspension) through 08/17/24.
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
A-fib anticoagulated with Eliquis
Hemorrhagic stroke status post craniotomy in January 2023 and right side of skull left open
Chronic aphasia and left-sided weakness
Functional quadriplegia
Status post PEG tube feeding
History of the right upper extremity DVT requiring thrombectomy
Dyslipidemia
Insulin-dependent diabetes mellitus
Hypothyroidism
Anxiety and mood disorder
Chronic sacral decubitus
Shingles
Chief Complaint
-: Pneumonia
Subjective / Review of Systems
Per nurse, pt tachypneic.
Pt resting comfortably. Awake.
Vital Signs / Physical Exam
Vital Signs
Vital Signs
Temp Pulse Resp BP Pulse Ox
97.9 F 119 36 129/65 100
08/13/24 12:13 08/13/24 11:42 08/13/24 11:00 08/13/24 08:17 08/13/24 11:00
Physical Exam
Constitutional: No Acute Distress, Comfortable and Non-toxic
Cardiovascular: Regular Rate and S1/S2
Pulmonary: Clear (anterior lungs)
Gastrointestinal: Soft, Non Tender, Non Distended and Normal Bowel Sounds
Extremities: Negative Edema
Neurological: Awake and Alert
Objective Data
Lab Data
Lab Results
08/13/24 04:46
08/13/24 06:15
Estimated Creat Clear 88 ml/min 08/13/24 06:15
Lactic Acid Cancelled 08/12/24 06:15
Total Bilirubin 0.6 mg/dl (0.2-1.3) 08/10/24 09:12
AST 21 U/L (14-36) 08/10/24 09:12
ALT 19 U/L (0-35) 08/10/24 09:12
Alkaline Phosphatase 78 U/L (38-126) 08/10/24 09:12
Most recent labs reviewed.
Micro Results:
08/12/24 12:39 Salmonella/Shigella Culture - Preliminary
Feces/Stool Culture in Progress
Campylobacter Culture - Preliminary
Culture in Progress
Shiga Toxin Test - Pending
08/10/24 08:27 Blood Culture - Preliminary
Blood/Venous No Growth in 72 hours- Final report to follow
08/10/24 08:25 Blood Culture - Preliminary
Blood/Venous No Growth in 72 hours- Final report to follow
08/12/24 12:39 Cryptosporidium/Giardia - Final
Feces/Stool Negative for Cryptosporidium and/or Giardia Lamblia
antigens.
C. difficile GDH Antigen & Toxins - Final
Negative for toxigenic C.difficile
- Final
Negative for Norovirus GI and GII.
08/11/24 10:14 MRSA Screen - Final
Nose No Methicillin Resistant Staphylococcus aureus isolated.
08/10/24 08:25 Influenza Types A & B (JENA) - Final
Nasal Swab Negative for Influenza A & B, NAAT
Negative results must be combined with clinical observations
and patient history.
Nucleic Acid Amplification test (NAAT)performed on the
[employer] platform.
08/10/24 CXR: Findings suspicious for left basilar/left lower lobe pneumonia.
08/13/24 CXR: Large amount of asymmetric opacity in the left mid lung and left lower lung which appears to have increased in size and density since 08/10/2024. Diagnostic possibilities are (1) SEVERE LEFT LOWER LOBE PNEUMONIA (especially if there
are signs/symptoms of pulmonary infection) or (2) asymmetric alveolar pulmonary edema. Suspected small bilateral pleural effusions.
--- NOTE | 2024-08-13 14:50 | PTCARENOTE ---
Patient son Amar at the bedside. Requesting test results. Dr. Marie notified, arrived at bedside to update son. New orders received for labwork. IVF off per order, 40mg Lasix given IV x 1 per order.
[2024-08-13] MEDS: LASIX 40 MG IV (14:55)
--- NOTE | 2024-08-13 15:30 | PTCARENOTE ---
Tube feeding off one hour prior to administration of Vibramycin and one hour after. Off at 1330, resumed at 1530.
[2024-08-13 15:39] LABS: NT-proBNP 6810 pg/ml
[2024-08-13] MEDS: URE-NA 15 GRAMS TUBE (16:26)
[2024-08-13] MEDS: URE-NA TUBE (17:11)
--- NOTE | 2024-08-13 17:30 | PTCARENOTE ---
Pt son at the bedside with his . Questions answered within my scope of practice. HR noted 110-130s. Noted that DBP is slightly elevated at 99. Prn Cardizem given as ordered. Patient family states that patient is c/o right leg pain and
coccyx/wound pain. Patient noted grimacing. Advised by family that patient normally takes Tylenol #3 at bedtime and regular Tylenol in the morning and at night. Informed Hospitalist. New orders received. Patient is much more awake and alert this pm.
UO extremely good s/p Lasix. Also informed by family that patient is normally on Doxycycline 100mg BID at home for coccyx wound.
[2024-08-13 17:40] LABS: Glucose - Point of Care 191 mg/dl (70-99)
[2024-08-13] MEDS: NOVOLOG FLEXPEN 3 UNITS SC ×2 (17:50→23:21)
[2024-08-13] MEDS: NOVOLOG FLEXPEN-MODERATE RESISTANCE 1 UNITS SC (17:51)
[2024-08-13] MEDS: CARDIZEM 30 MG TUBE (17:52)
--- NOTE | 2024-08-13 19:17 | PTCARENOTE ---
Report given verbally to RN assuming careShoshana. Questions answered.
[2024-08-13] MEDS: DAKIN'S SOLUTION 0.125% 1/4 STRENGTH 473 ML TOPICAL (20:01)
[2024-08-13] MEDS: TYLENOL #3 1 TABLET TUBE (22:14)
[2024-08-13] MEDS: NOVOLOG FLEXPEN-MODERATE RESISTANCE 3 UNITS SC (23:21)
[2024-08-13 23:32] LABS: Glucose - Point of Care 205 mg/dl (70-99)
[2024-08-14] VITALS (18 sets, daily range): BP systolic 97–143; BP diastolic 51–106; BMI 28.7
[2024-08-14] MEDS: CARDIZEM 30 MG TUBE (04:20)
[2024-08-14] MEDS: NOVOLOG FLEXPEN 3 UNITS SC (05:41)
[2024-08-14] MEDS: NOVOLOG FLEXPEN-MODERATE RESISTANCE 3 UNITS SC ×2 (05:41→19:20)
[2024-08-14] MEDS: VIBRAMYCIN 100 MG TUBE ×2 (05:41→18:42)
[2024-08-14] MEDS: SYNTHROID 100 MCG TUBE (05:41)
[2024-08-14 05:44] LABS: Hematocrit 32.3 % (37.0-47.0); Mean Corpuscular Hgb 29.5 pg (27.0-31.0); Mean Corpuscular Volume 95.3 fL (81.0-99.0); Mean Platelet Volume 9.3 fL (7.4-10.4); Platelet Count 362 10^3/uL (130-400); Red Blood Cell Count 3.39 10^6/uL (4.20-5.40); Red Cell Dist. Width 17.2 % (11.5-14.5); White Blood Cell Count 14.6 10^3/uL (4.8-10.8)
[2024-08-14 05:45] LABS: Glucose - Point of Care 220 mg/dl (70-99)
[2024-08-14 06:09] LABS: Blood Urea Nitrogen 23 mg/dl (7-17); Calcium 8.9 mg/dl (8.4-10.2); Carbon Dioxide 24 mmol/L (22-30); Chloride 111 mmol/L (98-107); Estimated Creatinine Clearance 87 ml/min; Glucose 235 mg/dl (70-99); Magnesium 1.5 mg/dl (1.6-2.3); Potassium 3.9 mmol/L (3.5-5.1); Sodium 144 mmol/L (135-145); eGFR > 60.00
--- NOTE | 2024-08-14 06:20 | PTCARENOTE ---
Pt sleeping when undisturbed. Heart rate increased to 130s-150s during night. Med with prn cardizem and heart rate 80s-100s now. Assessment as charted.
--- NOTE | 2024-08-14 07:20 | W.PN.HOSP.TC ---
Today's Communication/Plan
-
cont abx as per ID
rate control as per Cardio
wean O2 as tolerated
Assessment / Plan
Assessment / Plan
Physical Exam
General: No pallor, cyanosis, or jaundice.
HEENT: Normocephalic atraumatic on nasal cannula supplementation 2L
NECK: Supple. No JVD Carotid Bruits
RESPIRATORY: Clear to auscultation though appears more tachypneic from prior presentation.
CVS: S1, S2 sinus tachy. No murmur, rub or gallop.
ABDOMEN: Soft, non-tender. No distension. BS+/normal. G-tube present
EXTREMITIES: No peripheral cyanosis or edema.
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
IMPRESSION:
79 female functional quadriplegia since her stroke a year ago January 2023 right hemispheric with residual left hemiparesis nonverbal dysphagia s/p G-tube, history lytic treatment complicated with need for craniotomy, paroxysmal A-fib, hypertension
cms-bdhxpgp-xzjqhrhge diabetes, hypothyroidism, sacral decub ulcer, BIBEMS d/t son concern patient short of breath, requiring 4L on ED eval. Per son EMIGDIO Katz, there was an illness running through the family that he believed patient caught resulting
in an episode nausea vomiting. Patient became progressively dyspneic prompting EMS call. Along with 4L requirement, ED eval notable for Fever 101.4 sinus tachycardia, leukocytosis, and lactic acidosis 3.7 concerning for severe sepsis. BP stable.
PLAN:
#Sepsis Aspiration Pneumonia (fever tachycardia Leukocytosis)
#Acute Hypoxic Respiratory Failure
IMU admit
once IV Tylenol given in ED
cont prn PO tylenol via G-tube
CXR appreciated left basilar/lower lobe pna
initial Lactic acid 3.7 since resolved following IVF
COVID Flu Neg
follow blood cultures NGTD
ID eval appreciated Empiric abx vanc zosyn switched to Cefipime then further de-escalated to Augmentin Doxycycline later added d/t concerns worsening LLL PNA as noted on CXR, Augmentin switched back to Cefipime with increased white count and
tachypnea
Pulm eval appreciated
Vest therapy
aspiration precautions
Wean O2 supplementation as tolerated
Duoneb prn
#paroxysmal afib
#Developed Afib RVR later in admission
Cont Eliquis, digoxin (dig level appreciated wnl), sotalol
cont prn IV lopressor HR>120 persistent
ECHO appreciated preserve EF 55-60% no significant valve abn's
Cardio eval appreciated
-prn PO Cardizem
-Will have to accept higher heart rates in the short-term while treating sepsis/pneumonia
#Increased Tachypnea 08/13
#Suspect Iatrogenic Fluid overload Pulm Edema
Previously IVF given for low pressures since resolved
weight gain noted
repeat CXR noted worsening LLL PNA vs alveolar edema
trial Lasix given 40 mg with significant urine output noted, BNP also significantly elevated 6000s
cont IV lasix 40 mg daily
#Hx Stroke lytic therapy complicated with craniotomy
#Functional Quadriplegia
#dysphagia s/p G-tube
Meds via tube
con PPI
GI eval appreciated Tube re-positioned with tube check imaging confirmed optimum position
Dietary eval tube feeding recommendations appreciated
speech therapy appreciated strict NPO, some improvement in swallow noted, planned for VSE Thursday 08/16 to further evaluate.
#HTN
cont hold home losartan d/t low normal pressures sepsis concerns.
will consider resuming if BP elevates
#intermittent Hypotension likely d/t hypovolemia exacerbated by diarrhea
treated with IVF support since discontinued d/t iatrogenic fluid overload as above
Hypotension since resolved
stool studies appreciated largely neg including Cdiff and Norovirus, rest of studies pending, likely side effect abx
rectal tube in place but diarrhea output appears to be improving
#DM
recent A1c 6.09 Jun 2024
initial hold home Metformin d/t Lactic Acidosis since resolved
Metformin resumed and increased to 500 mg BID d/t uncontrolled DM
cont mod dose sliding scale
Novolog 3U increased to 5U Q6
#Hypothyroidism
cont home Synthroid
TSH wnl
#stage IV sacral decubitus wound
cont wound care
Rojas placed to keep wound clean
Pain control cont home regimen Tylenol BID morning and afternoon followed by Tylenol #3 at bedtime.
dvt ppx Eliquis
gi ppx PPI
Full Code
Discussed with patient's son Sterling BEAL
I spent a total of 50 minutes with the patient or on the floor. More than 50% of this time involved counseling and coordination of care.
Anticipated Discharge: 24 - 48 hours
Subjective/Interval History
-
Date of Service: August 14, 2024
appears to be more tachypneic though continues to saturate well on 2L nasal cannula. White count elevating remains afebrile.
Objective Data
-
Labs:
Laboratory Results
08/14/24
05:16
WBC 14.6 H
Hgb 10.0 L
Hct 32.3 L
Plt Count 362
Sodium 144
Potassium 3.9
Chloride 111 H
Carbon Dioxide 24
BUN 23 H
Creatinine 0.5 L
Glucose 235 H
Calcium 8.9
Vital Signs:
Vital Signs
Temp Pulse Resp BP Pulse Ox
98.8 F 135 38 117/106 99
08/14/24 03:12 08/14/24 06:00 08/14/24 06:00 08/14/24 06:00 08/14/24 06:00
I&O
08/13/24 08/14/24 08/15/24
06:59 06:59 06:59
Intake Total 2965 / 2965 2760 / 2760
Output Total 200 / 200 4400 / 4400
Balance 2765 / 2765 -1640 / -1640
[2024-08-14 08:06] LABS: Alcohol None Detected
[2024-08-14] MEDS: GLUCOPHAGE 500 MG TUBE ×2 (08:24→16:20)
[2024-08-14] MEDS: PREVACID 15 MG TUBE (08:24)
[2024-08-14] MEDS: SYMMETREL SYRUP 150 MG TUBE ×2 (08:24→19:30)
[2024-08-14] MEDS: AUGMENTIN 250 MG/5 ML 500 MG TUBE (08:24)
[2024-08-14] MEDS: ELIQUIS 5 MG TUBE ×2 (08:24→19:30)
[2024-08-14] MEDS: ROBITUSSIN 200 MG TUBE ×4 (08:25→22:02)
[2024-08-14] MEDS: BETAPACE 80 MG TUBE ×2 (08:25→19:34)
[2024-08-14] MEDS: THERAGRAN 1 TABLET TUBE (08:26)
[2024-08-14] MEDS: TYLENOL ORAL SOLUTION 650 MG TUBE ×2 (08:26→16:20)
[2024-08-14] MEDS: LASIX 40 MG IV (08:27)
--- NOTE | 2024-08-14 08:45 | PTCARENOTE ---
Assumed care of pt at 0715 following shift report. Pt resting quietly w/ eyes closed- opens eyes to name and tracks staff movement w/ eyes. Does not attempt to communicate in any way or follow commands. No distress noted. Physical assessment
completed as documented. Wound care completed as ordered. Hygiene and comfort care provided. Repositioned.
[2024-08-14] MEDS: MAGNESIUM SULFATE 100 IV (08:58)
[2024-08-14] MEDS: BACTROBAN 2% OINTMENT 1 APPLIC TOPICAL (08:59)
[2024-08-14] MEDS: DAKIN'S SOLUTION 0.125% 1/4 STRENGTH 473 ML TOPICAL ×2 (09:00→19:35)
--- NOTE | 2024-08-14 09:19 | W.PN.ID1 ---
Date of Service
Date of Service: August 14, 2024
Today's Communication
Replace Augmentin with cefepime 1g IV q6h.
Assessment / Plan
# Aspiration pneumonia due to N/V from malfunctioned PEG tube,
# s/p Sepsis with fever, leukocytosis, bandemia due to aspiration PNA
# Hx CVA/dysphagia with PEG
-blood cx's neg to date
-Oxygen status 100% at 2L
- Leukocytosis trended up
- RR remains 30's - 40's.
- Repeat CXR with increased LLL density.
-Continue doxycycline 100mg (d2) suspension tube bid x 5d.
-Replace Augmentin with cefepime 1g IV q6h.
# Afib with RVR
#Conditions RN ANESTHESIOLOGY
A-fib anticoagulated with Eliquis
Hemorrhagic stroke status post craniotomy in January 2023 and right side of skull left open
Chronic aphasia and left-sided weakness
Functional quadriplegia
Status post PEG tube feeding
History of the right upper extremity DVT requiring thrombectomy
Dyslipidemia
Insulin-dependent diabetes mellitus
Hypothyroidism
Anxiety and mood disorder
Chronic sacral decubitus, stage 4
Shingles
Chief Complaint
-: Pneumonia
Subjective / Review of Systems
Resting comfortably. Awake.
Vital Signs / Physical Exam
Vital Signs
Vital Signs
Temp Pulse Resp BP Pulse Ox
98.6 F 126 38 115/82 99
08/14/24 07:51 08/14/24 08:27 08/14/24 06:00 08/14/24 08:27 08/14/24 06:00
Physical Exam
Constitutional: Comfortable
Cardiovascular: Other (tachycardic)
Pulmonary: Clear (anterior lungs)
Gastrointestinal: Soft, Non Tender, Non Distended and Other (FMS loose stools)
Genito-Urinary: Rojas and Clear Urine
Extremities: Negative Edema
Neurological: Awake and Alert
Objective Data
Lab Data
Lab Results
08/14/24 05:16
08/14/24 05:16
Estimated Creat Clear 87 ml/min 08/14/24 05:16
Lactic Acid Cancelled 08/12/24 06:15
Total Bilirubin 0.6 mg/dl (0.2-1.3) 08/10/24 09:12
AST 21 U/L (14-36) 08/10/24 09:12
ALT 19 U/L (0-35) 08/10/24 09:12
Alkaline Phosphatase 78 U/L (38-126) 08/10/24 09:12
Most recent labs reviewed.
Micro Results:
08/10/24 08:27 Blood Culture - Preliminary
Blood/Venous No Growth in 4 days- Final report to follow
08/10/24 08:25 Blood Culture - Preliminary
Blood/Venous No Growth in 4 days- Final report to follow
08/12/24 12:39 Salmonella/Shigella Culture - Preliminary
Feces/Stool Culture in Progress
Campylobacter Culture - Preliminary
Culture in Progress
Shiga Toxin Test - Pending
08/12/24 12:39 Cryptosporidium/Giardia - Final
Feces/Stool Negative for Cryptosporidium and/or Giardia Lamblia
antigens.
C. difficile GDH Antigen & Toxins - Final
Negative for toxigenic C.difficile
- Final
Negative for Norovirus GI and GII.
08/11/24 10:14 MRSA Screen - Final
Nose No Methicillin Resistant Staphylococcus aureus isolated.
08/10/24 08:25 Influenza Types A & B (JENA) - Final
Nasal Swab Negative for Influenza A & B, NAAT
Negative results must be combined with clinical observations
and patient history.
Nucleic Acid Amplification test (NAAT)performed on the
[employer] platform.
08/10/24 CXR: Findings suspicious for left basilar/left lower lobe pneumonia.
08/13/24 CXR: Large amount of asymmetric opacity in the left mid lung and left lower lung which appears to have increased in size and density since 08/10/2024. Diagnostic possibilities are (1) SEVERE LEFT LOWER LOBE PNEUMONIA (especially if there
are signs/symptoms of pulmonary infection) or (2) asymmetric alveolar pulmonary edema. Suspected small bilateral pleural effusions.
Care Review
Plan reviewed with: Physician (Dr. Walton)
--- NOTE | 2024-08-14 09:37 | W.PN.CARDCBS ---
Today's Communication / Plan
-
Antibiotic therapy for underlying infection
Monitor on telemetry, check dig level
Low-dose Cardizem 4 times daily as needed heart rate greater than 120
Impression / Plan
-
Primary Skiver Box Toe: none in outpatient setting, first seen by Dr Dallas
Assessment:
Presentation with sepsis
Acute hypoxic Respiratory failure
N/V, PEG tube migration with repositioning 08/10/2024
L PNA, suspected secondary to aspiration as result of above
Right hemispheric CVA, extensive requiring transfer to [facility] neuro ICU followed by craniectomy�01/31/23-03/07/23
Status post VDRF, decannulated tracheostomy.
Dysphagia status post PEG tube
Right upper extremity embolism requiring urgent embolectomy 01/29/23
Functional paraplegia, bedbound status
Nonverbal
Paroxysmal atrial fibrillation, now with RVR , on Chronic sotalol and digoxin therapy and OAC with Eliquis
Essential hypertension
Hypothyroidism
Prediabetes/hemoglobin A1c 6.2 01/2023
Sacral pressure wound
ECHO 01/30/23: EF 55 to 60%, no significant valvular disease, PAP 20 mmHg, no pericardial effusion, no definite evidence of shunt
ECHO 08/12/2024: EF 55-60%, mild LVF, no significant valvular disease, PASP 30-35mmHg
Plan:
-Patient presented with hypoxia admitted for treatment of suspected aspiration PNA. COVID/flu negative. Possibly d/t PEG tube migration now s/p PEG tube repositioning 08/10/2024
-Developed AFib RVR here known history and is maintained on sotalol and digoxin as an outpatient
-Home digoxin and sotalol resume, EKG in 08/13 AF QT/QTc 300/434 ms
.
-In the setting of infection we will need to except higher heart rates in the short-term, would except goal heart rate in the 120s for now
-Unfortunately blood pressure has been marginal which limits additional AV estella blockers; with BP improving, patient tolerating low-dose diltiazem PRN (indication provided) via tube with hold parameters
-Agree with giving gentle fluid hydration due to concerns for dehydration with recent GI losses. Follow volume status
-Continue Eliquis
-Monitor digoxin level
d/w nursing
Progress Note - Skiver Box Toe
Subjective
Date of Service: August 14, 2024
Patient seen and examined. No acute events overnight. Patient opening eyes to verbal stimuli and tracking. No acute distress. Patient on nasal cannula. Telemetry demonstrates AF heart rate 90-130 bpm. BP improved.
Objective
Labs:
08/14/24 05:16
08/14/24 05:16
Labs
Hgb 10.0 g/dL (12.0-16.0) L 08/14/24 05:16
Hct 32.3 % (37.0-47.0) L 08/14/24 05:16
Plt Count 362 10^3/uL (130-400) 08/14/24 05:16
Sodium 144 mmol/L (135-145) 08/14/24 05:16
Potassium 3.9 mmol/L (3.5-5.1) 08/14/24 05:16
BUN 23 mg/dl (7-17) H 08/14/24 05:16
Creatinine 0.5 mg/dL (0.6-1.0) L 08/14/24 05:16
Glucose 235 mg/dl (70-99) H 08/14/24 05:16
Digoxin 0.9 ng/ml (0.8-2.0) 08/11/24 08:19
Vital Signs and I&O:
Vital Signs
Temp Pulse Resp BP Pulse Ox
98.6 F 126 38 115/82 99
08/14/24 07:51 08/14/24 08:27 08/14/24 06:00 08/14/24 08:27 08/14/24 06:00
Vital Signs
Temp Pulse Resp BP Pulse Ox
98.6 F 126 38 115/82 99
08/14/24 07:51 08/14/24 08:27 08/14/24 06:00 08/14/24 08:27 08/14/24 06:00
Intake & Output
08/12/24 08/13/24 08/14/24 08/15/24
06:59 06:59 06:59 06:59
Intake Total 1984 2965 / 2965 2760 / 2760
Output Total 200 / 200 4400 / 4400
Balance 1984 2765 / 2765 -1640 / -1640
Physical Exam
Physical Exam
Gen: NAD, AA resting comfortably in bed,
HEENT: NC/AT, sclera anicteric
Neck: No JVD
CV: Irregularly irregular, rapid
Lungs: Supplemental O2 via nasal cannula
Abd: S/ND
Ext: No LE edema
Skin: Warm, dry
Neuro: Non-focal
[2024-08-14] MEDS: STERILE WATER FOR INJECTION 10 ML IV ×3 (10:47→22:02)
[2024-08-14] MEDS: MAXIPIME 1000 MG IV ×3 (10:47→22:02)
[2024-08-14] MEDS: LANOXIN 125 MCG TUBE (11:28)
--- NOTE | 2024-08-14 12:00 | PTCARENOTE ---
Pt continues to rest quietly, Pox 96-97% on RA. No changes from previous assessment findings.
[2024-08-14] MEDS: NOVOLOG FLEXPEN-MODERATE RESISTANCE 5 UNITS SC (12:08)
[2024-08-14] MEDS: NOVOLOG FLEXPEN 5 UNITS SC ×2 (12:09→19:20)
[2024-08-14 12:19] LABS: Glucose - Point of Care 295 mg/dl (70-99)
--- NOTE | 2024-08-14 16:00 | PTCARENOTE ---
Pt continues to rest quietly. No changes noted. Frequent repositioning/comfort care provided.
[2024-08-14 19:19] LABS: Glucose - Point of Care 228 mg/dl (70-99)
--- NOTE | 2024-08-14 20:25 | PTCARENOTE ---
handoff report received from off going RN. Patient received in bed awake. Nonverbal at baseline. pupils are +3 and reactive. Pt followed simple commands to assess right sided strength. Left sided paralysis. Pt opened her mouth for mouth care when
coaxed. Can move her right arm to her face. Plan of care for the shift reviewed with the patient. Afib on the monitor. HR fluctuating between 100-145 and not sustaining either. scheduled sotalol administered. Diminished breath sounds. Pt's
tachypeneic with RR 37. SpO2 at 96% on room air. + bowel sounds. PEg tube assessed and at 6 cm. Difficulty with flushing noted. Rojas catheter care provided. The patient has a rectal trumpet that's draining brownish yellow stool. Right midline
flushed without blood return. Rt hand 22 is patent. Patient repositioned. Safety measures maintained.
[2024-08-14] MEDS: CARDIZEM 5 MG IV (21:00)
--- NOTE | 2024-08-14 21:03 | PTCARENOTE ---
[id number]: Patient converted from AFib to SVT with HR 175 and sustaining. RR 45. Pt opens her eyes to verbal command. Cardizem order is for peg tube. Helena Flores (brian), STAFFING ASSOCIATE paged and made aware. Cardizem 5 mg IV ordered and administered. Pt's back
in AFib with HR 95-105. RR 39. SaO2 at 96% on room air.
[2024-08-14] MEDS: TYLENOL #3 1 TABLET TUBE (22:02)
[2024-08-15] VITALS (12 sets, daily range): BP systolic 96–128; BP diastolic 47–67; BMI 28.4
[2024-08-15] MEDS: NOVOLOG FLEXPEN-MODERATE RESISTANCE 3 UNITS SC ×4 (00:05→17:54)
[2024-08-15] MEDS: NOVOLOG FLEXPEN 5 UNITS SC ×5 (00:05→23:29)
--- NOTE | 2024-08-15 00:14 | PTCARENOTE ---
Patient reassessed. No changes. Turns and repositioning continued. Safety measures remain in use.
[2024-08-15 00:17] LABS: Glucose - Point of Care 217 mg/dl (70-99)
[2024-08-15 04:35] LABS: Hematocrit 31.7 % (37.0-47.0); Hemoglobin 10.2 g/dL (12.0-16.0); Mean Corp Hgb Conc. 32.2 g/dL (33.0-37.0); Mean Corpuscular Hgb 29.7 pg (27.0-31.0); Mean Corpuscular Volume 92.4 fL (81.0-99.0); Mean Platelet Volume 9.1 fL (7.4-10.4); Platelet Count 366 10^3/uL (130-400); Red Blood Cell Count 3.43 10^6/uL (4.20-5.40); Red Cell Dist. Width 16.8 % (11.5-14.5); White Blood Cell Count 17.1 10^3/uL (4.8-10.8)
[2024-08-15 04:55] LABS: Blood Urea Nitrogen 22 mg/dl (7-17); Carbon Dioxide 26 mmol/L (22-30); Chloride 112 mmol/L (98-107); Estimated Creatinine Clearance 87 ml/min; Glucose 225 mg/dl (70-99); Magnesium 1.9 mg/dl (1.6-2.3); Sodium 146 mmol/L (135-145); eGFR > 60.00
[2024-08-15] MEDS: STERILE WATER FOR INJECTION 10 ML IV ×4 (05:08→21:35)
[2024-08-15] MEDS: MAXIPIME 1000 MG IV ×4 (05:08→21:35)
--- NOTE | 2024-08-15 05:10 | PTCARENOTE ---
Patient reassessed. Sinus rhythm on the monitor. Remains on room air. Safety measures maintained.
[2024-08-15] MEDS: SYNTHROID 100 MCG TUBE (05:36)
[2024-08-15 05:51] LABS: Glucose - Point of Care 223 mg/dl (70-99)
[2024-08-15] MEDS: VIBRAMYCIN 100 MG TUBE (06:02)
[2024-08-15 06:20] LABS: Digoxin < 0.04 ng/ml (0.8-2.0)
--- NOTE | 2024-08-15 07:15 | W.PN.HOSP.TC ---
Today's Communication/Plan
-
cont abx as per ID
rate control as per Cardio
increased free water flush for hypernatremia (home Ur-Na placed on hold)
Tube Check confirms satisfactory position.
Follow Cultures
trend wbc
Assessment / Plan
Assessment / Plan
Physical Exam
General: No pallor, cyanosis, or jaundice.
HEENT: Normocephalic atraumatic
NECK: Supple. No JVD Carotid Bruits
RESPIRATORY: Clear to auscultation. Stable respiratory status on room air
CVS: S1, S2 tachy. No murmur, rub or gallop.
ABDOMEN: Soft, non-tender. No distension. BS+/normal. G-tube present
EXTREMITIES: No peripheral cyanosis or edema.
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
IMPRESSION:
79 female functional quadriplegia since her stroke a year ago January 2023 right hemispheric with residual left hemiparesis nonverbal dysphagia s/p G-tube, history lytic treatment complicated with need for craniotomy, paroxysmal A-fib, hypertension
[id number]-[id number] diabetes, hypothyroidism, sacral decub ulcer, BIBEMS d/t son concern patient short of breath, requiring 4L on ED eval. Per son EMIGDIO Katz, there was an illness running through the family that he believed patient caught resulting
in an episode nausea vomiting. Patient became progressively dyspneic prompting EMS call. Along with 4L requirement, ED eval notable for Fever 101.4 sinus tachycardia, leukocytosis, and lactic acidosis 3.7 concerning for severe sepsis. BP stable.
PLAN:
#Sepsis Aspiration Pneumonia (fever tachycardia Leukocytosis)
#Acute Hypoxic Respiratory Failure
IMU admit
once IV Tylenol given in ED
cont prn PO tylenol via G-tube
CXR appreciated left basilar/lower lobe pna
initial Lactic acid 3.7 since resolved following IVF
COVID Flu Neg
follow blood cultures NGTD
ID eval appreciated Empiric abx vanc zosyn switched to Cefipime then further de-escalated to Augmentin Doxycycline later added d/t concerns worsening LLL PNA as noted on CXR, Augmentin switched back to Cefipime with increased white count and
tachypnea, later doxycycline switched to IV flagyll q8h as per ID
Pulm eval appreciated
Vest therapy
aspiration precautions
Weaned off oxygen supplementation, stable respiratory status on room air
Duoneb prn
#paroxysmal afib
#Developed Afib RVR later in admission
Cont Eliquis, digoxin (dig level appreciated wnl), sotalol
ECHO appreciated preserve EF 55-60% no significant valve abn's
Cardio eval appreciated
-prn PO Cardizem
-accepting higher heart rates in the short-term while treating sepsis/pneumonia
#Increased Tachypnea 08/13
#Suspect Iatrogenic Fluid overload Pulm Edema
Previously IVF given for low pressures since resolved
weight gain noted
repeat CXR noted worsening LLL PNA vs alveolar edema
trial Lasix given 40 mg with significant urine output noted, BNP also significantly elevated 6000s
IV lasix 40 mg daily completed after weaning off oxygen supplementation to room air as above.
#Hx Stroke lytic therapy complicated with craniotomy
#Functional Quadriplegia
#dysphagia s/p G-tube
Meds via tube
con PPI
GI eval appreciated Tube re-positioned with tube check imaging confirmed optimum position later repeated d/t RN concern resistance with flushing, remains in satisfactory position 08/15/24
Dietary eval tube feeding recommendations appreciated
speech therapy appreciated strict NPO, some improvement in swallow noted, planned for VSE Thursday 08/16 to further evaluate.
#Mild Hypernatremia
free water flushes increased from 25 cc to 35
home Ur-Na supplement for hyponatremia placed on hold
#HTN
cont hold home losartan d/t low normal pressures sepsis concerns.
will consider resuming if BP elevates
#intermittent Hypotension likely d/t hypovolemia exacerbated by diarrhea
treated with IVF support since discontinued d/t iatrogenic fluid overload as above
Hypotension since resolved
stool studies appreciated largely neg including Cdiff and Norovirus, shiga toxin remains pending, likely side effect abx
rectal tube in place but diarrhea output appears to be improving
#DM
recent A1c 6.09 Jun 2024
initial hold home Metformin d/t Lactic Acidosis since resolved
Metformin resumed and increased to 500 mg BID d/t uncontrolled DM
cont mod dose sliding scale
Novolog started 3U increased to 5U Q6
Lantus 10U added
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
#Hypothyroidism
cont home Synthroid
TSH wnl
#stage IV sacral decubitus wound
cont wound care
Rojas placed to keep wound clean
Pain control cont home regimen Tylenol BID morning and afternoon followed by Tylenol #3 at bedtime.
dvt ppx Eliquis
gi ppx PPI
Full Code
Stable for downgrade to Tele
Discussed with patient's son Sterling BEAL
I spent a total of 50 minutes with the patient or on the floor. More than 50% of this time involved counseling and coordination of care.
Anticipated Discharge: > 48 hours
Subjective/Interval History
-
Date of Service: August 15, 2024
Seen and examined at bedside in no acute distress resting comfortably in bed. Appears clinically improved, weaned off oxygen supplementation, stable respiratory status on room air. notably sensors indicate a respiratory rate in 30s, does not
correlate with clinical observation. Respiration non-labored at this time, does not appear tachypneic
Objective Data
-
Labs:
Laboratory Results
08/15/24
04:24
WBC 17.1 H
Hgb 10.2 L
Hct 31.7 L
Plt Count 366
Sodium 146 H
Potassium 4.0
Chloride 112 H
Carbon Dioxide 26
BUN 22 H
Creatinine 0.5 L
Glucose 225 H
Calcium 9.0
Vital Signs:
Vital Signs
Temp Pulse Resp BP Pulse Ox
98.6 F 92 33 112/58 98
08/15/24 03:23 08/15/24 04:10 08/15/24 04:10 08/15/24 04:10 08/15/24 04:10
I&O
08/14/24 08/15/24 08/16/24
06:59 06:59 06:59
Intake Total 2760 / 2760 1090 / 1090
Output Total 4400 / 4400 2605 / 2605
Balance -1640 / -1640 -1515 / -1515
[2024-08-15] MEDS: BETAPACE 80 MG TUBE ×2 (08:23→20:01)
[2024-08-15] MEDS: SYMMETREL SYRUP 150 MG TUBE ×2 (08:24→20:01)
[2024-08-15] MEDS: TYLENOL ORAL SOLUTION 650 MG TUBE ×2 (08:24→16:59)
[2024-08-15] MEDS: THERAGRAN 1 TABLET TUBE (08:24)
[2024-08-15] MEDS: ROBITUSSIN 200 MG TUBE ×4 (08:24→21:36)
[2024-08-15] MEDS: PREVACID 15 MG TUBE (08:24)
[2024-08-15] MEDS: GLUCOPHAGE 500 MG TUBE ×2 (08:24→16:59)
[2024-08-15] MEDS: ELIQUIS 5 MG TUBE ×2 (08:25→20:00)
--- NOTE | 2024-08-15 08:30 | PTCARENOTE ---
Assumed care of pt at 0715 following shift report. Pt awake and resting quietly. No distress. Tracks staff movement w/ her eyes but does not attempt to communicate or follow commands- no change from baseline. Tube feedings continue at goal rate-
sluggish to flush- Dr Walton on unit and notified. Rojas patent and draining clear laila urine. Rojas hygiene completed. Rectal trumpet remains in place and draining liquid brown BM. Wound care and hygiene completed. Pt turned and repositioned.
Comfort care and emotional support provided. Safe environment maintained.
--- NOTE | 2024-08-15 09:15 | PTCARENOTE ---
Dr Mo in room to evaluate pt. Updated on events overnight requiring Cardizem IV dose- no new orders at this time.
[2024-08-15] MEDS: BACTROBAN 2% OINTMENT 1 APPLIC TOPICAL (09:18)
[2024-08-15] MEDS: LANTUS 0.1 UNITS SC (09:19)
[2024-08-15] MEDS: DAKIN'S SOLUTION 0.125% 1/4 STRENGTH 473 ML TOPICAL ×2 (09:19→20:00)
[2024-08-15] MEDS: LASIX IV (09:21)
--- NOTE | 2024-08-15 09:24 | W.PN.ID1 ---
Date of Service
Date of Service: August 15, 2024
Today's Communication
Check blood cx's.
Add metronidazole.
DC doxy.
Assessment / Plan
# Aspiration pneumonia
# Leukocytosis continues to trend up
# Hx CVA/dysphagia with PEG
-blood cx's neg to date
-Oxygen status 100% at 2L
-C. diff negative
- Leukocytosis trending up
- RR remains 30's - 40's.
- Repeat CXR with increased LLL density.
- Ordered bcx x2
-Continue cefepime 1g IV q6h (d2)
- Add metronidazole 500mg IV q8
-DC doxycycline.
- Follow wbc
# Afib with RVR
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
A-fib anticoagulated with Eliquis
Hemorrhagic stroke status post craniotomy in January 2023 and right side of skull left open
Chronic aphasia and left-sided weakness
Functional quadriplegia
Status post PEG tube feeding
History of the right upper extremity DVT requiring thrombectomy
Dyslipidemia
Insulin-dependent diabetes mellitus
Hypothyroidism
Anxiety and mood disorder
Chronic sacral decubitus, stage 4
Shingles
Chief Complaint
-: Pneumonia
Vital Signs / Physical Exam
Vital Signs
Vital Signs
Temp Pulse Resp BP Pulse Ox
99.7 F 91 33 110/58 98
08/15/24 08:36 08/15/24 08:23 08/15/24 04:10 08/15/24 08:23 08/15/24 04:10
Physical Exam
Constitutional: No Acute Distress, Comfortable and Non-toxic
Eyes: No Conjunctival Hemorrhage and Sclera Anicteric
Cardiovascular: Irregular Rate, S1/S2 and Other (tachy)
Pulmonary: Clear (anteriorly)
Gastrointestinal: Soft, Non Tender, Non Distended, Normal Bowel Sounds and Other (FMS liquid stool)
Extremities: Negative Edema
Wound: Other (Reviewed wound photo: sacral wound stage 4 clean)
Neurological: Awake and Alert
Objective Data
Lab Data
Lab Results
08/15/24 04:24
08/15/24 04:24
Estimated Creat Clear 87 ml/min 08/15/24 04:24
Lactic Acid Cancelled 08/12/24 06:15
Total Bilirubin 0.6 mg/dl (0.2-1.3) 08/10/24 09:12
AST 21 U/L (14-36) 08/10/24 09:12
ALT 19 U/L (0-35) 08/10/24 09:12
Alkaline Phosphatase 78 U/L (38-126) 08/10/24 09:12
Most recent labs reviewed.
Micro Results:
08/10/24 08:27 Blood Culture - Final
Blood/Venous No Growth - Final Report
08/10/24 08:25 Blood Culture - Final
Blood/Venous No Growth - Final Report
08/12/24 12:39 Salmonella/Shigella Culture - Final
Feces/Stool No Salmonella, Shigella, Aeromonas or Plesiomonas species
isolated.
Campylobacter Culture - Final
No Campylobacter species isolated.
Shiga Toxin Test - Pending
08/12/24 12:39 Cryptosporidium/Giardia - Final
Feces/Stool Negative for Cryptosporidium and/or Giardia Lamblia
antigens.
C. difficile GDH Antigen & Toxins - Final
Negative for toxigenic C.difficile
- Final
Negative for Norovirus GI and GII.
08/11/24 10:14 MRSA Screen - Final
Nose No Methicillin Resistant Staphylococcus aureus isolated.
08/10/24 08:25 Influenza Types A & B (JENA) - Final
Nasal Swab Negative for Influenza A & B, NAAT
Negative results must be combined with clinical observations
and patient history.
Nucleic Acid Amplification test (NAAT)performed on the
[employer] platform.
08/10/24 CXR: Findings suspicious for left basilar/left lower lobe pneumonia.
08/13/24 CXR: Large amount of asymmetric opacity in the left mid lung and left lower lung which appears to have increased in size and density since 08/10/2024. Diagnostic possibilities are (1) SEVERE LEFT LOWER LOBE PNEUMONIA (especially if there
are signs/symptoms of pulmonary infection) or (2) asymmetric alveolar pulmonary edema. Suspected small bilateral pleural effusions.
--- NOTE | 2024-08-15 09:45 | PTCARENOTE ---
Pt to radiology for ordered xray to confirm PEG placement.
--- NOTE | 2024-08-15 10:03 | W.PN.CARDCBS ---
Today's Communication / Plan
-
Antibiotic therapy for underlying infection
Monitor on telemetry, check dig level
Patient out of AF, continue sotalol, digoxin; diltiazem as needed
Impression / Plan
-
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
Assessment:
Presentation with sepsis
Acute hypoxic Respiratory failure
N/V, PEG tube migration with repositioning 08/10/2024
L PNA, suspected secondary to aspiration as result of above
Right hemispheric CVA, extensive requiring transfer to [facility] neuro ICU followed by craniectomy�01/31/23-03/07/23
Status post VDRF, decannulated tracheostomy.
Dysphagia status post PEG tube
Right upper extremity embolism requiring urgent embolectomy 01/29/23
Functional paraplegia, bedbound status
Nonverbal
Paroxysmal atrial fibrillation, RVR during admission, spontaneous return to sinus rhythm 08/14-08/15, on Chronic sotalol and digoxin therapy and OAC with Eliquis
Essential hypertension
Hypothyroidism
Prediabetes/hemoglobin A1c 6.2 01/2023
Sacral pressure wound
ECHO 01/30/23: EF 55 to 60%, no significant valvular disease, PAP 20 mmHg, no pericardial effusion, no definite evidence of shunt
ECHO 08/12/2024: EF 55-60%, mild LVF, no significant valvular disease, PASP 30-35mmHg
Plan:
-Patient presented with hypoxia admitted for treatment of suspected aspiration PNA. COVID/flu negative. Possibly d/t PEG tube migration now s/p PEG tube repositioning 08/10/2024
-Developed AFib RVR here known history and is maintained on sotalol and digoxin as an outpatient, return to sinus rhythm 08/14/2024 - 08/15/2024
-Home digoxin and sotalol resume, EKG in 08/13 AF QT/QTc 300/434 ms
.
-In the setting of infection we will need to except higher heart rates in the short-term, would except goal heart rate in the 120s for now with AF
-Unfortunately blood pressure has been marginal which limits additional AV estella blockers; with BP improving, patient tolerating low-dose diltiazem PRN (indication provided) via tube with hold parameters; leukocytosis worsening, patient febrile
-Agree with giving gentle fluid hydration due to concerns for dehydration with recent GI losses. Follow volume status
-Continue Eliquis
-Monitor digoxin level, repeat in a.m.
d/w nursing
Progress Note - Portable Grinding Machine Operator
Subjective
Date of Service: August 15, 2024
Patient seen and examined. Overnight spontaneous return to sinus rhythm. No other acute events overnight. Of note elevated temperature 99.7 this morning with some diaphoresis. Mild tachypnea. On nasal cannula, opening eyes to verbal stimuli and
tracking.
Objective
Labs:
08/15/24 04:24
08/15/24 04:24
Labs
Hgb 10.2 g/dL (12.0-16.0) L 08/15/24 04:24
Hct 31.7 % (37.0-47.0) L 08/15/24 04:24
Plt Count 366 10^3/uL (130-400) 08/15/24 04:24
Sodium 146 mmol/L (135-145) H 08/15/24 04:24
Potassium 4.0 mmol/L (3.5-5.1) 08/15/24 04:24
BUN 22 mg/dl (7-17) H 08/15/24 04:24
Creatinine 0.5 mg/dL (0.6-1.0) L 08/15/24 04:24
Glucose 225 mg/dl (70-99) H 08/15/24 04:24
Digoxin < 0.04 ng/ml (0.8-2.0) L 08/15/24 04:24
Vital Signs and I&O:
Vital Signs
Temp Pulse Resp BP Pulse Ox
99.7 F 91 33 110/58 98
08/15/24 08:36 08/15/24 08:23 08/15/24 04:10 08/15/24 08:23 08/15/24 04:10
Vital Signs
Temp Pulse Resp BP Pulse Ox
99.7 F 91 33 110/58 98
08/15/24 08:36 08/15/24 08:23 08/15/24 04:10 08/15/24 08:23 08/15/24 04:10
Intake & Output
08/13/24 08/14/24 08/15/24 08/16/24
06:59 06:59 06:59 06:59
Intake Total 2965 / 2965 2760 / 2760 1090 / 1090
Output Total 200 / 200 4400 / 4400 2605 / 2605
Balance 2765 / 2765 -1640 / -1640 -1515 / -1515
Physical Exam
Physical Exam
Gen: NAD, AA, mild tachypnea, mild diaphoresis
HEENT: NC/AT, sclera anicteric
Neck: No JVD
CV: Regular rate and rhythm, occasional PAC
Lungs: Supplemental O2 via nasal cannula
Abd: S/ND
Ext: No LE edema
Skin: Warm, dry
Neuro: Non-focal
[2024-08-15] MEDS: FLAGYL 500 MG 100 IV ×2 (11:19→17:52)
--- NOTE | 2024-08-15 12:00 | PTCARENOTE ---
Pt continues to rest quietly, no changes from previous assessment findings. Frequent comfort care/repositioning provided.
[2024-08-15] MEDS: LANOXIN 125 MCG TUBE (12:21)
[2024-08-15 12:30] LABS: Glucose - Point of Care 246 mg/dl (70-99)
--- NOTE | 2024-08-15 12:47 | PTCARENOTE ---
Phone call received from pt's Son 'Sterling' updated as requested. Family to bring in additional Ure-Na.
--- NOTE | 2024-08-15 16:10 | PTCARENOTE ---
Pt conts to rest quietly, no changes. Son here to visit. Updated and questions answered
[2024-08-15] MEDS: URE-NA TUBE (16:58)
[2024-08-15 18:05] LABS: Glucose - Point of Care 233 mg/dl (70-99)
--- NOTE | 2024-08-15 20:00 | PTCARENOTE ---
Rec'd pt with eyes open, non verbal, moves Rhand & r foot, no mpvement noted left side, SR/SR w/ pacs'bp stable, weak distal pulses, + edema, RA, lungs decr, sat 96, + bowel sounds, rectal trumpet to str drainage bag draining brown liquid stool,
Peg- [employer] at 65ml/hr, 35ml/hr h20 flush, abd obese, bautista draining laila urine
[2024-08-15] MEDS: TYLENOL #3 1 TABLET TUBE (21:36)
[2024-08-15] MEDS: NOVOLOG FLEXPEN-MODERATE RESISTANCE 1 UNITS SC (23:29)
[2024-08-15 23:32] LABS: Glucose - Point of Care 157 mg/dl (70-99)
[2024-08-16] VITALS (13 sets, daily range): BP systolic 104–137; BP diastolic 52–76; BMI 28.9
--- NOTE | 2024-08-16 00:12 | PTCARENOTE ---
sys reviewed, changes noted, CHG bath done, linens changed
[2024-08-16] MEDS: FLAGYL 500 MG 100 IV ×3 (01:06→17:34)
[2024-08-16 02:25] LABS: Hematocrit 31.8 % (37.0-47.0); Hemoglobin 9.7 g/dL (12.0-16.0); Mean Corp Hgb Conc. 30.5 g/dL (33.0-37.0); Mean Corpuscular Hgb 29.3 pg (27.0-31.0); Mean Corpuscular Volume 96.1 fL (81.0-99.0); Mean Platelet Volume 8.9 fL (7.4-10.4); Platelet Count 380 10^3/uL (130-400); Red Blood Cell Count 3.31 10^6/uL (4.20-5.40); Red Cell Dist. Width 17.3 % (11.5-14.5); White Blood Cell Count 13.9 10^3/uL (4.8-10.8)
[2024-08-16 02:41] LABS: Blood Urea Nitrogen 22 mg/dl (7-17); Calcium 8.9 mg/dl (8.4-10.2); Carbon Dioxide 28 mmol/L (22-30); Chloride 112 mmol/L (98-107); Estimated Creatinine Clearance 87 ml/min; Glucose 218 mg/dl (70-99); Magnesium 1.7 mg/dl (1.6-2.3); Phosphorus 3.9 mg/dl (2.5-4.5); Potassium 4.3 mmol/L (3.5-5.1); Sodium 147 mmol/L (135-145); eGFR > 60.00
[2024-08-16 02:55] LABS: Digoxin < 0.4 ng/ml (0.8-2.0)
[2024-08-16] MEDS: MAXIPIME 1000 MG IV ×4 (03:41→21:56)
[2024-08-16] MEDS: STERILE WATER FOR INJECTION 10 ML IV ×4 (03:41→21:56)
[2024-08-16] MEDS: NOVOLOG FLEXPEN 5 UNITS SC (05:53)
[2024-08-16] MEDS: NOVOLOG FLEXPEN-MODERATE RESISTANCE 3 UNITS SC ×3 (05:53→17:34)
[2024-08-16] MEDS: SYNTHROID TUBE ×2 (05:58→06:10)
[2024-08-16 06:02] LABS: Glucose - Point of Care 219 mg/dl (70-99)
--- NOTE | 2024-08-16 06:11 | PTCARENOTE ---
feeding tube clogged, tube fdg off
[2024-08-16] MEDS: BETAPACE TUBE (08:27)
[2024-08-16] MEDS: ROBITUSSIN TUBE (08:28)
[2024-08-16] MEDS: THERAGRAN TUBE (08:28)
[2024-08-16] MEDS: SYMMETREL SYRUP TUBE (08:28)
[2024-08-16] MEDS: GLUCOPHAGE TUBE (08:28)
[2024-08-16] MEDS: TYLENOL ORAL SOLUTION TUBE (08:28)
[2024-08-16] MEDS: ELIQUIS TUBE (08:28)
[2024-08-16] MEDS: PREVACID TUBE (08:28)
[2024-08-16] MEDS: LANTUS SC (08:29)
[2024-08-16] MEDS: BACTROBAN 2% OINTMENT 1 APPLIC TOPICAL (08:29)
[2024-08-16] MEDS: DAKIN'S SOLUTION 0.125% 1/4 STRENGTH 473 ML TOPICAL ×2 (08:29→19:52)
--- NOTE | 2024-08-16 08:52 | PTCARENOTE ---
Received in report peg tube clogged and TF off prior to shift start. Upon assessment, unable to flush peg tube as well. PEG secured @ 6cm, no obvious signs of leakage. Unable to admin AM meds and TF remains off. MD team- Dr. Lau, GI, and NIA MAK
made aware.
--- NOTE | 2024-08-16 09:36 | W.PN.UPDATE ---
Addendum entered and electronically signed by OBDULIO Cates 08/16/24 12:55:
reviewed with Dr. Lau -- pt was clogged and now declogged and functioning. No need for peg change.
Original Note:
Update Note
Progress Note Update
called to see for clogged peg-- noted with enfit tube. -- enfit cap removed and tube brushed to relieve clog. Tube now flushing without difficult. Tube remains at 6 at end of bumper. Will sign off call with questions.
[2024-08-16] MEDS: LANTUS 0.1 UNITS SC (10:16)
[2024-08-16] MEDS: TYLENOL ORAL SOLUTION 650 MG TUBE ×2 (10:17→16:05)
[2024-08-16] MEDS: ROBITUSSIN 200 MG TUBE ×4 (10:17→21:57)
[2024-08-16] MEDS: BETAPACE 80 MG TUBE ×2 (10:17→19:51)
[2024-08-16] MEDS: ELIQUIS 5 MG TUBE ×2 (10:17→19:52)
[2024-08-16] MEDS: THERAGRAN 1 TABLET TUBE (10:17)
[2024-08-16] MEDS: GLUCOPHAGE 500 MG TUBE ×2 (10:17→16:05)
[2024-08-16] MEDS: PREVACID 15 MG TUBE (10:17)
[2024-08-16] MEDS: SYMMETREL SYRUP 150 MG TUBE ×2 (10:18→19:52)
--- NOTE | 2024-08-16 10:21 | W.PN.HOSP.TC ---
Today's Communication/Plan
-
see bold
Assessment / Plan
Assessment / Plan
HPI: 79 female functional quadriplegia since her stroke a year ago January 2023 right hemispheric with residual left hemiparesis nonverbal dysphagia s/p G-tube, history lytic treatment complicated with need for craniotomy, paroxysmal A-fib,
hypertension dec-ivrzwsz-bsxzfmqjh diabetes, hypothyroidism, sacral decub ulcer, BIBEMS d/t son concern patient short of breath, requiring 4L on ED eval. Per son EMIGDIO Katz, there was an illness running through the family that he believed patient
caught resulting in an episode nausea vomiting. Patient became progressively dyspneic prompting EMS call. Along with 4L requirement, ED eval notable for Fever 101.4 sinus tachycardia, leukocytosis, and lactic acidosis 3.7 concerning for severe
sepsis. BP stable.
PLAN:
#Sepsis Aspiration Pneumonia (fever tachycardia Leukocytosis)
#Acute Hypoxic Respiratory Failure
CXR appreciated left basilar/lower lobe pna
Initial Lactic acid 3.7 since resolved following IVF
COVID Flu Neg, blood cultures NGTD
Status post vancomycin, Zosyn, then cefepime, Augmentin, then doxycycline, then back to cefepime and Flagyl
Pulmonology and ID following, continue cefepime/Flagyl
#Paroxysmal afib
#Developed Afib RVR later in admission
Cont Eliquis, digoxin (dig level appreciated wnl), sotalol
ECHO appreciated preserve EF 55-60% no significant valve abn's
Appreciate cardiology input, continue oral Cardizem as needed
#Increased Tachypnea 08/13
#Suspect Iatrogenic Fluid overload Pulm Edema
Previously IVF given for low pressures since resolved
Weight gain noted, repeat CXR noted worsening LLL PNA vs alveolar edema
trial Lasix given 40 mg with significant urine output noted, BNP also significantly elevated 6000s
IV lasix 40 mg daily completed after weaning off oxygen supplementation to room air as above.
#Hx Stroke lytic therapy complicated with craniotomy
#Functional Quadriplegia
#dysphagia s/p G-tube
Meds via tube, PPI
GI eval appreciated Tube re-positioned with tube check imaging confirmed optimum position later repeated d/t RN concern resistance with flushing, remains in satisfactory position 08/15/24
08/16/24�G tube declogged by GI, functioning fine
08/16/2024�VSE neg for aspiration but remains at high risk, ok for purees for comfort
#Mild Hypernatremia
Increase free water flushes to 50 cc/h
Home Ur-Na supplement for hyponatremia placed on hold
#HTN
Hold home losartan d/t low normal pressures sepsis concerns.
Will consider resuming if BP elevates
#Intermittent Hypotension likely d/t hypovolemia exacerbated by diarrhea
Treated with IVF support since discontinued d/t iatrogenic fluid overload as above
Hypotension since resolved
Stool studies appreciated largely neg including Cdiff and Norovirus, shiga toxin, likely side effect abx
Rectal tube in place but diarrhea output appears to be improving
#DM
Recent A1c 6.09 Jun 2024
Initial hold home Metformin d/t Lactic Acidosis since resolved
Metformin resumed and increased to 500 mg BID d/t uncontrolled DM
Insulin adjusted
#Hypothyroidism
Cont home Synthroid
TSH wnl
#Stage IV sacral decubitus wound
Continue wound care
Rojas placed to keep wound clean
Pain control cont home regimen Tylenol BID morning and afternoon followed by Tylenol #3 at bedtime.
DVT prophylaxis�Eliquis
Full code
Updated patient's son Sterling POJared 08/16
Total time spent to see the patient on the floor, examine the patient, review data and lab results, discuss treatment plan with patient, nursing staff around 52 minutes.
Physical Exam
General: Appears chronically debilitated, no acute distress
HEENT: Normocephalic atraumatic
NECK: Supple. No JVD Carotid Bruits
RESPIRATORY: Clear to auscultation. Stable respiratory status on room air
CVS: S1, S2 tachy. No murmur, rub or gallop.
ABDOMEN: Soft, non-tender. No distension. BS+/normal. PEG-tube present
EXTREMITIES: No peripheral cyanosis or edema.
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
Anticipated Discharge: 24 - 48 hours
Subjective/Interval History
-
Date of Service: August 16, 2024
Patient is nonverbal, she is not answering questions or following commands. No fever, no vomiting.
Objective Data
-
Labs:
Laboratory Results
08/16/24
02:16
WBC 13.9 H
Hgb 9.7 L
Hct 31.8 L
Plt Count 380
Sodium 147 H
Potassium 4.3
Chloride 112 H
Carbon Dioxide 28
BUN 22 H
Creatinine 0.4 L
Glucose 218 H
Calcium 8.9
Vital Signs:
Vital Signs
Temp Pulse Resp BP Pulse Ox
98 F 87 33 137/58 97
08/16/24 07:30 08/16/24 10:17 08/16/24 08:00 08/16/24 10:17 08/16/24 08:44
I&O
08/15/24 08/16/24 08/17/24
06:59 06:59 06:59
Intake Total 1090 / 1090 2760 / 2760
Output Total 2605 / 2605 1300 / 1300 125 / 125
Balance -1515 / -1515 1460 / 1460 -125 / -125
--- NOTE | 2024-08-16 10:49 | PTCARENOTE ---
GI PA to bedside to assess peg tube; able to unclog. AM meds admin post tube unclogged-see OCT.
--- NOTE | 2024-08-16 11:30 | W.PN.ID1 ---
Date of Service
Date of Service: August 16, 2024
Today's Communication
Continue cefepime ane metronidazole for now.
Assessment / Plan
# Aspiration pneumonia
# Leukocytosis trending down
# Hx CVA/dysphagia with PEG
-Oxygen status 100% at 2L
-C. diff negative, norovirus negatoive
- Leukocytosis trending up
- RR remains 30's - 40's.
- Repeat CXR with increased LLL density.
- Repeat bcx x2 neg to date
-Continue cefepime 1g IV q6h (d3)
- metronidazole 500mg IV q8 (d2
- Follow wbc
# Afib with RVR, rate controlled
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
A-fib anticoagulated with Eliquis
Hemorrhagic stroke status post craniotomy in January 2023 and right side of skull left open
Chronic aphasia and left-sided weakness
Functional quadriplegia
Status post PEG tube feeding
History of the right upper extremity DVT requiring thrombectomy
Dyslipidemia
Insulin-dependent diabetes mellitus
Hypothyroidism
Anxiety and mood disorder
Chronic sacral decubitus, stage 4
Shingles
Chief Complaint
-: Pneumonia
Subjective / Review of Systems
Resting comfortably.
Vital Signs / Physical Exam
Vital Signs
Vital Signs
Temp Pulse Resp BP Pulse Ox
98 F 87 33 137/58 97
08/16/24 07:30 08/16/24 10:17 08/16/24 08:00 08/16/24 10:17 08/16/24 08:44
Physical Exam
Constitutional: No Acute Distress, Comfortable and Non-toxic
Cardiovascular: Regular Rate and S1/S2
Pulmonary: Clear (anteriorly)
Gastrointestinal: Soft, Non Tender and Non Distended
Extremities: Negative Edema
Objective Data
Lab Data
Lab Results
08/16/24 02:16
08/16/24 02:16
Estimated Creat Clear 87 ml/min 08/16/24 02:16
Lactic Acid Cancelled 08/12/24 06:15
Total Bilirubin 0.6 mg/dl (0.2-1.3) 08/10/24 09:12
AST 21 U/L (14-36) 08/10/24 09:12
ALT 19 U/L (0-35) 08/10/24 09:12
Alkaline Phosphatase 78 U/L (38-126) 08/10/24 09:12
Most recent labs reviewed.
Micro Results:
08/15/24 11:03 Blood Culture - Preliminary
Blood/Venous No Growth in 24 hours- Final report to follow
08/15/24 11:21 Blood Culture - Preliminary
Blood/Venous No Growth in 24 hours- Final report to follow
08/12/24 12:39 Salmonella/Shigella Culture - Final
Feces/Stool No Salmonella, Shigella, Aeromonas or Plesiomonas species
isolated.
Campylobacter Culture - Final
No Campylobacter species isolated.
Shiga Toxin Test - Final
No E. coli Shiga Toxin 1 or 2 detected.
08/10/24 08:27 Blood Culture - Final
Blood/Venous No Growth - Final Report
08/10/24 08:25 Blood Culture - Final
Blood/Venous No Growth - Final Report
08/12/24 12:39 Cryptosporidium/Giardia - Final
Feces/Stool Negative for Cryptosporidium and/or Giardia Lamblia
antigens.
C. difficile GDH Antigen & Toxins - Final
Negative for toxigenic C.difficile
- Final
Negative for Norovirus GI and GII.
08/11/24 10:14 MRSA Screen - Final
Nose No Methicillin Resistant Staphylococcus aureus isolated.
08/10/24 08:25 Influenza Types A & B (JENA) - Final
Nasal Swab Negative for Influenza A & B, NAAT
Negative results must be combined with clinical observations
and patient history.
Nucleic Acid Amplification test (NAAT)performed on the
[employer] platform.
08/10/24 CXR: Findings suspicious for left basilar/left lower lobe pneumonia.
08/13/24 CXR: Large amount of asymmetric opacity in the left mid lung and left lower lung which appears to have increased in size and density since 08/10/2024. Diagnostic possibilities are (1) SEVERE LEFT LOWER LOBE PNEUMONIA (especially if there
are signs/symptoms of pulmonary infection) or (2) asymmetric alveolar pulmonary edema. Suspected small bilateral pleural effusions.
--- NOTE | 2024-08-16 11:56 | W.PN.UPDATE ---
Update Note
Progress Note Update
Cardiac status has been stable. Patient currently off the floor. Rhythm has been sinus. Managed elsewhere. Would continue and not alter outpatient management with sotalol and digoxin. Level acceptable. Anticoagulation noted in would continue.
Will sign off. Please reconsult us if new cardiac issues develop.
[2024-08-16] MEDS: LANOXIN 125 MCG TUBE (12:31)
[2024-08-16] MEDS: NOVOLOG FLEXPEN 7 UNITS SC ×2 (12:32→17:35)
[2024-08-16 12:40] LABS: Glucose - Point of Care 230 mg/dl (70-99)
--- NOTE | 2024-08-16 14:02 | CM ---
CM following re: discharge planning.
Discussed in Rounds, reviewed pt's chart, met with pt.
Pt lives alone in a condo, 2 step to enter, has 2 supportive sons and receives 24/7 caregiver services under waiver program provided by [facility]. Per son, pt is bed bound, requires total care. Per son, pt will return back home with
resumptions of [facility] 24/7 caregiver services, [facility] services and family support.
[facility] discharge instructions fax: [phone]
D/C plan: return back home with resumptions of 24/7 caregiver services provided by [facility], [facility] services and family support. Pt will need ambulance transport.
CM will follow with discharge plan updates as hospitalization progresses
--- NOTE | 2024-08-16 15:00 | PTCARENOTE ---
Pt.'s son updated via phone. Son expressed concern about ongoing issues with pt.'s peg tube @ home and in hospital. Pt.'s son requested this RN to request MD to 'change peg tube.' Request relayed to MD. Peg tube currently working w no issue post
GI to bedside this AM.
--- NOTE | 2024-08-16 15:29 | PTOTSP ---
Video Swallow Examination
While no aspiration was observed during study, risk is elevated given cognitive status/dependence for feeding, reduced oral motor coordination and difficulty initiating AP transfers.
Recommend
1. Due to cognitive status and reduced oral motor coordination difficulty initiating AP transfers, patient is at elevated risk for aspiration.
2. Recommend continue main nutritional support and medications via PEG tube.
3. Allow Level 4 (puree) and thin liquids for comfort
4. Supervision/assist to feed required for any oral intake.
5. Upright with intake.
6. Aspiration precautions.
No skilled ST indicated at this time.
[2024-08-16 17:44] LABS: Glucose - Point of Care 228 mg/dl (70-99)
[2024-08-16] MEDS: TYLENOL #3 1 TABLET TUBE (21:57)
--- NOTE | 2024-08-16 22:58 | PTCARENOTE ---
Patient assessed. Nonverbal at baseline. Coaxed to open her mouth for mouth care. The patient moves her right arm and rt leg. No movement to the left side. Sinus rhythm on the monitor. Diminished breath sounds. SpO2 at 98% on room air. +ALEXANDRA. Elis
farm TF at 65ml/hr via PEG. Patient has a rectal trumpet that's draining stapleton stool. Leaking noted becca-trumpet. Patient cleansed. Rojas catheter care provided. Patient turned and repositioned.
[2024-08-17] VITALS (12 sets, daily range): BP systolic 104–171; BP diastolic 47–87; BMI 28.9
[2024-08-17 00:01] LABS: Glucose - Point of Care 150 mg/dl (70-99)
[2024-08-17] MEDS: NOVOLOG FLEXPEN-MODERATE RESISTANCE 1 UNITS SC ×2 (00:05→06:48)
[2024-08-17] MEDS: NOVOLOG FLEXPEN 7 UNITS SC ×3 (00:06→12:16)
--- NOTE | 2024-08-17 00:06 | PTCARENOTE ---
Patient reassessed. No changes.
[2024-08-17] MEDS: FLAGYL 500 MG 100 IV ×3 (02:45→18:10)
[2024-08-17] MEDS: MAXIPIME 1000 MG IV ×4 (04:50→21:38)
[2024-08-17] MEDS: STERILE WATER FOR INJECTION 10 ML IV ×4 (04:51→21:38)
[2024-08-17] MEDS: SYNTHROID 100 MCG TUBE (06:55)
[2024-08-17 06:57] LABS: Glucose - Point of Care 186 mg/dl (70-99)
[2024-08-17] MEDS: BACTROBAN 2% OINTMENT 1 APPLIC TOPICAL (07:30)
[2024-08-17] MEDS: DAKIN'S SOLUTION 0.125% 1/4 STRENGTH 473 ML TOPICAL ×2 (07:30→21:34)
--- NOTE | 2024-08-17 07:30 | PTCARENOTE ---
Received pt @ change of shift; assessment per charting- see MAR. Complete hygiene care provided and repositioned per protocol. Safe environment maintained.
[2024-08-17] MEDS: TYLENOL ORAL SOLUTION 650 MG TUBE ×2 (07:31→15:57)
[2024-08-17] MEDS: LANTUS 0.13 UNITS SC (07:31)
[2024-08-17] MEDS: ROBITUSSIN 200 MG TUBE ×4 (07:31→21:39)
[2024-08-17] MEDS: PREVACID 15 MG TUBE (07:32)
[2024-08-17] MEDS: ELIQUIS 5 MG TUBE ×2 (07:32→21:35)
[2024-08-17] MEDS: GLUCOPHAGE 500 MG TUBE ×2 (07:32→16:00)
[2024-08-17] MEDS: THERAGRAN 1 TABLET TUBE (07:32)
[2024-08-17] MEDS: BETAPACE 80 MG TUBE ×2 (07:32→21:37)
[2024-08-17] MEDS: SYMMETREL SYRUP 150 MG TUBE ×2 (07:32→21:35)
[2024-08-17 08:08] LABS: Hematocrit 31.1 % (37.0-47.0); Hemoglobin 9.6 g/dL (12.0-16.0); Mean Corp Hgb Conc. 30.9 g/dL (33.0-37.0); Mean Corpuscular Hgb 29.6 pg (27.0-31.0); Mean Platelet Volume 9.4 fL (7.4-10.4); Platelet Count 407 10^3/uL (130-400); Red Blood Cell Count 3.24 10^6/uL (4.20-5.40); Red Cell Dist. Width 17.2 % (11.5-14.5); White Blood Cell Count 11.8 10^3/uL (4.8-10.8)
[2024-08-17 08:56] LABS: Blood Urea Nitrogen 21 mg/dl (7-17); Calcium 8.9 mg/dl (8.4-10.2); Carbon Dioxide 25 mmol/L (22-30); Chloride 110 mmol/L (98-107); Estimated Creatinine Clearance 87 ml/min; Glucose 222 mg/dl (70-99); Magnesium 1.6 mg/dl (1.6-2.3); Phosphorus 4.1 mg/dl (2.5-4.5); Potassium 4.4 mmol/L (3.5-5.1); Sodium 143 mmol/L (135-145); eGFR > 60.00
--- NOTE | 2024-08-17 09:10 | W.PN.HOSP.TC ---
Today's Communication/Plan
-
Discharge tomorrow
Assessment / Plan
Assessment / Plan
HPI: 79 female functional quadriplegia since her stroke a year ago January 2023 right hemispheric with residual left hemiparesis nonverbal dysphagia s/p G-tube, history lytic treatment complicated with need for craniotomy, paroxysmal A-fib,
hypertension ign-ehmuckl-[id number] diabetes, hypothyroidism, sacral decub ulcer, BIBEMS d/t son concern patient short of breath, requiring 4L on ED eval. Per son EMIGDIO Katz, there was an illness running through the family that he believed patient
caught resulting in an episode nausea vomiting. Patient became progressively dyspneic prompting EMS call. Along with 4L requirement, ED eval notable for Fever 101.4 sinus tachycardia, leukocytosis, and lactic acidosis 3.7 concerning for severe
sepsis. BP stable.
PLAN:
#Sepsis Aspiration Pneumonia (fever tachycardia Leukocytosis)
#Acute Hypoxic Respiratory Failure
CXR appreciated left basilar/lower lobe pna
Initial Lactic acid 3.7 since resolved following IVF
COVID Flu Neg, blood cultures NGTD
Status post vancomycin, Zosyn, then cefepime, Augmentin, then doxycycline, then back to cefepime and Flagyl
Pulmonology and ID following, continue cefepime/Flagyl while in the hospital
Can transition to cefdinir and Flagyl upon discharge for 2 more days
#Paroxysmal afib
#Developed Afib RVR later in admission
Cont Eliquis, digoxin (dig level appreciated wnl), sotalol
ECHO appreciated preserve EF 55-60% no significant valve abn's
Appreciate cardiology input, continue oral Cardizem as needed
#Increased Tachypnea 08/13
#Suspect Iatrogenic Fluid overload Pulm Edema
Previously IVF given for low pressures since resolved
Weight gain noted, repeat CXR noted worsening LLL PNA vs alveolar edema
trial Lasix given 40 mg with significant urine output noted, BNP also significantly elevated 6000s
IV lasix 40 mg daily completed after weaning off oxygen supplementation to room air as above.
#Hx Stroke lytic therapy complicated with craniotomy
#Functional Quadriplegia
#dysphagia s/p G-tube
Meds via tube, PPI
GI eval appreciated Tube re-positioned with tube check imaging confirmed optimum position later repeated d/t RN concern resistance with flushing, remains in satisfactory position 08/15/24
08/16/24�G tube declogged by GI, functioning fine
08/16/2024�VSE neg for aspiration but remains at high risk, ok for purees for comfort
#Mild Hypernatremia
Resolved with increasing free water flushes to 50 cc/h
Home Ur-Na supplement for hyponatremia placed on hold
#HTN
Hold home losartan d/t low normal pressures sepsis concerns, patient has been normotensive off of it, would recommend discontinuing upon discharge
Will consider resuming if BP elevates
#Intermittent Hypotension likely d/t hypovolemia exacerbated by diarrhea
Treated with IVF support since discontinued d/t iatrogenic fluid overload as above
Hypotension since resolved
Stool studies appreciated largely neg including Cdiff and Norovirus, shiga toxin, likely side effect abx
Rectal tube in place but diarrhea output appears to be improving
#DM
Recent A1c 6.09 Jun 2024
Initial hold home Metformin d/t Lactic Acidosis since resolved
Metformin resumed and increased to 500 mg BID d/t uncontrolled DM
Insulin adjusted
#Hypothyroidism
Cont home Synthroid
TSH wnl
#Stage IV sacral decubitus wound
Continue wound care
Rojas placed to keep wound clean
Pain control cont home regimen Tylenol BID morning and afternoon followed by Tylenol #3 at bedtime.
DVT prophylaxis�Eliquis
Full code
Updated patient's son Sterling POA 08/17
Total time spent to see the patient on the floor, examine the patient, review data and lab results, discuss treatment plan with patient, nursing staff around 42 minutes.
Physical Exam
General: Appears chronically debilitated, no acute distress
HEENT: Normocephalic atraumatic
NECK: Supple. No JVD Carotid Bruits
RESPIRATORY: Clear to auscultation. Stable respiratory status on room air
CVS: S1, S2 tachy. No murmur, rub or gallop.
ABDOMEN: Soft, non-tender. No distension. BS+/normal. PEG-tube present
EXTREMITIES: No peripheral cyanosis or edema.
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
Anticipated Discharge: Within 24 hours
Subjective/Interval History
-
Date of Service: August 17, 2024
No acute events overnight. No fever, no vomiting. Patient is tolerating her tube feeds.
Objective Data
-
Labs:
Laboratory Results
08/17/24
07:44
WBC 11.8 H
Hgb 9.6 L
Hct 31.1 L
Plt Count 407 H
Sodium 143
Potassium 4.4
Chloride 110 H
Carbon Dioxide 25
BUN 21 H
Creatinine 0.4 L
Glucose 222 H
Calcium 8.9
Vital Signs:
Vital Signs
Temp Pulse Resp BP Pulse Ox
97.6 F 88 33 120/54 98
08/17/24 08:17 08/16/24 20:00 08/16/24 20:00 08/16/24 19:51 08/16/24 20:50
I&O
08/16/24 08/17/24 08/18/24
06:59 06:59 06:59
Intake Total 2760 / 2760 2040 / 2040
Output Total 1300 / 1300 1125 / 1125
Balance 1460 / 1460 915 / 915
--- NOTE | 2024-08-17 10:38 | W.PN.ID1 ---
Date of Service
Date of Service: August 17, 2024
Today's Communication
Can transition to cefdinir 500mg tube bid and metronidazole 500mg bid x 3 more days.
Assessment / Plan
# Aspiration pneumonia
# Leukocytosis resolving
# Hx CVA/dysphagia with PEG
-Off oxygen
-C. diff negative, norovirus negatiive
- Leukocytosis resolving
- Repeat bcx x2 neg to date
-Continue cefepime 1g IV q6h (d3)
- metronidazole 500mg IV q8 (d3)
- Can transition to cefdinir 500mg tube bid and metronidazole 500mg bid x 3 more days.
# Afib with RVR, rate controlled
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
A-fib anticoagulated with Eliquis
Hemorrhagic stroke status post craniotomy in January 2023 and right side of skull left open
Chronic aphasia and left-sided weakness
Functional quadriplegia
Status post PEG tube feeding
History of the right upper extremity DVT requiring thrombectomy
Dyslipidemia
Insulin-dependent diabetes mellitus
Hypothyroidism
Anxiety and mood disorder
Chronic sacral decubitus, stage 4
Shingles
Chief Complaint
-: Pneumonia
Subjective / Review of Systems
Resting comfortably
Vital Signs / Physical Exam
Vital Signs
Vital Signs
Temp Pulse Resp BP Pulse Ox
97.6 F 88 33 120/54 98
08/17/24 08:17 08/16/24 20:00 08/16/24 20:00 08/16/24 19:51 08/16/24 20:50
Physical Exam
Constitutional: No Acute Distress and Comfortable
Pulmonary: Clear (anteriorly)
Gastrointestinal: Soft, Non Tender and Non Distended
Extremities: Negative Edema
Objective Data
Lab Data
Lab Results
08/17/24 07:44
08/17/24 07:44
Estimated Creat Clear 87 ml/min 08/17/24 07:44
Lactic Acid Cancelled 08/12/24 06:15
Total Bilirubin 0.6 mg/dl (0.2-1.3) 08/10/24 09:12
AST 21 U/L (14-36) 08/10/24 09:12
ALT 19 U/L (0-35) 08/10/24 09:12
Alkaline Phosphatase 78 U/L (38-126) 08/10/24 09:12
Most recent labs reviewed.
Micro Results:
08/15/24 11:03 Blood Culture - Preliminary
Blood/Venous No Growth in 24 hours- Final report to follow
08/15/24 11:21 Blood Culture - Preliminary
Blood/Venous No Growth in 24 hours- Final report to follow
08/12/24 12:39 Salmonella/Shigella Culture - Final
Feces/Stool No Salmonella, Shigella, Aeromonas or Plesiomonas species
isolated.
Campylobacter Culture - Final
No Campylobacter species isolated.
Shiga Toxin Test - Final
No E. coli Shiga Toxin 1 or 2 detected.
08/10/24 08:27 Blood Culture - Final
Blood/Venous No Growth - Final Report
08/10/24 08:25 Blood Culture - Final
Blood/Venous No Growth - Final Report
08/12/24 12:39 Cryptosporidium/Giardia - Final
Feces/Stool Negative for Cryptosporidium and/or Giardia Lamblia
antigens.
C. difficile GDH Antigen & Toxins - Final
Negative for toxigenic C.difficile
- Final
Negative for Norovirus GI and GII.
08/11/24 10:14 MRSA Screen - Final
Nose No Methicillin Resistant Staphylococcus aureus isolated.
08/10/24 08:25 Influenza Types A & B (JENA) - Final
Nasal Swab Negative for Influenza A & B, NAAT
Negative results must be combined with clinical observations
and patient history.
Nucleic Acid Amplification test (NAAT)performed on the
[employer] platform.
08/10/24 CXR: Findings suspicious for left basilar/left lower lobe pneumonia.
08/13/24 CXR: Large amount of asymmetric opacity in the left mid lung and left lower lung which appears to have increased in size and density since 08/10/2024. Diagnostic possibilities are (1) SEVERE LEFT LOWER LOBE PNEUMONIA (especially if there
are signs/symptoms of pulmonary infection) or (2) asymmetric alveolar pulmonary edema. Suspected small bilateral pleural effusions.
Care Review
Plan reviewed with: Physician (Dr. Lau)
[2024-08-17] MEDS: LANOXIN 125 MCG TUBE (12:15)
[2024-08-17] MEDS: NOVOLOG FLEXPEN-MODERATE RESISTANCE 3 UNITS SC (12:15)
[2024-08-17 12:25] LABS: Glucose - Point of Care 232 mg/dl (70-99)
--- NOTE | 2024-08-17 14:30 | CM ---
Addendum entered by Leo Bailon 08/17/24 16:33:
Please fax discharge instructions with discharge summary to [facility] at [phone]
Addendum entered by Leo Bailon 08/17/24 14:44:
KRISTIAN spoke to pt's son Sterling and he stated he is aware of his mother discharge tomorrow, expressed his agreement. IMM reviewed placed on chart, son has a copy.
Pt's son stated he is aware that [facility] caregiver will be at pt's home tomorrow at 12:00 p.m. and ambulance after 12:00 p.m. pharmacy picking technician time will be fine. Pt's son stated that RN from [facility] is aware of pt's discharge tomorrow and
she will visit the pt next day of discharge. Per son, [facility] will resume services and there is no needs for a referral.
UC to arrange ambulance transportation with pharmacy picking technician after 12:00 p.m. PMNC completed and left on the chart.
D/C plan: return back home with resumptions of 24/7 caregiver services provided by [facility], [facility] services and family support.
Original Note:
KRISTIAN following re: discharge planning.
Discussed in Rounds, reviewed pt's chart, met with pt.
Pt lives alone in a condo, 2 step to enter, has 2 supportive sons and receives 24/7 caregiver services under waiver program provided by [facility]. Per son, pt is bed bound, requires total care. Per son, pt will return back home with
resumptions of [facility] 24/7 caregiver services, [facility] services and family support.
According to pt will be discharged home tomorrow and discussed pt's discharge with pt's son.
KRISTIAN called pt's son Sterling and son Renee and have to leave a message.
KRISTIAN spoke to [facility] senior human resources representative Judson and she confirmed that pt's caregiver will be at pt's condo tomorrow at 12:00 p.m. and pt will be accepted for services after 12:00 p.m.
KRISTIAN tried to fax a referral to [facility] services [phone] fax number incorrect. CM called [facility] [email or web address] [phone] and [phone] to obtain a fax number and have to leave a message. Per [facility] senior human resources representative TRIXIE Roper from [facility]
health will visit the pt next day of discharge.
UC to arrange ambulance transportation with pharmacy picking technician after 12:00 p.m. PMNC completed and left on the chart.
D/C plan: return back home with resumptions of 24/7 caregiver services provided by [facility], [employer] services and family support.
CM will follow to assist pt with discharge home tomorrow
--- NOTE | 2024-08-17 15:58 | PN.CDI ---
CDI
- -
CDI:
Physician Documentation Request
Admit Date: 08/10/24 12:27
Dear Doctor Do,
08/17 Hospitalist PN: 'Suspect Iatrogenic Fluid overload Pulm Edema
Previously IVF given for low pressures since resolved
Weight gain noted, repeat CXR noted worsening LLL PNA vs alveolar edema
trial Lasix given 40 mg with significant urine output noted, BNP also significantly elevated 6000s
IV lasix 40 mg daily completed after weaning off oxygen supplementation to room air as above.'
Clarify which of the following accurately represents the acuity of the pulmonary edema. Possible options might include:
____ Acute
Chronic
____ Other
Use of terms such as suspected, likely, concern for, or probable (associated with a specific diagnosis that is being evaluated, monitored, or treated as if it exists) are acceptable and can be coded in the inpatient setting, when documented at the
time of discharge.
Thank you,
Leslie Nettles RN, BSN
CDI Specialist
Available via [employer] text
Please use your independent medical judgment in providing your response.
[2024-08-17] MEDS: NOVOLOG FLEXPEN 8 UNITS SC (18:10)
[2024-08-17] MEDS: NOVOLOG FLEXPEN-MODERATE RESISTANCE 8 UNITS SC (18:11)
[2024-08-17 18:20] LABS: Glucose - Point of Care 221 mg/dl (70-99)
--- NOTE | 2024-08-17 19:04 | PTCARENOTE ---
Report given to 4E RN. Static air overlay placed on bed prior to transport. Pt. transported via bed to rm [phone] on [address] p[address] w belongings and family member. No further needs from this RN.
[2024-08-17] MEDS: TYLENOL #3 1 TABLET TUBE (22:39)
[2024-08-18 00:30] LABS: Glucose - Point of Care 213 mg/dl (70-99)
[2024-08-18] MEDS: NOVOLOG FLEXPEN-MODERATE RESISTANCE 3 UNITS SC ×2 (00:30→06:12)
[2024-08-18] MEDS: NOVOLOG FLEXPEN 8 UNITS SC ×3 (00:30→11:56)
[2024-08-18] MEDS: FLUSH (NSS) 1 FLUSH IV (02:30)
[2024-08-18] MEDS: FLAGYL 500 MG 100 IV ×2 (02:30→10:20)
[2024-08-18 03:29] VITALS: BP 159/79
[2024-08-18] MEDS: FLUSH (NSS) 2 FLUSH IV (03:54)
[2024-08-18] MEDS: MAXIPIME 1000 MG IV ×2 (03:55→10:20)
[2024-08-18] MEDS: STERILE WATER FOR INJECTION 10 ML IV ×2 (03:55→10:20)
[2024-08-18 06:00] VITALS: BMI 29.9
[2024-08-18 06:09] LABS: Glucose - Point of Care 225 mg/dl (70-99)
[2024-08-18] MEDS: SYNTHROID 100 MCG TUBE (06:12)
[2024-08-18 07:30] VITALS: BP 159/79
[2024-08-18] MEDS: BACTROBAN 2% OINTMENT 1 APPLIC TOPICAL (08:45)
[2024-08-18] MEDS: DAKIN'S SOLUTION 0.125% 1/4 STRENGTH 473 ML TOPICAL (08:45)
[2024-08-18] MEDS: ROBITUSSIN 200 MG TUBE ×2 (08:50→11:55)
[2024-08-18] MEDS: TYLENOL ORAL SOLUTION 650 MG TUBE (08:50)
[2024-08-18] MEDS: BETAPACE 80 MG TUBE (08:51)
[2024-08-18] MEDS: SYMMETREL SYRUP 150 MG TUBE (08:51)
[2024-08-18] MEDS: PREVACID 15 MG TUBE (08:51)
[2024-08-18] MEDS: THERAGRAN 1 TABLET TUBE (08:51)
[2024-08-18 08:52] LABS: Hematocrit 33.5 % (37.0-47.0); Hemoglobin 10.5 g/dL (12.0-16.0); Mean Corp Hgb Conc. 31.3 g/dL (33.0-37.0); Mean Corpuscular Hgb 29.7 pg (27.0-31.0); Mean Corpuscular Volume 94.9 fL (81.0-99.0); Mean Platelet Volume 9.2 fL (7.4-10.4); Platelet Count 364 10^3/uL (130-400); Red Blood Cell Count 3.53 10^6/uL (4.20-5.40); Red Cell Dist. Width 17.1 % (11.5-14.5); White Blood Cell Count 12.8 10^3/uL (4.8-10.8)
[2024-08-18] MEDS: LANTUS 0.15 UNITS SC (08:52)
[2024-08-18] MEDS: GLUCOPHAGE 500 MG TUBE (08:52)
[2024-08-18] MEDS: ELIQUIS 5 MG TUBE (08:52)
--- NOTE | 2024-08-18 09:00 | W.PN.HOSP.TC ---
Today's Communication/Plan
-
Cleared by ID for discharge today
Assessment / Plan
Assessment / Plan
HPI: 79 female functional quadriplegia since her stroke a year ago January 2023 right hemispheric with residual left hemiparesis nonverbal dysphagia s/p G-tube, history lytic treatment complicated with need for craniotomy, paroxysmal A-fib,
hypertension uwp-wbcvuvp-yvujsxwyx diabetes, hypothyroidism, sacral decub ulcer, BIBEMS d/t son concern patient short of breath, requiring 4L on ED eval. Per son EMIGDIO Katz, there was an illness running through the family that he believed patient
caught resulting in an episode nausea vomiting. Patient became progressively dyspneic prompting EMS call. Along with 4L requirement, ED eval notable for Fever 101.4 sinus tachycardia, leukocytosis, and lactic acidosis 3.7 concerning for severe
sepsis. BP stable.
PLAN:
#Sepsis Aspiration Pneumonia (fever tachycardia Leukocytosis)
#Acute Hypoxic Respiratory Failure
CXR appreciated left basilar/lower lobe pna
Initial Lactic acid 3.7 since resolved following IVF
COVID Flu Neg, blood cultures NGTD
Status post vancomycin, Zosyn, then cefepime, Augmentin, then doxycycline, then back to cefepime and Flagyl
Pulmonology and ID following, continue cefepime/Flagyl while in the hospital
Can transition to cefdinir and Flagyl upon discharge for 2 more days
Medically stable for discharge, follow-up with PCP in 1 week
#Paroxysmal afib
#Developed Afib RVR later in admission
Cont Eliquis, digoxin (dig level appreciated wnl), sotalol
ECHO appreciated preserve EF 55-60% no significant valve abn's
Appreciate cardiology input, continue oral Cardizem as needed
#Increased Tachypnea 08/13
#Suspect Iatrogenic Fluid overload/ Acute Pulm Edema
Previously IVF given for low pressures since resolved
Weight gain noted, repeat CXR noted worsening LLL PNA vs alveolar edema
trial Lasix given 40 mg with significant urine output noted, BNP also significantly elevated 6000s
IV lasix 40 mg daily completed after weaning off oxygen supplementation to room air as above.
#Hx Stroke lytic therapy complicated with craniotomy
#Functional Quadriplegia
#dysphagia s/p G-tube
Meds via tube, PPI
GI eval appreciated Tube re-positioned with tube check imaging confirmed optimum position later repeated d/t RN concern resistance with flushing, remains in satisfactory position 08/15/24
08/16/24�G tube declogged by GI, functioning fine
08/16/2024�VSE neg for aspiration but remains at high risk, ok for purees for comfort
#Mild Hypernatremia
Resolved with increasing free water flushes to 50 cc/h
Home Ur-Na supplement for hyponatremia placed on hold
#HTN
Blood pressure elevated, resume home losartan 25 mg daily
#Hypomagnesemia
Magnesium 1.5, will discharge on magnesium oxide 500 mg twice a day
#Intermittent Hypotension likely d/t hypovolemia exacerbated by diarrhea
Treated with IVF support since discontinued d/t iatrogenic fluid overload as above
Hypotension since resolved
Stool studies appreciated largely neg including Cdiff and Norovirus, shiga toxin, likely side effect abx
Rectal tube in place but diarrhea output appears to be improving
#DM
Recent A1c 6.09 Jun 2024
Initial hold home Metformin d/t Lactic Acidosis since resolved
Metformin resumed and increased to 500 mg BID d/t uncontrolled DM
Insulin adjusted in the hospital
Son does not want to administer insulin to patient at home
Will discharge on glimepiride 4 mg daily, continue home metformin
#Hypothyroidism
Cont home Synthroid
TSH wnl
#Stage IV sacral decubitus wound
Continue wound care
Rojas placed to keep wound clean
Pain control cont home regimen Tylenol BID morning and afternoon followed by Tylenol #3 at bedtime.
DVT prophylaxis�Eliquis
Full code
Updated patient's son Sterling POA 08/17
Physical Exam
General: Appears chronically debilitated, no acute distress
HEENT: Normocephalic atraumatic
NECK: Supple. No JVD Carotid Bruits
RESPIRATORY: Clear to auscultation. Stable respiratory status on room air
CVS: S1, S2 tachy. No murmur, rub or gallop.
ABDOMEN: Soft, non-tender. No distension. BS+/normal. PEG-tube present
EXTREMITIES: No peripheral cyanosis or edema.
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
Anticipated Discharge: Today
Subjective/Interval History
-
Date of Service: August 18, 2024
No acute events overnight. No vomiting. Patient is tolerating her tube feeds. No fever.
Objective Data
-
Labs:
Laboratory Results
08/18/24
08:23
WBC 12.8 H
Hgb 10.5 L
Hct 33.5 L
Plt Count 364
Sodium Pending
Potassium Pending
Chloride Pending
Carbon Dioxide Pending
BUN Pending
Creatinine Pending
Glucose Pending
Calcium Pending
Vital Signs:
Vital Signs
Temp Pulse Resp BP Pulse Ox
97.6 F 91 20 159/79 96
08/18/24 07:30 08/18/24 08:51 08/18/24 07:30 08/18/24 08:51 08/18/24 08:33
I&O
08/17/24 08/18/24 08/19/24
06:59 06:59 06:59
Intake Total 2039 / 0 2860 / 2860
Output Total 1125 / 1125 1320 / 1320
Balance 915 / 915 1540 / 1540
[2024-08-18] MEDS: COZAAR 25 MG TUBE (09:11)
[2024-08-18 09:42] LABS: Blood Urea Nitrogen 18 mg/dl (7-17); Calcium 9.1 mg/dl (8.4-10.2); Carbon Dioxide 23 mmol/L (22-30); Chloride 105 mmol/L (98-107); Estimated Creatinine Clearance 89 ml/min; Glucose 227 mg/dl (70-99); Magnesium 1.5 mg/dl (1.6-2.3); Phosphorus 3.8 mg/dl (2.5-4.5); Potassium 4.3 mmol/L (3.5-5.1); Sodium 138 mmol/L (135-145); eGFR > 60.00
[2024-08-18] MEDS: LASIX 40 MG IV (10:19)
--- NOTE | 2024-08-18 10:44 | CM ---
MD entered order for discharge.
Pt continues with Peg tube feedings.
Spoke with son Sterling family has private care givers set up with [facility] and requested [facility]
Requested ambulance with 15 steps to enter home.Medical nec form completed.
Son agrees with IMM and discharge to home today.
[facility] with care givers and [facility] fax [phone] .
--- NOTE | 2024-08-18 11:16 | W.DCSUMMARY ---
Discharge Summary
Discharge Data
Date of Admission: 08/10/24
Date of Discharge: 08/18/24
-
Pending Results: No
Hospital Course
Discharge diagnosis:
Sepsis from aspiration pneumonia
Acute hypoxic respiratory failure
Atrial fibrillation with rapid ventricular response
Iatrogenic fluid overload with acute pulmonary edema
History of stroke status post lytic therapy and craniotomy
Functional quadriplegia
Hyponatremia
Essential hypertension
Hypomagnesemia
Intermittent hypotension
Diabetes
Hypothyroidism
Stage IV sacral decubitus ulcer
Consults: Pulmonology, ID
Hospital course:
79 year old female with a past medical history of devastating CVA s/p tPA/craniotomy at [facility], functional quadriplegia with chronic aphasia/nonverbal, paroxysmal A-fib, hypertension, kqk-zqmryty-mypaztwdl diabetes, hypothyroidism, and stage IV sacral
decubitus ulcer, was admitted for acute hypoxic respiratory failure and sepsis from aspiration pneumonia. Patient was seen in conjunction with pulmonology as well as ID. She was treated with IV antibiotics. Eventually her antibiotics were
transitioned to cefepime and Flagyl to cover for aspiration pneumonia.
Patient has a PEG tube, and is dependent on tube feeds. Patient's son is adamant about feeding her. She did have a video swallow evaluation, which is negative for aspiration. However, she remains high risk for aspiration secondary to cognitive
function. Speech pathology did clear her to consume pur�ed foods for comfort.
Patient's hospital course was complicated by rapid atrial fibrillation secondary to her sepsis. She was seen in conjunction with cardiology. She was continued on her digoxin and Eliquis. She was treated with oral Cardizem as needed for her fast
heart rate. As her sepsis resolved, her heart rate also improved.
Patient did initially require 4 L of oxygen. She was successfully weaned to room air.
Patient was initially hypotensive. She was treated with IV fluids. Her losartan was held. She then became fluid overloaded and developed acute pulmonary edema. She was treated with IV Lasix, this resolved. Her blood pressure then trended up,
and her losartan was resumed.
Patient has type 2 diabetes. She received insulin while in the hospital. Her son does not want to administer insulin at home. She will be discharged on glimepiride 4 mg daily. She can continue her metformin upon discharge.
Patient also had hypomagnesemia. She did receive IV magnesium. Her magnesium was 1.5 on the day of discharge. She will be discharged on magnesium oxide 500 mg twice a day.
Patient has a stage IV sacral decubitus ulcer wound, and she received wound care while in the hospital. She needs to follow-up with the wound care clinic.
Patient's multiple medical conditions have been optimized. She will be discharged on cefdinir and Flagyl for 2 more days. She needs to follow-up with her primary care doctor in 1 week.
Disposition: Home with home care
Discharge planning: Required 60 minutes
Discharge Plan
-
Patient Disposition: Home with Home Care
Discharge Diagnosis/Procedures: Sepsis, aspiration pneumonia, dysphagia, atrial fibrillation with rapid ventricular response, low magnesium, stage IV sacral decubitus ulcer, diabetes, hypernatremia
Condition: Fair
Diet: Tube feeding
Additional Diets: Resume previous tube feeds, can have pur�es for comfort
Activity: As tolerated
Blood Work: BMP & CMP in 1 week with PCP
Activity Restrictions/Additional Instructions:
Your sodium was high in the hospital, you no longer need the urea�sodium packets.
Suha Truong is the [facility] [employer] that fixed the PEG tube.
Follow-up with your primary care doctor in 1 week.
Wound Care Instructions
Sacral ulcer-clean with 1/4 strength Dakin's solution, apply Bactroban ointment to periwound red skin daily, apply/pack with silver alginate, cover with sacral shaped silicone border foam, change twice a day and as needed for soilage.
Air mattress. Turning schedule.
Elevate heels off bed with pillows or soft heel relief boots as tolerated.
Follow up with wound child day care provider.
Referrals:
Myriam Paul MD [Family Provider] - in one week
Suha Truong CRNP [Specified Professional Person[employer]] - in four to six weeks
Prescriptions:
New
magnesium oxide 250 mg magnesium tablet
500 mg feeding tube BID Qty: 120 0RF
glimepiride 4 mg Tablet
4 mg feeding tube DAILY Qty: 30 0RF
cefdinir 250 mg/5 mL suspension for reconstitution
300 mg feeding tube BID 2 Days Qty: 24 0RF
metronidazole 500 mg tablet
500 mg feeding tube TID 2 Days Qty: 6 0RF
Continued
amantadine HCl 50 mg/5 mL Solution
150 mg feeding tube BID Qty: 1800 0RF
digoxin 125 mcg (0.125 mg) Tablet
125 mcg feeding tube DAILY Qty: 30 0RF
Eliquis 5 mg Tablet
5 mg feeding tube Q12 Qty: 60 0RF
levothyroxine 100 mcg Tablet
100 mcg feeding tube DAILY@0600 Qty: 30 0RF
metformin 500 mg Tablet
500 mg feeding tube DAILY
therapeutic multivitamin Tablet
1 tab feeding tube DAILY
losartan 25 mg Tablet
25 mg feeding tube DAILY
lansoprazole 15 mg Capsule,Delayed Release(Dr/Ec)
15 mg feeding tube DAILY
mupirocin 2 % Ointment
1 applic TOPICAL DAILY
acetaminophen 325 mg tablet
650 mg feeding tube BID@08,16
sotalol 80 mg tablet
80 mg feeding tube BID
ondansetron HCl 4 mg Tablet
4 mg feeding tube Q6HPRN PRN (Reason: nausea)
acetaminophen-codeine 300-30 mg Tablet
1 tab feeding tube HS
Held
doxycycline hyclate 100 mg Capsule
100 mg feeding tube BID
Hold Instructions: Resume on 08/21/24.
Discontinued
Ure-Na 15 gram Powder In Packet
1 packet PO Q48H
Rx Instructions:
feeding tube
Discharge Orders:
Discharge Patient (As Directed); Ordered 08/18/24
Ordered By: Robin Lau
Discharge Date and Time
Discharge Date/Time: 08/18/24 13:38
Print Language: Argentine
[2024-08-18 11:21] VITALS: BP 166/77
[2024-08-18 11:45] LABS: Glucose - Point of Care 266 mg/dl (70-99)
[2024-08-18] MEDS: LANOXIN 125 MCG TUBE (11:54)
[2024-08-18] MEDS: NOVOLOG FLEXPEN-MODERATE RESISTANCE 5 UNITS SC (11:55)
--- NOTE | 2024-08-18 13:15 | PTCARENOTE ---
Sekou DC'd to home via ambulance. Crystal dc'd as ordered prir to DC. DC instructions/info packet sent with pt; info on all new Rx/SE's sent with pt for caregiver. Condition stable at time of DC.
== END 2024-08-18 13:38 | disposition home health service (06) | DRG 871 ==
LOC: 4 EAST ACU 12:27
PROVIDERS: Internal Medicine Cardiovascular Disease; Nurse Practitioner Family; Physician Assistant; ADMITTING PHYSICIAN Internal Medicine; ATTENDING PHYSICIAN Family Medicine; CONSULT PHYSICIAN Internal Medicine; CONSULT PHYSICIAN Internal Medicine Cardiovascular Disease; CONSULT PHYSICIAN Internal Medicine Gastroenterology; CONSULT PHYSICIAN Internal Medicine Infectious Disease; EMERGENCY PHYSICIAN Emergency Medicine; FAMILY PHYSICIAN Internal Medicine
DX: A41.9 Sepsis, unspecified organism (principal); J69.0 Pneumonitis due to inhalation of food and vomit; L89.154 Pressure ulcer of sacral region, stage 4; R53.2 Functional quadriplegia; J96.01 Acute respiratory failure with hypoxia; I69.254 Hemiplegia and hemiparesis following other nontraumatic intracranial hemorrhage affecting left non-dominant side; E87.0 Hyperosmolality and hypernatremia; E22.2 Syndrome of inappropriate secretion of antidiuretic hormone; R47.01 Aphasia; T85.528A Displacement of other gastrointestinal prosthetic devices, implants and grafts, initial encounter; I48.0 Paroxysmal atrial fibrillation; I10 Essential (primary) hypertension; E83.42 Hypomagnesemia; E11.65 Type 2 diabetes mellitus with hyperglycemia; E03.9 Hypothyroidism, unspecified; E87.70 Fluid overload, unspecified; I95.9 Hypotension, unspecified; Y73.2 Prosthetic and other implants, materials and accessory gastroenterology and urology devices associated with adverse incidents
CPT/HCPCS: 36600; 49465; 71045; 74230; 80048; 80053; 80162; 82077; 82805; 82962; 83605; 83735; 83880; 84100; 84443; 85025; 85027; 87040; 87045; 87046; 87070; 87077; 87324; 87328; 87329; 87427; 87449; 87502; 87798; 87811; 92526; 92610; 92611; 93005; 93306; 94640; 94667; 94668; 94669; 96361; 96365; 96375; 99285

== ENCOUNTER 2024-08-26 19:13 | Emergency (ER) | payer MEDICARE, OTHER, SELFPAY ==
[2024-08-26 19:22] VITALS: BP 118/51
[2024-08-27 01:05] VITALS: BP 125/63
[2024-08-27 01:17] VITALS: BP 105/58
--- NOTE | 2024-08-27 01:42 | ED.GENMED ---
History of Present Illness
General
Chief Complaint: Catheter/Tube Problem
Time Seen by Provider: 08/27/24 01:12
History of Present Illness
History of Present Illness:
79-year-old female with history of CVA and quadriplegia presents the emergency department due to a clogged PEG tube. PEG tube has been poorly functioning for quite some time according to the son but stopped working altogether this afternoon. She
is tube feed dependent but does receive some modified diet oral feedings.
Past History
Past History
ED Past Medical History: Arrthythmia (atrial fib), CVA (Left sided weakness, Aphasia), HTN, Hypercholesterolemia, NIDDM, Hypothyroidism, Psychiatric (Anxiety, Depression) and Other (Headaches, fainting episodes, UTI, DVT. G-Tube, right upper
extremity embolism requiring urgent embolectomy 02/21.)
ED Past Surgical History: Gynecological (pelvic repair) and Other (craniotomy )
Social History
Tobacco: Non-smoker
Alcohol: None
Personal:
[facility]: [facility]
Review of Systems
Review of Systems
Allergies reviewed?: Yes
All Other Systems: ROS reviewed and negative except as documented in HPI and ROS
Phy Exam
Physical Exam
Physical Exam:
GEN: Well appearing, NAD, WDWN
HEENT: Oral mucosa moist, no scleral icterus
Cardiac: Regular rate
Lung: No respiratory distress, no tachypnea
Abdomen: Left upper quadrant PEG tube in place, site is clean and dry
MSK: No gross deformity or injuries
Skin: Good color, no pallor or jaundice, no rashes
Neuro: Alert, minimally verbal, baseline per son
Psych: Calm, cooperative
Course
Orders/Labs/Results
Orders:
Orders
08/27/24 01:39
Tube Check [CR Cont Inj Eval Tube(by Rad)] Urgent
Comment:
Reason For Exam: G tube replacement
Vital Signs
Initial and Last Documented VS:
Initial Vital Signs
Temp Pulse Resp BP
97.2 F 86 18 118/51
08/26/24 19:22 08/26/24 19:22 08/26/24 19:22 08/26/24 19:22
Last Documented Vital Signs
Temp Pulse Resp BP Pulse Ox
97.2 F 86 18 105/58 91
08/26/24 19:22 08/26/24 19:22 08/26/24 19:22 08/27/24 01:17 08/27/24 01:46
MDM/Problems Addressed
MDM/Problems Addressed:
PEG tube replaced at the bedside without difficulty, to check x-rays confirmed adequate placement
*Critical Care Note
Total Time (30-74mins, 75-104mins- exclusive of procedures): Not Applicable
ED Attending Note
-
Portions of this chart may have been created with voice recognition software.� Occasional wrong word or��sound alike� substitutions may have occurred due to the inherent limitations of voice recognition software.
Discharge Plan
Departure
Patient Disposition: Home (Routine Discharge)
Date of Disposition: 08/27/24
Time of Disposition: 02:38
Patient with high blood pressure during this ER visit?: No
Discharge Problem:
Gastrostomy malfunction
Instructions: How to Care for Your Gastrostomy Tube
Prescriptions:
No Action
amantadine HCl 50 mg/5 mL Solution
150 mg feeding tube BID Qty: 1800 0RF
digoxin 125 mcg (0.125 mg) Tablet
125 mcg feeding tube DAILY Qty: 30 0RF
Eliquis 5 mg Tablet
5 mg feeding tube Q12 Qty: 60 0RF
levothyroxine 100 mcg Tablet
100 mcg feeding tube DAILY@0600 Qty: 30 0RF
metformin 500 mg Tablet
500 mg feeding tube DAILY
doxycycline hyclate 100 mg Capsule
100 mg feeding tube BID
therapeutic multivitamin Tablet
1 tab feeding tube DAILY
losartan 25 mg Tablet
25 mg feeding tube DAILY
lansoprazole 15 mg Capsule,Delayed Release(Dr/Ec)
15 mg feeding tube DAILY
mupirocin 2 % Ointment
1 applic TOPICAL DAILY
acetaminophen 325 mg tablet
650 mg feeding tube BID@08,16
sotalol 80 mg tablet
80 mg feeding tube BID
ondansetron HCl 4 mg Tablet
4 mg feeding tube Q6HPRN PRN (Reason: nausea)
acetaminophen-codeine 300-30 mg Tablet
1 tab feeding tube HS
magnesium oxide 250 mg magnesium tablet
500 mg feeding tube BID Qty: 120 0RF
glimepiride 4 mg Tablet
4 mg feeding tube DAILY Qty: 30 0RF
cefdinir 250 mg/5 mL suspension for reconstitution
300 mg feeding tube BID 2 Days Qty: 24 0RF
metronidazole 500 mg tablet
500 mg feeding tube TID 2 Days Qty: 6 0RF
Referrals:
Myriam Paul MD [Family Provider] -
Interventions
Interventions:
*Risk Screen - Suicide Last Done: 08/26/24 19:26
*General Assessment Last Done: 08/26/24 19:26
*Neglect/Abuse Screening Last Done: 08/26/24 19:26
ED- Fall Risk Assessment Last Done: 08/26/24 20:00
*ED COVID-19 Vaccine History Last Done: 08/26/24 20:00
MW-Rzwdfa-Tmjounehrb Assessment Last Done: 08/26/24 22:49
ED-Female Genitourinary Assessment Last Done: 08/26/24 22:56
Discharge Date and Time
Print Language: Sudanese
[2024-08-27 02:00] VITALS: BP 132/70
[2024-08-27 03:10] VITALS: BP 115/72
[2024-08-27 06:00] VITALS: BP 131/70
== END 2024-08-27 07:54 | disposition home or self-care (01) ==
LOC: EMR 19:13
PROVIDERS: EMERGENCY PHYSICIAN Student in an Organized Health Care Education/Training Program
DX: K94.23 Gastrostomy malfunction (principal); I10 Essential (primary) hypertension; E78.00 Pure hypercholesterolemia, unspecified; E11.9 Type 2 diabetes mellitus without complications; E03.9 Hypothyroidism, unspecified; I69.954 Hemiplegia and hemiparesis following unspecified cerebrovascular disease affecting left non-dominant side; I69.920 Aphasia following unspecified cerebrovascular disease; G82.50 Quadriplegia, unspecified
CPT/HCPCS: 43762; 99284; 49465

== ENCOUNTER → 2025-06-08 13:09 | Outpatient (REF) | payer MEDICARE, OTHER, SELFPAY | LOC: RAD 13:09 | PROVIDERS: ATTENDING PHYSICIAN Nurse Practitioner Adult Health | DX: Z43.1 Encounter for attention to gastrostomy (principal) | CPT/HCPCS: 49465 ==

== ENCOUNTER 2025-08-03 11:47 | Emergency (ER) | payer MEDICARE, OTHER, SELFPAY ==
[2025-08-03] VITALS (7 sets, daily range): BP systolic 135–169; BP diastolic 62–131; BMI 29.4
[2025-08-03 12:20] LABS: Hematocrit 37.1 % (37.0-47.0); Hemoglobin 11.6 g/dL (12.0-16.0); Mean Corp Hgb Conc. 31.3 g/dL (33.0-37.0); Mean Corpuscular Volume 95.6 fL (81.0-99.0); Nucleated Red Blood Cells % 0 %; Platelet Count 480 10^3/uL (130-400); Red Cell Dist. Width 14.4 % (11.5-14.5)
[2025-08-03 12:40] LABS: Blood Urea Nitrogen 28 mg/dl (7-17); Calcium 9.3 mg/dl (8.4-10.2); Carbon Dioxide 30 mmol/L (22-30); Chloride 101 mmol/L (98-107); Estimated Creatinine Clearance 74 ml/min; Glucose 176 mg/dl (70-99); Magnesium 1.5 mg/dl (1.6-2.3); Potassium 5.3 mmol/L (3.5-5.1); Sodium 137 mmol/L (135-145); eGFR > 60.00
--- NOTE | 2025-08-03 13:14 | ED.GENMED ---
History of Present Illness
General
Chief Complaint: Abnormal Lab Value
Source: patient
Exam Limitations: none
Time Seen by Provider: 08/03/25 12:39
Nursing documentation reviewed up to this point in time: agreed with
History of Present Illness
History of Present Illness:
80-year-old female with a past medical history of CVA, baseline bedbound, nonverbal, PEG dependent; she has history of A-fib on sotalol, Eliquis, insulin-dependent diabetic, hypertension, hyperlipidemia; she presents to the emergency department
today accompanied by her son for evaluation of abnormal lab work. Patient's son is primary caregiver and provides history at bedside. It sounds like she has had a chronic sacral decubitus wound for over a year. She has been receiving regular
wound care through [facility]. It sounds like they recently started a new wound care treatment a few weeks ago after which family noted that she would have intermittent episodes of flushing. There was concern that maybe this was from an
allergic reaction, family has been treating with Benadryl and this seems to have resolved. She had some lab work done earlier this week because of this recent reaction and apparently family received a call today that potassium was severely low
(1.3) and that white blood cell count was severely elevated (28) and patient was referred to the ER. Son says that generally however patient looks well, they have been taking good care of the wound and they have not noticed any fevers. The only
symptom that she has had recently is loose stools although this is a chronic issue and family is considering adjusting her feeds to help with this.
Past History
Past History
ED Past Medical History: Arrthythmia (atrial fib), CVA (Left sided weakness, Aphasia), HTN, Hypercholesterolemia, NIDDM, Hypothyroidism, Psychiatric (Anxiety, Depression) and Other (Headaches, fainting episodes, UTI, DVT. G-Tube, right upper
extremity embolism requiring urgent embolectomy 02/21.)
ED Past Surgical History: Gynecological (pelvic repair) and Other (craniotomy )
Social History
Tobacco: Non-smoker
Alcohol: None
Personal:
Living: assisted (for rehab)
Review of Systems
Review of Systems
Unable to obtain full review of systems at this time due to: non-verbal
All Other Systems: Not applicable
Phy Exam
Physical Exam
Physical Exam:
General: Awake, alert, no acute distress
Head: Normocephalic, atraumatic
Eyes: Conjunctiva normal, sclera anicteric
Throat: Airway intact, handling secretions
Neck: Trachea midline
Lungs: Clear to auscultation bilaterally, no wheezing, rales, rhonchi
Heart: Regular rate and rhythm, no murmurs, gallops, or rubs
Abd: Soft, non distended, no apparent tenderness, PEG tube in place site appears clean
Neuro: Nonverbal
Skin: Patient has an unstageable sacral wound but no purulence, visible wound margins appear clean, no significant erythema noted
Extremities: Warm and well-perfused
Scores
Heart Failure Risk
Heart Failure Risk Score: Not Applicable
Heart Score for Chest Pain Patients
STEMI patient?: Not applicable
Withdrawal Assessment of Alcohol
Withdrawal Assessment Completed?: Not applicable
Sepsis
Sepsis Screening
Sepsis Assessment: Sepsis Ruled Out
Sepsis Screen
Sepsis Screen: Sepsis Ruled Out
Date: 08/03/25
Time: 15:43
Course
Orders/Labs/Results
Orders:
Orders
08/03/25 12:09
Basic Metabolic Panel Urgent
CBC/With Diff [Complete Blood Count/With Diff] Urgent
Magnesium Urgent
08/03/25 13:33
Blood Culture Q30M
JHOAN Source: Blood/Venous
Specimen Description:
08/03/25 13:53
Urinalysis Reflex To Culture Urgent
Date Specimen was Collected: 08/03/25
Time Specimen was Collected: 13:51
Urine Microscopic Reflex Cult Urgent
Blood Culture Q30M
JHOAN Source: Blood/Venous
Specimen Description:
Urine Culture Urgent
JHOAN Source: U
Specimen Description:
Date Specimen was Collected: 08/03/25
Time Specimen was Collected: 13:51
08/03/25 15:12
CefTRIAXone [Rocephin] 1,000 mg IV NOW STA
Abnormal Lab Results
08/03/25 08/03/25
12:09 13:53
WBC 18.1 H 10^3/uL
(4.8-10.8)
RBC 3.88 L 10^6/uL
(4.20-5.40)
Hgb 11.6 L g/dL
(12.0-16.0)
MCHC 31.3 L g/dL
(33.0-37.0)
Plt Count 480 H 10^3/uL
(130-400)
Abs Immat Gran (auto) 0.5 H 10^3/uL
(0-0.05)
Absolute Neuts (auto) 14.1 H 10^3/uL
(1.4-6.5)
Immature Gran % 2.9 H %
(0-0.5)
Neutrophils % 78.2 H %
(42.2-75.2)
Lymphocytes % 13.6 L %
(20.5-51.1)
Potassium 5.3 H mmol/L
(3.5-5.1)
BUN 28 H mg/dl
(7-17)
Glucose 176 H mg/dl
(70-99)
Magnesium 1.5 L mg/dl
(1.6-2.3)
Ur Occult Blood Reflex 4+ A
(Negative)
Leukocyte Esterase Rfl 3+ A
(Negative)
Urine WBC (Reflex) 80-90 A /HPF
(0-5)
Urine Albumin (Reflex) 2+ A
(Neg - Trace)
08/03/25 12:09
08/03/25 12:09
Vital Signs
Pulse: 88
Resp Rate: 20
Initial and Last Documented VS:
Initial Vital Signs
Pulse Resp BP
104 24 135/105
08/03/25 11:53 08/03/25 11:53 08/03/25 11:53
Last Documented Vital Signs
Temp Pulse Resp BP Pulse Ox
37.0 C 88 20 140/113 95
08/03/25 14:00 08/03/25 15:14 08/03/25 15:14 08/03/25 13:55 08/03/25 14:00
MDM/Problems Addressed
Differential Diagnosis Includes:
Abnormal labs: Could be secondary to lab error versus true leukocytosis which could be caused by many things including medication, stress reaction, infection
MDM/Problems Addressed:
80-year-old nonverbal female who is bedbound, chronic PEG, chronic sacral wound presents with family for abnormal labs. She had an outpatient labs drawn earlier this week and apparently had severely low potassium at 1.3 and severely elevated white
blood cell count of 28. She was referred to the ER. Family says that she has been doing generally well that she has a chronic sacral wound and is receiving regular wound care. Her only physical symptom has been some recent flushing which seems to
have resolved and some loose stools which is chronic. Vital signs here were significant for hypertension and mild tachycardia in triage as well as some mild tachypnea; during my assessment heart rate in the 80s, respiratory rate 20. She is
afebrile. She does have a chronic sacral wound but it appears well cared for and does not appear acutely infected. She had lab work here including a CBC which showed a leukocytosis to 18.1�markedly elevated but improved compared to a value of 28
reportedly. She is not hypokalemic in fact potassium high normal 5.3. Given reported chronic loose stools I did send urinalysis to evaluate for signs of urine infection and she does have pyuria without bacteriuria. Blood cultures were sent off as
certainly sacral wound could be a portal for bacterial and and treated but at this point nothing to suggest sepsis/bacteremia without fever, tachycardia, hypotension. Had a long discussion with the son. He says that he feels patient is at her
baseline and he does not feel she needs hospitalization and I tend to agree. While she does have a leukocytosis she otherwise appears to be at her normal baseline without any clear acute change. I did explain to the son that there was some pyuria
on her urinalysis and certainly diarrhea could predispose to UTI and we agreed that we should start her on antibiotics for possible UTI which could contribute to her marked leukocytosis. Her lungs sound clear and she is breathing
comfortably�nothing to suggest pneumonia. Abdomen apparently nontender�no indication for abdominal imaging at this point. We talked about following up on blood cultures but son prefers to take her home at this point. It sounds like she has an
appointment with her primary doctor tomorrow actually and I recommended to the son that they have repeat blood work and that patient be brought back if she develops fever or any other worrisome symptoms. Using shared decision making we will
discharge home at this point.
Chronic conditions affecting care:
Nonverbal status post CVA
Acute Exacerbation and/or Progression of Chronic Illness:
Hypertensive
*Pulse Oximetry
SaO2: 97
Oxygen Mode of Delivery: Room air
Patient hypoxic: no (97%)
*Critical Care Note
Total Time (30-74mins, 75-104mins- exclusive of procedures): Not Applicable
Data Reviewed
Review of Other/Old Records Reveals: Labs and Records
Source: records and family
Further Testing Considered But Not Given:
Considered CT abdomen, considered chest x-ray
Patient Management
Escalation/DeEscalation of care consider admission/obs:
Considered/offered admission�after discussion with son and using shared decision making opted for discharge with close outpatient follow-up plan
ED Attending Note
-
Portions of this chart may have been created with voice recognition software.� Occasional wrong word or��sound alike� substitutions may have occurred due to the inherent limitations of voice recognition software.
Discharge Plan
Departure
Patient Disposition: Home (Routine Discharge)
Date of Disposition: 08/03/25
Time of Disposition: 15:12
Patient with high blood pressure during this ER visit?: Yes
Discharge Problem:
Leukocytosis, UTI (urinary tract infection), Chronic wound
Instructions: Urinary tract infection (DC)
Prescriptions:
New
cephalexin 250 mg/5 mL suspension for reconstitution
500 mg PO QID 7 Days Qty: 280 0RF
No Action
amantadine HCl 50 mg/5 mL Solution
150 mg feeding tube BID Qty: 1800 0RF
digoxin 125 mcg (0.125 mg) Tablet
125 mcg feeding tube DAILY Qty: 30 0RF
Eliquis 5 mg Tablet
5 mg feeding tube Q12 Qty: 60 0RF
levothyroxine 100 mcg Tablet
100 mcg feeding tube DAILY@0600 Qty: 30 0RF
metformin 500 mg Tablet
1,000 mg feeding tube DAILY
therapeutic multivitamin Tablet
1 tab feeding tube DAILY
losartan 25 mg Tablet
50 mg feeding tube DAILY
lansoprazole 15 mg Capsule,Delayed Release(Dr/Ec)
15 mg feeding tube DAILY
acetaminophen 325 mg tablet
650 mg feeding tube BID@08,16
sotalol 80 mg tablet
80 mg feeding tube BID
ondansetron HCl 4 mg Tablet
4 mg feeding tube Q6HPRN PRN (Reason: nausea)
magnesium oxide 250 mg magnesium tablet
500 mg feeding tube BID Qty: 120 0RF
glimepiride 4 mg Tablet
4 mg feeding tube DAILY Qty: 30 0RF
acetaminophen-codeine 300-30 mg Tablet
1 tab PO HS
omeprazole 40 mg Capsule,Delayed Release(Dr/Ec)
40 mg feeding tube DAILY
diphenhydramine HCl [Benadryl] 25 mg Capsule
25 mg PO HS
Referrals:
UNKNOWN - PT NOT,INTERVIEWE [Unknown Provider]
Activity Restrictions/Additional Instructions:
Patient should have repeat blood work next week. If she is developing fever or any worrisome symptoms please return to the ER to have her reassessed.
Thank you for visiting the Emergency Department at [facility].
1. Please schedule a follow up appointment as directed. Call first thing tomorrow morning to make an appointment.
2. If indicated, please take your medications as instructed and indicated on discharge paperwork.
3. If any of your symptoms do not improve, or persist, or become more severe within 6-12 hours, please return to the emergency department for further care.
4. Please return to the emergency department if you develop a headache, neck pain/stiffness, fever greater than 100.4F, chest pain, shortness of breath, persistent nausea, vomiting, slurred speech, difficulty walking, numbness/tingling, weakness,
signs of infection or any other symptoms that are worrisome to you.
Please call [phone] if you have any questions.
Interventions
Interventions:
*Risk Screen - Suicide Last Done: 08/03/25 12:03
*General Assessment Last Done: 08/03/25 12:00
*ED COVID-19 Vaccine History Last Done: 08/03/25 12:00
*ED Influenza Vaccine History Last Done: 08/03/25 12:00
[facility] Risk Assessment Tool Last Done: 08/03/25 11:47
Discharge Date and Time
Print Language: Guyanese
[2025-08-03 14:12] LABS: Urine Character Slightly Cloudy (Clear)
[2025-08-03 14:21] LABS: Urine Red Blood Cell 0-2 /HPF (0-2); Urine Squamous Cell 0-2 /LPF (Few); Urine White Cell 80-90 /HPF (0-5)
[2025-08-03] MEDS: ROCEPHIN 1000 MG IV (15:28)
== END 2025-08-03 17:59 | disposition home or self-care (01) ==
LOC: EMR 11:47
PROVIDERS: EMERGENCY PHYSICIAN Emergency Medicine
DX: D72.829 Elevated white blood cell count, unspecified (principal); N39.0 Urinary tract infection, site not specified; E10.622 Type 1 diabetes mellitus with other skin ulcer; L89.159 Pressure ulcer of sacral region, unspecified stage; I48.91 Unspecified atrial fibrillation; I10 Essential (primary) hypertension; E78.00 Pure hypercholesterolemia, unspecified; I69.354 Hemiplegia and hemiparesis following cerebral infarction affecting left non-dominant side; I69.320 Aphasia following cerebral infarction; E03.9 Hypothyroidism, unspecified; F41.9 Anxiety disorder, unspecified; F32.A Depression, unspecified; Z79.01 Long term (current) use of anticoagulants; Z79.4 Long term (current) use of insulin; Z79.84 Long term (current) use of oral hypoglycemic drugs; Z74.01 Bed confinement status; Z93.1 Gastrostomy status; Z87.440 Personal history of urinary (tract) infections; Z86.718 Personal history of other venous thrombosis and embolism
CPT/HCPCS: 99284; 96374; 80048; 81003; 81015; 83735; 85025; 87040; 87086

== ENCOUNTER 2025-08-17 02:45 | Inpatient (IN) | payer MEDICARE, OTHER, SELFPAY ==
[2025-08-16] VITALS (9 sets, daily range): BP systolic 75–115; BP diastolic 39–84
[2025-08-16 20:24] LABS: Hematocrit 35.1 % (37.0-47.0); Hemoglobin 11.2 g/dL (12.0-16.0); Mean Corp Hgb Conc. 31.9 g/dL (33.0-37.0); Mean Corpuscular Volume 93.4 fL (81.0-99.0); Platelet Count 356 10^3/uL (130-400); Red Cell Dist. Width 15.9 % (11.5-14.5)
[2025-08-16 20:42] LABS: COVID-19 Antigen Negative (Negative)
[2025-08-16 20:43] LABS: Nucleated Red Blood Cells % 0 %
[2025-08-16 20:45] LABS: ALT (SGPT) 18 U/L (0-35); AST (SGOT) 23 U/L (14-36); Albumin 3.0 g/dl (3.5-5.0); Alkaline Phosphatase 80 U/L (38-126); Blood Urea Nitrogen 26 mg/dl (7-17); Calcium 8.7 mg/dl (8.4-10.2); Carbon Dioxide 26 mmol/L (22-30); Chloride 100 mmol/L (98-107); Glucose 237 mg/dl (70-99); Potassium 4.9 mmol/L (3.5-5.1); Sodium 134 mmol/L (135-145); Total Protein 6.0 g/dl (6.3-8.2); eGFR > 60.00
--- NOTE | 2025-08-16 23:10 | ED.GENMED ---
History of Present Illness
General
Chief Complaint: Fever
Time Seen by Provider: 08/16/25 22:56
History of Present Illness
History of Present Illness:
Patient is a 80-year-old woman with history of CVA, bedbound, nonverbal, PEG dependent A-fib on Eliquis, diabetes presenting to the emergency department with a fever. Patient son is at bedside provides all the history. He states that she was
brought into the emergency department 2 weeks ago for abnormal blood work. She ultimately was discharged on antibiotics for possible UTI. At that time there was some redness to her legs which attributed to drug rash. They noticed that when she
was on the antibiotics the redness on her leg resolved. They finished the antibiotics 2 days ago. Yesterday the redness reappeared to the leg. Today she had a fever. She does have a sacral wound that has been well cared for. Otherwise patient
without coughing vomiting or diarrhea.
Past History
Past History
ED Past Medical History: Arrthythmia (atrial fib), CVA (Left sided weakness, Aphasia), HTN, Hypercholesterolemia, NIDDM, Hypothyroidism, Psychiatric (Anxiety, Depression) and Other (Headaches, fainting episodes, UTI, DVT. G-Tube, right upper
extremity embolism requiring urgent embolectomy 02/21.)
ED Past Surgical History: Gynecological (pelvic repair) and Other (craniotomy )
Social History
Tobacco: Non-smoker
Alcohol: None
Personal:
Living: [facility] (for rehab)
Phy Exam
Physical Exam
Physical Exam:
GENERAL: in no acute distress
HEENT: normocephalic, extraocular movements intact, moist oral mucosa
NECK: normal inspection
RESPIRATORY: no respiratory distress, clear to auscultation bilaterally
CARDIOVASCULAR: regular rate and rhythm
ABDOMEN/: soft, non-distended, non-tender to palpation, no rebound or guarding, sacral wound appears without any purulence and redness or drainage
EXTREMITIES: Right lower extremity with redness and warmth circumferentially, no crepitus, no bullae, normal distal pulses
NEUROLOGIC: awake and alert, moves all extremities
SKIN: warm
Sepsis
Sepsis Screening
Sepsis Assessment: Septic Shock
Sepsis Screening: Lactate >/=4mmol/L
Sepsis Screen
Sepsis Screen: Septic Shock
Date: 08/16/25
Time: 21:58
Course
Orders/Labs/Results
Orders:
Orders
08/16/25 20:04
Blood Culture Urgent
JHOAN Source: Blood/Venous
Specimen Description:
08/16/25 20:15
COVID-19 Antigen Urgent
Source: Nasal Swab
Complete Blood Count/With Diff Urgent
Comprehensive Metabolic Panel Urgent
Lactic Acid Urgent
Influenza A+B Rapid Molecular Urgent
JHOAN Source: Nasal Swab
Specimen Description:
08/16/25 22:30
EKG [Electrocardiogram (*1)] Urgent
Reason for Study: Tachycardia
EKG- Treatment ONCE
08/16/25 22:57
Urinalysis Reflex To Culture Urgent
08/16/25 22:58
0.9% Sodium Chloride 1000 ml [Nss] 1,000 ml IV BOLUS
08/16/25 23:09
Acetaminophen [Tylenol] 1,000 mg TUBE NOW STA
CefTRIAXone [Rocephin] 2,000 mg IV NOW STA
08/16/25 23:24
Sterile Water [Sterile Water For Injection] 10 ml .ROUTE .[facility]
Abnormal Lab Results
08/16/25
20:15
WBC 24.2 H 10^3/uL
(4.8-10.8)
RBC 3.76 L 10^6/uL
(4.20-5.40)
Hgb 11.2 L g/dL
(12.0-16.0)
Hct 35.1 L %
(37.0-47.0)
MCHC 31.9 L g/dL
(33.0-37.0)
RDW 15.9 H %
(11.5-14.5)
Abs Immat Gran (auto) 0.3 H 10^3/uL
(0-0.05)
Absolute Neuts (auto) 21.7 H 10^3/uL
(1.4-6.5)
Immature Gran % 1.0 H %
(0-0.5)
Neutrophils % 89.6 H %
(42.2-75.2)
Lymphocytes % 6.6 L %
(20.5-51.1)
Sodium 134 L mmol/L
(135-145)
BUN 26 H mg/dl
(7-17)
Glucose 237 H mg/dl
(70-99)
Lactic Acid 4.9 H* mmol/L
(0.7-2.0)
Total Protein 6.0 L g/dl
(6.3-8.2)
Albumin 3.0 L g/dl
(3.5-5.0)
08/16/25 20:15
08/16/25 20:15
Vital Signs
Initial and Last Documented VS:
Initial Vital Signs
Temp Pulse Resp BP Pulse Ox
100.2 F 131 20 115/74 95
08/16/25 19:54 08/16/25 19:54 08/16/25 19:54 08/16/25 19:54 08/16/25 19:54
Last Documented Vital Signs
Temp Pulse Resp BP Pulse Ox
100.2 F 109 32 96/84 97
08/16/25 19:54 08/16/25 23:45 08/16/25 23:45 08/16/25 23:30 08/16/25 23:12
MDM/Problems Addressed
Differential Diagnosis Includes:
Patient is a 80-year-old woman presenting to the emergency department with a fever. On arrival patient febrile tachycardic hypotensive. After fluids it did slightly improve. Source does appear to be the right lower extremity cellulitis. Does not
appear necrotizing soft tissue infection. Blood work notable for leukocytosis as well as lactic acidosis. Will continue to fluid resuscitate. Will give ceftriaxone. Also check urinalysis. Cultures pending.
*Pulse Oximetry
SaO2: 97
Oxygen Mode of Delivery: Room air
Patient hypoxic: no
*Critical Care Note
Total Time (30-74mins, 75-104mins- exclusive of procedures): Not Applicable
Update Note
Update Note:
On reevaluation blood pressure appears to have improved. Discussed with hospitalist who excepted patient to their service.
ED Attending Note
-
Portions of this chart may have been created with voice recognition software.� Occasional wrong word or��sound alike� substitutions may have occurred due to the inherent limitations of voice recognition software.
Discharge Plan
Departure
Patient Disposition: Admit
Date of Disposition: 08/16/25
Time of Disposition: 23:56
Presentation/result/management discussed w/ accepting MD/DO: Hospitalist
Discharge Problem:
Cellulitis
Prescriptions:
No Action
amantadine HCl 50 mg/5 mL Solution
150 mg feeding tube BID Qty: 1800 0RF
digoxin 125 mcg (0.125 mg) Tablet
125 mcg feeding tube DAILY Qty: 30 0RF
Eliquis 5 mg Tablet
5 mg feeding tube Q12 Qty: 60 0RF
levothyroxine 100 mcg Tablet
100 mcg feeding tube DAILY@0600 Qty: 30 0RF
metformin 500 mg Tablet
1,000 mg feeding tube DAILY
therapeutic multivitamin Tablet
1 tab feeding tube DAILY
losartan 25 mg Tablet
50 mg feeding tube DAILY
lansoprazole 15 mg Capsule,Delayed Release(Dr/Ec)
15 mg feeding tube DAILY
acetaminophen 325 mg tablet
650 mg feeding tube BID@
sotalol 80 mg tablet
80 mg feeding tube BID
ondansetron HCl 4 mg Tablet
4 mg feeding tube Q6HPRN PRN (Reason: nausea)
magnesium oxide 250 mg magnesium tablet
500 mg feeding tube BID Qty: 120 0RF
glimepiride 4 mg Tablet
4 mg feeding tube DAILY Qty: 30 0RF
acetaminophen-codeine 300-30 mg Tablet
1 tab PO HS
omeprazole 40 mg Capsule,Delayed Release(Dr/Ec)
40 mg feeding tube DAILY
diphenhydramine HCl [Benadryl] 25 mg Capsule
25 mg PO HS
cephalexin 250 mg/5 mL suspension for reconstitution
500 mg PO QID 7 Days Qty: 280 0RF
Patient Comments:
discontiued
Referrals:
NONE,* [Family Provider, Internal Medicine]
Interventions
Interventions:
*General Assessment Last Done: 08/16/25 19:54
*Neglect/Abuse Screening Last Done: 08/16/25 19:54
*ED COVID-19 Vaccine History Last Done: 08/16/25 20:48
*ED Influenza Vaccine History Last Done: 08/16/25 20:48
[facility] Fall Risk Assessment Tool Last Done: 08/16/25 20:50
*Risk Screen - Suicide (C-SSRS) Last Done: 08/16/25 20:49
ED- Neurological Assessment Last Done: 08/16/25 21:12
ED-Skin Assessment Last Done: 08/16/25 21:12
Discharge Date and Time
Print Language: Kittitian
[2025-08-16] MEDS: ROCEPHIN 2000 MG IV (23:27)
[2025-08-16] MEDS: TYLENOL 1000 MG TUBE (23:27)
[2025-08-16] MEDS: NSS 1000 IV (23:28)
[2025-08-17] VITALS (21 sets, daily range): BP systolic 89–133; BP diastolic 48–102; BMI 31.3
[2025-08-17] MEDS: NSS 1000 IV ×4 (02:30→21:10)
--- NOTE | 2025-08-17 02:35 | HPS.HSE ---
Family Physician
-
Family Physician: * NONE
Chief Complaint
-
Fever
History of Present Illness
Patient is a 80y F with PMH significant for prior CVA, chronically bed-bound, non-verbal and PEG-dependent who presents to ED for evaluation of fever at home. History obtained from ED staff / via son. Son noted that patient was seen in the ED
two weeks ago for abnormal labs (majority were normal on repeat). Patient was started on cephalexin at that time for suspected UTI. She completed these abx 2 days ago (should have been one week ago?).
Patient had redness of both legs a few weeks ago which was previously attributed to 'drug rash'. While on the abx the redness significantly improved.
Son noted that the redness returned in the RLE specifically after the abx were discontinued. Today patient had a fever and was brought to the ED for further evaluation.
No noted cough or hypoxemia. No vomiting or diarrhea (chronically loose stools on tube feeds). Chronic urinary incontinence with no new changes.
Medical History
Past Medical History
Past Medical History: Reports Other
Additional Past Medical History:
ASCVD / CVA (tPA / craniotomy)
Functional Quadriplegia s/p CVA
Permanent Atrial Fibrillation
Hypertension
DM-II
Hypothyroidism
Anxiety / Depression
Chronic Pain Syndrome
Chronic Sacral Decubitus
History of DVT
Past Surgical History: Reports Other
Additional Past Surgical History:
tPA / Craniotomy
G-Tube Placement
Pelvic Surgery
LUE Thrombectomy
Social History
Unable to obtain full social history at this time due to: Patient Non-verbal
Family History
Family History: Unable to Obtain
Allergies / Home Medications
Allergies reflects when Allergies were last updated in [facility].
Home Medications with original date entered in [facility]
Allergy/Medication List:
Allergies
Allergy/AdvReac Type Severity Reaction Status Date / Time
No Known Allergies Allergy Verified 08/10/24 08:30
Home Medications
amantadine HCl 50 mg/5 mL oral solution 150 mg (15 mL) feeding tube BID #1,800 mL 06/25/23
apixaban 5 mg tablet (Eliquis) 5 mg feeding tube Q12 #60 tabs 06/25/23
digoxin 125 mcg (0.125 mg) tablet 125 mcg feeding tube DAILY #30 tabs 06/25/23
levothyroxine 100 mcg tablet 100 mcg feeding tube DAILY@0600 #30 tabs 06/25/23
acetaminophen 325 mg tablet 650 mg feeding tube BID@08,16 Pain 06/03/24
lansoprazole 15 mg capsule,delayed release 15 mg feeding tube DAILY Gastrointestinal Issue 06/03/24
losartan 25 mg tablet 50 mg feeding tube DAILY Blood Pressure 06/03/24
metformin 500 mg tablet 1,000 mg feeding tube DAILY Diabetes 06/03/24
sotalol 80 mg tablet 80 mg feeding tube BID Arrhythmia 06/03/24
therapeutic multivitamin 1 tab feeding tube DAILY Supplement 06/03/24
ondansetron HCl 4 mg tablet 4 mg feeding tube Q6HPRN PRN nausea 08/10/24
glimepiride 4 mg tablet 4 mg feeding tube DAILY #30 tabs 08/18/24
magnesium oxide 500 mg (2 x 250 mg magnesium) feeding tube BID #120 tabs 08/18/24
acetaminophen 300 mg-codeine 30 mg tablet 1 tab PO HS 08/03/25
cephalexin 250 mg/5 mL oral suspension 500 mg (10 mL) PO QID 7 days #280 mL 08/03/25
diphenhydramine HCl 25 mg capsule (Benadryl) 25 mg PO HS 08/03/25
omeprazole 40 mg capsule,delayed release 40 mg feeding tube DAILY 08/03/25
Review of Systems
-
Unable to obtain full review of systems at this time due to: Patient Non-verbal
Physical Exam
Vital Signs
Vital Signs
Temp Pulse Resp BP Pulse Ox
100.2 F 119 33 99/80 97
08/16/25 19:54 08/17/25 00:15 08/17/25 00:15 08/17/25 00:00 08/17/25 00:15
Physical Exam
General: Other (80y F non-verbal. Resting comfortably and not in apparent distress.)
HEENT: Moist mucous membranes, PERRLA and Other (Thick neck.)
Respiratory: Other (Few coarse breath sounds R > L. No wheezing.)
Cardiac: S1/S2 and Irregular Rhythm; No Murmur
GI: Other (Obese, no evident tenderness. Normoactive bowel sounds. L sided G-tube in place without bleeding / discharge.)
Musculoskeletal: No Clubbing, No Cyanosis, No Edema and Other (Some apparent pain with ROM of R knee - but similar reaction to any movement / ROM of any joints.)
Skin: Decubitus Ulcers (Large sacral decubitus ulcer with tunneling. No active bleeding or surrounding erythema.) and Other (Erythema and increased warmth of the RLE around the knee. No skin breakdown / lesions.)
Neuro: Other (Awake / arousable. Non-verbal at baseline. L sided weakness / functional quadriplegia.)
Laboratory Results
-
08/16/25 20:15
08/16/25 20:15
Laboratory Results
Lactic Acid 4.9 mmol/L (0.7-2.0) H* 08/16/25 20:15
Total Bilirubin 0.6 mg/dl (0.2-1.3) 08/16/25 20:15
AST 23 U/L (14-36) 08/16/25 20:15
ALT 18 U/L (0-35) 08/16/25 20:15
Alkaline Phosphatase 80 U/L (38-126) 08/16/25 20:15
Impression/Plan
-
A/P: Patient is a 80y F with PMH significant for chronic disability following prior CVA, HTN, DM-II and chronic sacral wound who presents to ED for evaluation of fever.
RLE Cellulitis
Sepsis secondary to the above
Lactic Acidosis
- Admit for further evaluation and treatment.
- Patient with fever, leukocytosis, tachycardia / tachypnea and low BP on arrival.
- Some redness / warmth to the RLE which may be the source.
- Given baseline non-verbal state / limited history - would rule out other potential sources as well.
- Check UA / C&S if indicated.
- Check CXR.
- Broad spectrum abx for now and follow-up additional imaging / culture data / etc.
- Supportive care with IVFs, antipyretics, etc.
- Follow serial lactate, BP, etc for improvement.
Chronic Sacral Decubitus Ulcer
- Does not appear acutely infected - but is quite extensive.
- Wound Care evaluation for local care recommendations.
Benign Hypertension
- Currently relatively hypotensive. Hold BP medications acutely.
Permanent Atrial Fibrillation
- Continue sotalol with holding parameters.
- Continue Eliquis.
DM-II
- Hold glimepiride acutely.
- Follow glucose and cover with SSI as needed.
- Update A1C.
- Dietary recs re: tube feedings (family provided feeds).
Hypothyroidism
- Continue T4 supplementation.
ASCVD / Prior CVA
Chronically Bed-Bound
Tube-Feed Dependent
- Continue supportive measures, repositioning, etc.
- Dietary eval for TF as noted above.
DVT Prophylaxis: On Eliquis
Code Status: Full
[2025-08-17] MEDS: VANCOCIN 540 MG IV (05:30)
[2025-08-17 06:30] LABS: Hematocrit 34.7 % (37.0-47.0); Hemoglobin 10.9 g/dL (12.0-16.0); Mean Corp Hgb Conc. 31.4 g/dL (33.0-37.0); Mean Corpuscular Volume 95.9 fL (81.0-99.0); Platelet Count 322 10^3/uL (130-400); Red Cell Dist. Width 16.0 % (11.5-14.5)
[2025-08-17 06:56] LABS: Blood Urea Nitrogen 25 mg/dl (7-17); Calcium 8.4 mg/dl (8.4-10.2); Carbon Dioxide 26 mmol/L (22-30); Chloride 107 mmol/L (98-107); Estimated Creatinine Clearance 83 ml/min; Glucose 186 mg/dl (70-99); Potassium 4.7 mmol/L (3.5-5.1); Sodium 138 mmol/L (135-145); eGFR > 60.00
[2025-08-17 08:28] LABS: Glycohemoglobin (HgbA1c) 7.8 % (4.0-5.9)
--- NOTE | 2025-08-17 08:37 | W.PN.HOSP.TC ---
Today's Communication/Plan
-
Antibiotics
Assessment / Plan
Assessment / Plan
Physical exam:
General: Acute on chronically
HEENT: Normocephalic, Atraumatic and Moist Mucous Membranes
Respiratory: Clear to Auscultation; Negative Wheezes, Rales or Rhonchi
Cardiac: Regular Rhythm and S1/S2
GI: Soft, Nontender and Nondistended
Musculoskeletal: Right lower extremity erythema. Sacral decubitus, stage IV. No Clubbing.
Neuro: Awake, Alert and Disoriented, no neurological deficits but generalized weakness
Psych: Calm
A/P:
RLE Cellulitis
Sepsis with endorgan damage of lactate of 4.9 upon admission due to cellulitis.
Lactic Acidosis
- Admit for further evaluation and treatment initiated to IMU but can transfer to telemetry since blood pressure has remained relatively stable.
- Patient with fever, leukocytosis, tachycardia / tachypnea and low BP on arrival.
- Some redness / warmth to the RLE which may be the source.
- Given baseline non-verbal state / limited history - would rule out other potential sources as well.
- Check UA / C&S if indicated.
- Check CXR.
- Broad spectrum abx for now and follow-up additional imaging / culture data / etc.
- Supportive care, antipyretics, etc.
- Follow serial lactate, BP, etc for improvement.
- ID consult and will switch antibiotics to IV cefazolin
- Lactate trended down from 4.9 down to 2.3
- Continue IV fluid
Chronic Sacral Decubitus Ulcer
- Does not appear acutely infected - but is quite extensive.
- Wound Care evaluation for local care recommendations.
Benign Hypertension
- Currently relatively hypotensive. Hold BP medications acutely.
Permanent Atrial Fibrillation
- Continue sotalol with holding parameters.
- Continue Eliquis.
DM-II
- Hold glimepiride acutely.
- Follow glucose and cover with SSI as needed.
- Update A1C.
- Dietary recs re: tube feedings (family provided feeds).
Hypothyroidism
- Continue T4 supplementation.
ASCVD / Prior CVA
Chronically Bed-Bound
Tube-Feed Dependent
- Continue supportive measures, repositioning, etc.
- Dietary eval for TF as noted above.
Dysphagia
Resume home tube feedings
DVT Prophylaxis: On Eliquis
Code Status: Full
Anticipated Discharge: > 48 hours
Subjective/Interval History
-
Date of Service: August 17, 2025
Unable to obtain much information from patient
Objective Data
-
Labs:
Laboratory Results
08/16/25 08/17/25
20:15 05:58
WBC 17.5 H
Hgb 10.9 L
Hct 34.7 L
Plt Count 322
Sodium 134 L 138
Potassium 4.9 4.7
Chloride 100 107
Carbon Dioxide 26 26
BUN 26 H 25 H
Creatinine 0.6 0.6
Glucose 237 H 186 H
Calcium 8.7 8.4
Total Bilirubin 0.6
AST 23
ALT 18
Alkaline Phosphatase 80
Vital Signs:
Vital Signs
Temp Pulse Resp BP Pulse Ox
97.6 F 93 20 95/54 98
08/17/25 07:20 08/17/25 06:30 08/17/25 06:30 08/17/25 06:00 08/17/25 06:30
I&O
08/16/25 08/17/25 08/18/25
06:59 06:59 06:59
Intake Total 4070 / 4070
Output Total 200 / 200
Balance 3870 / 3870
--- NOTE | 2025-08-17 08:57 | PTCARENOTE ---
Addendum entered by Ruiz Mackenzie RN 08/17/25 13:53:
All accucheck data has trasferred.
Original Note:
Morning accucheck 180. Accucheck monitor did not transfer data successfully.
[2025-08-17] MEDS: LANOXIN 125 MCG TUBE (09:04)
[2025-08-17] MEDS: ELIQUIS 5 MG TUBE ×2 (09:04→20:21)
[2025-08-17] MEDS: SYNTHROID TUBE (09:04)
[2025-08-17] MEDS: BETAPACE TUBE (09:04)
[2025-08-17] MEDS: TYLENOL 650 MG TUBE ×2 (09:14→16:54)
[2025-08-17] MEDS: ZOSYN 50 IV (09:14)
[2025-08-17] MEDS: SYMMETREL SYRUP 150 MG TUBE ×2 (09:18→21:13)
[2025-08-17] MEDS: PREVACID 30 MG TUBE (09:18)
--- NOTE | 2025-08-17 09:19 | PHA.VAN.IN ---
Assessment
- Assessment
Renal Function: Appears similar to baseline
Concomitant Antimicrobials: PIPERACILLIN/TAZOBACTAM
Historical Micro: History of MRSA infection (MRSA IN THE SACRAL WOUND AND THE BACK IN 2022)
- Previous Dosing Experience
Previous Regimen: 750 MG Q 12 HR
Date of Regimen: 06/16/2023
Patient's SCR is: Elevated compared to previous dosing experience
Patient's weight is: Elevated compared to previous dosing experience
REGIMEN PROVIDED THE PATIENT'S SPECIFIC PK
Extrapolated Cmax (mcg/mL): 20.4
Peak level was drawn: Appropriately (drawn ~2.5)
Extrapolated Cmin (mcg/mL): 11.6
Trough Drawn: Appropriately
Levels were drawn: At steady state (levels drawn after 3rd maintenance dose)
Calculated AUC (mcg*h/mL): 374
Calculated ke: 0.0516
Calculated half life (H): 13.4
Calculated Vd (L): 77.6
Calculated Vanc CL (ml/min): 66.8
- Dosing Plan-DURING PRIOR ADMISSION
Adjust Regimen to: Vanc 1250mg Q24H
Given half-life > 12H, will adjust interval to Q24H
Patient likely has not fully accumulated on current regimen and patient-specific PK will not accurately reflect predicted PK of new regimen
AUC Dosing Plan
- Empiric Dosing
Initial / Loading Dose: 2000 MG 08/17/25 @0530
Maintenance Regimen: 1250 MG IV Q 24HR BASED ON PRIOR DOSING EXPERIENCE, STARTING 08/18/25
- Monitoring
No levels ordered at this time: CONSIDER ORDERING WITHIN THE NEXT FEW DAYS
Pharmacokinetics Vancomycin I
- -
Patient Age: 80
Patient Sex: Female
Vancomycin Day #: 1
Indication: Skin And Soft Tissue
Requesting Provider: MALINDA MALDONADO DO
Pertinent Antimicrobial Allergies:
NK ANTIMICROBIAL DRUG ALLERGIES
Height / Weight:
Height 5 ft 5 in
Actual Weight 85.304 kg
Pertinent Past Medical History: CHRONICALLY BED-BOUND, PEG-DEPENDENT, DM, FUNCTIONAL QUADRIPLEGIA
- Vital Signs / Lab Results
Temp Pulse Resp BP Pulse Ox
97.6 F 93 20 95/54 98
08/17/25 07:20 08/17/25 06:30 08/17/25 06:30 08/17/25 06:00 08/17/25 06:30
Lab Results - Hematology
08/16/25 08/17/25
20:15 05:58
WBC 24.2 H 17.5 H
Lab Results - Chemistry
08/16/25 08/17/25
20:15 05:58
BUN 26 H 25 H
Creatinine 0.6 0.6
Estimated Creat Clear 83
Albumin 3.0 L
08/16/25 08/17/25
20:15 05:58
Lactic Acid 4.9 H* 2.3 H
Microbiology Results
08/16/25 20:15 Influenza Types A & B (JENA) - Final
Nasal Swab Negative for Influenza A & B, NAAT
Negative results must be combined with clinical observations
and patient history.
Nucleic Acid Amplification test (NAAT)performed on the
[employer] platform.
[2025-08-17] MEDS: NOVOLOG FLEXPEN-LOW RESISTANCE SC ×2 (10:15→19:37)
--- NOTE | 2025-08-17 10:44 | WOUNDNOTE ---
BILATERAL LOWER EXTREMITIES
--- NOTE | 2025-08-17 10:46 | WOUNDNOTE ---
SACRAL COCCYX/GLUTEAL CLEFT
--- NOTE | 2025-08-17 10:50 | WOUNDNOTE ---
[facility] RN note: Patient admitted with cellulitis.
See H&P for complete history.
PMH: functional quadriplegic, CVA 01/2023, L hemiparesis, non verbal, craniotomy, a fib (Eliquis), HTN, NIDDM, sacral pressure injury stage 4, feeding tube.
Wound Location and type/assessment: Patient last seen by wound care 08/11/24, admitted with: same stage 4 sacral pressure injury. Base with light [place] mixed with pink, slight odor, undermines 3-9 O'clock. Periwound blanchable red. Perirectal area
with MASD from incontinence, scattered raw michael. Blanchable mild red heels.
Appetite: NPO. Has feeding tube. Skin intact surrounding tube.
Pressure redistribution devices in place:An [employer], asked nurse to call bed [facility] for a [facility] [place] air bed if patient not going to IMU today. Patient immobile, 2 assist to turn. Repositioned to L semi side lying position, pillow under calves.
Plan: Sacral dressing changed with saline moist gauze and silicone foam. Will order Dakin's to start tomorrow WTD. Foams applied to heels to protect.
Will confirm orders with Dr. Bell and plan discussed with RN.
Care plan to be updated and will follow as needed.
Case Management: will need air mattress at SNF if doesn't already have.
--- NOTE | 2025-08-17 12:06 | CON.ID ---
Consultation
-
Date/Time Consultation Requested: 08/17/25 9:45
Date/Time Consultation Performed: 08/17/25 12:06
Requesting Provider: Dr Bell
Performing Provider: Dr Rios
Reason for Consultation: Sepsis evaluation
Chief Complaint / Past History
Chief Complaint
fever
History of Present Illness
Ms Hung is a 80 year old female with history of prior CVA, bed bound/nonverbal/peg dependant, sacral decubitus ulcer who presented here from home for fever. History obtained by chart review. Note that two weeks ago she was diagnosed with UTI, UA
with 80-90 wbc/hpf and treated empricially with cephalexin which she reportedly completed two days prior to arrival. The urine culture and blood cultures were ultimately finalized negative. Son also reports redness of the bilateral lower
extremities which was attributed to drug rash and treated with benadryl, however while on the cephalexin the erythema improved, but reoccurred yesterday. No vomiting or diarrhea. Has chronic urinary incontinence. She had a fever prompting them to
see evaluation
Since arrival here tmax has been 100.2 axillary, BP intermitently mildly hypotensive, wbc initially 24 now 17, hgb 11.2, plt 356, L shift is noted, na 134, cr 0.6, lactic acid initially 4.9 then 2.3 a repeat is pending, a1c 7.8, t bili 0.6, ast 23,
alt 18, alk phos 80, CXR no pneumonia, Right knee Xray: DJD, she is currently on vancomycin and zosyn, ID is consulted for assistance with management.
Past History
Additional Past Medical History:
ASCVD / CVA (tPA / craniotomy)
Functional Quadriplegia s/p CVA
Permanent Atrial Fibrillation
Hypertension
DM-II
Hypothyroidism
Anxiety / Depression
Chronic Pain Syndrome
Chronic Sacral Decubitus
History of DVT
Additional Past Surgical History:
tPA / Craniotomy
G-Tube Placement
Pelvic Surgery
LUE Thrombectomy
Allergy History:
No Known Allergies Allergy (Verified 08/10/24 08:30)
Medications Reviewed: Yes
Social History
Tobacco: Non-Smoker
Alcohol: None
Personal:
Family History
Family History: Not Pertinent
Review of Systems
Review of Systems
unable to obtain due to the condition of the patient
Vital Signs
Temp Pulse Resp BP Pulse Ox
97.5 F 100 30 92/62 98
08/17/25 11:11 08/17/25 11:15 08/17/25 11:15 08/17/25 11:00 08/17/25 11:15
Physical Exam
Physical Exam
Constitutional: No Acute Distress
Cardiovascular: Regular Rate and S1/S2; Negative Murmur or Rub
Pulmonary: Clear and Symmetric; Negative Wheezes, Rales or Rhonchi
Gastrointestinal: Soft, Non Tender, Non Distended and Normal Bowel Sounds
Skin: Warm, Dry and Rash (right lower extremity with blanching erythema, edema); Negative Jaundice
Wound: Other (large sacral decubitus ulcer without odor, no surrounding erythema, no purulent drainage)
Lab / Diagnostic Study Results
08/17/25 05:58
08/17/25 05:58
Abs Immat Gran (auto) 0.3 10^3/uL (0-0.05) H 08/16/25 20:15
Absolute Neuts (auto) 21.7 10^3/uL (1.4-6.5) H 08/16/25 20:15
Absolute Lymphs (auto) 1.6 10^3/uL (1.2-3.4) 08/16/25 20:15
Absolute Monos (auto) 0.6 10^3/uL (0.1-0.6) 08/16/25 20:15
Absolute Basos (auto) 0.1 10^3/uL (0-0.2) 08/16/25 20:15
Immature Gran % 1.0 % (0-0.5) H 08/16/25 20:15
Neutrophils % 89.6 % (42.2-75.2) H 08/16/25 20:15
Lymphocytes % 6.6 % (20.5-51.1) L 08/16/25 20:15
Monocytes % 2.4 % (1.7-9.3) 08/16/25 20:15
Eosinophils % 0.0 % (0-6) 08/16/25 20:15
Basophils % 0.4 % (0-2) 08/16/25 20:15
Lactic Acid 2.3 mmol/L (0.7-2.0) H 08/17/25 05:58
Microbiology Results
Micro:
08/16/25 20:15 Influenza Types A & B (JENA) - Final
Nasal Swab Negative for Influenza A & B, NAAT
Negative results must be combined with clinical observations
and patient history.
Nucleic Acid Amplification test (NAAT)performed on the
[employer] platform.
Assessment / Plan
RLE Nonpurulent Cellulitis
Fever
Stage IV sacral decubitus Ulcer
prior CVA, bed bound/nonverbal/peg dependant
- blood cultures not needed for nonpurulent cellulitis
- trend lactic acid
- compression/elevation
- cefazolin 2 gm IV q8 hours; stop vancomycin and zosyn
- continue wound care to the sacral decubitus ulcer
[2025-08-17 12:26] LABS: Glucose - Point of Care 180 mg/dl (70-99)
[2025-08-17 12:26] LABS: Glucose - Point of Care 189 mg/dl (70-99)
[2025-08-17] MEDS: NOVOLOG FLEXPEN-LOW RESISTANCE 1 UNITS SC (13:35)
[2025-08-17] MEDS: ANCEF 10 IV ×2 (14:55→21:11)
--- NOTE | 2025-08-17 15:25 | PTOTSP ---
Speech Language Pathology
Pt seen for clinical bedside swallow evaluation. Son present at bedside who reported pt is fed tsp amounts of thin liquids and puree for comfort with nutrition via PEG. P.O. trials of puree and thin liquids via tsp provided. Swallow initiation
noted with some labial leakage with thin liquids. Immediate weak coughing with 1/2 tsps of puree with increase in HR. Further P.O. trials deferred.
Recommend:
(1) Strict NPO
(2) Oral care 4x/day with suctioning as needed
(3) Meds via PEG
(4) Not appropriate for Aspiration Risk Hydration Protocol (ARHP)
(5) AURICULOTHERAPIST to continue to follow
[2025-08-17 18:31] LABS: Glucose - Point of Care 133 mg/dl (70-99)
[2025-08-17] MEDS: BETAPACE 80 MG TUBE (20:20)
[2025-08-17] MEDS: TYLENOL #3 1 TABLET PO (21:13)
[2025-08-18] VITALS (21 sets, daily range): BP systolic 91–175; BP diastolic 64–109; BMI 31.9
[2025-08-18 00:10] LABS: Glucose - Point of Care 135 mg/dl (70-99)
[2025-08-18] MEDS: NSS 1000 IV (05:08)
[2025-08-18] MEDS: SYNTHROID 100 MCG TUBE (05:28)
[2025-08-18] MEDS: ANCEF 10 IV ×3 (05:29→22:53)
[2025-08-18 05:54] LABS: Glucose - Point of Care 142 mg/dl (70-99)
[2025-08-18] MEDS: NOVOLOG FLEXPEN-LOW RESISTANCE SC (05:55)
[2025-08-18 07:08] LABS: Hematocrit 32.3 % (37.0-47.0); Hemoglobin 10.4 g/dL (12.0-16.0); Mean Corp Hgb Conc. 32.2 g/dL (33.0-37.0); Mean Corpuscular Volume 93.6 fL (81.0-99.0); Nucleated Red Blood Cells % 0 %; Platelet Count 286 10^3/uL (130-400); Red Cell Dist. Width 16.0 % (11.5-14.5)
[2025-08-18 07:16] LABS: Blood Urea Nitrogen 14 mg/dl (7-17); Calcium 7.8 mg/dl (8.4-10.2); Carbon Dioxide 19 mmol/L (22-30); Chloride 111 mmol/L (98-107); Estimated Creatinine Clearance 84 ml/min; Glucose 147 mg/dl (70-99); Potassium 4.0 mmol/L (3.5-5.1); Sodium 138 mmol/L (135-145); eGFR > 60.00
[2025-08-18] MEDS: BETAPACE 80 MG TUBE ×2 (08:21→21:44)
[2025-08-18] MEDS: ELIQUIS 5 MG TUBE ×2 (08:21→21:43)
--- NOTE | 2025-08-18 09:08 | PTOTSP ---
PT consult received. Per CM notes, patient is dependent at baseline with all mobility at OR and has fully assist with all ADLs and mobility. She is WC bound. Will sign off.
--- NOTE | 2025-08-18 10:33 | W.PN.HOSP.TC ---
Today's Communication/Plan
-
IV antibiotics.
Assessment / Plan
Assessment / Plan
Physical exam:
General: Acute on chronically
HEENT: Normocephalic, Atraumatic and Moist Mucous Membranes
Respiratory: Clear to Auscultation; Negative Wheezes, Rales or Rhonchi
Cardiac: Regular Rhythm and S1/S2
GI: Soft, Nontender and Nondistended
Musculoskeletal: Right lower extremity erythema and tenderness improving. Sacral decubitus, stage IV. No Clubbing.
Neuro: Awake, Alert and Disoriented, no new neurological deficits but generalized weakness/quadriplegia
Psych: Calm
A/P:
Sepsis with endorgan damage (lactate of 4.9) due to right lower extremity cellulitis:
Continue IV cefazolin likely switch to oral/through PEG over the next 24 hours
Stop IV fluid
ID consult appreciated
Continue monitor hemodynamic
Lactic acid 4.9 down to 1.6 today
WBC 28.2 down to 10.8 today
Discussed with son over the phone today
Stage IV sacral cubitus:
Continue wound care
Dysphagia status post PEG:
Resumed home tube feedings
Functional quadriplegia with history of CVA in the past:
Family has significant help at home
Permanent A-fib:
On rate control, digoxin
On antiarrhythmics, sotalol
On anticoagulation, Eliquis
Hypothyroidism:
Continue thyroid replacement
Diabetes mellitus type 2:
Continue insulin sliding scale
Hold oral hypoglycemic
Chronic pain syndrome with opioid dependence:
Continue current pain medication
DVT prophylaxis:
Eliquis
CODE STATUS:
Full code
Total time spent on today's encounter was 37 minutes which included time spent in counseling the patient/family regarding diagnosis and treatment plan as listed above, goals of care, and symptom management. Case was discussed with nursing staff,
specialists, and care coordinators/case management. All labs and imaging personally reviewed by me. Remainder the time spent in detailed review of previous records, lab data, imaging, and other medical provider documentation.
Anticipated Discharge: Within 24 hours
Subjective/Interval History
-
Date of Service: August 18, 2025
Patient feels better today. More alert. Blood pressure improved.
Objective Data
-
Labs:
Laboratory Results
08/18/25
04:24
WBC 10.8
Hgb 10.4 L
Hct 32.3 L
Plt Count 286
Sodium 138
Potassium 4.0
Chloride 111 H
Carbon Dioxide 19 L
BUN 14
Creatinine 0.5 L
Glucose 147 H
Calcium 7.8 L
Vital Signs:
Vital Signs
Temp Pulse Resp BP Pulse Ox
97.8 F 108 32 133/89 98
08/18/25 02:58 08/18/25 08:30 08/18/25 08:30 08/18/25 08:00 08/18/25 08:30
I&O
08/17/25 08/18/25 08/19/25
06:59 06:59 06:59
Intake Total 4070 / 4070 3250 / 3250
Output Total 200 / 200 300 / 300
Balance 3870 / 3870 2950 / 2950
[2025-08-18] MEDS: DAKIN'S SOLUTION 0.125% 1/4 STRENGTH 473 ML TOPICAL (10:36)
[2025-08-18] MEDS: TYLENOL 650 MG TUBE ×2 (10:37→17:04)
[2025-08-18] MEDS: PREVACID 30 MG TUBE (10:37)
[2025-08-18] MEDS: SYMMETREL SYRUP 150 MG TUBE ×2 (10:37→21:44)
[2025-08-18 11:54] LABS: Glucose - Point of Care 200 mg/dl (70-99)
--- NOTE | 2025-08-18 12:05 | W.PN.ID1 ---
Date of Service
Date of Service: August 18, 2025
Today's Communication
- cefazolin 2 gm IV q8 hours for today, tomorrow switch to keflex suspension 500 mg (10mL) per tube QID x 7 days total 08/17-08/23
- continue wound care to the sacral decubitus ulcer
- follow up with PCP
Assessment / Plan
RLE Nonpurulent Cellulitis
Fever
Stage IV sacral decubitus Ulcer
prior CVA, bed bound/nonverbal/peg dependant
- blood cultures not needed for nonpurulent cellulitis
- lactic acid - normalized
- compression/elevation RLE
- cefazolin 2 gm IV q8 hours for today, tomorrow switch to keflex suspension 500 mg (10mL) per tube QID x 7 days total 08/17-08/23
- continue wound care to the sacral decubitus ulcer
- follow up with PCP
Chief Complaint
-: Other (cellulitis)
Subjective / Review of Systems
afebrile
bp stable
distal erythema has resolved, still with some erythema on the proximal quad
unable to voice a complaint
Vital Signs / Physical Exam
Vital Signs
Vital Signs
Temp Pulse Resp BP Pulse Ox
97.7 F 106 27 136/94 96
08/18/25 11:19 08/18/25 11:16 08/18/25 11:16 08/18/25 11:16 08/18/25 11:24
Physical Exam
Constitutional: No Acute Distress and Chronically Ill
Cardiovascular: Regular Rate and S1/S2; Negative Murmur or Rub
Pulmonary: Clear and Symmetric; Negative Wheezes or Rales
Gastrointestinal: Soft, Non Tender, Non Distended and Normal Bowel Sounds
Skin: Warm, Dry and Rash (distal erythema has resolved, still with some erythema on the proximal quad; compression in place); Negative Jaundice
Objective Data
Lab Data
Lab Results
08/18/25 04:24
08/18/25 04:24
Estimated Creat Clear 84 ml/min 08/18/25 04:24
Lactic Acid 1.6 mmol/L (0.7-2.0) 08/18/25 04:24
Total Bilirubin 0.6 mg/dl (0.2-1.3) 08/16/25 20:15
AST 23 U/L (14-36) 08/16/25 20:15
ALT 18 U/L (0-35) 08/16/25 20:15
Alkaline Phosphatase 80 U/L (38-126) 08/16/25 20:15
Most recent labs reviewed.
Micro Results:
08/16/25 20:15 Influenza Types A & B (JENA) - Final
Nasal Swab Negative for Influenza A & B, NAAT
Negative results must be combined with clinical observations
and patient history.
Nucleic Acid Amplification test (NAAT)performed on the
[employer] platform.
[2025-08-18] MEDS: NSS IV (12:36)
[2025-08-18] MEDS: LANOXIN 125 MCG TUBE (12:56)
[2025-08-18] MEDS: NOVOLOG FLEXPEN-LOW RESISTANCE 2 UNITS SC ×2 (12:57→17:04)
[2025-08-18 16:36] LABS: Glucose - Point of Care 215 mg/dl (70-99)
--- NOTE | 2025-08-18 18:24 | PTCARENOTE ---
Patient admitted to from ED. BP 175/95. made aware. STAT IV hydralazine ordered. Afib on telemetry. Son at bedside.
[2025-08-18] MEDS: APRESOLINE 10 MG IV (18:34)
[2025-08-18] MEDS: TYLENOL #3 1 TABLET PO (22:53)
[2025-08-19 00:24] VITALS: BP 145/84
[2025-08-19 00:33] LABS: Glucose - Point of Care 203 mg/dl (70-99)
[2025-08-19 03:00] VITALS: BP 160/81
[2025-08-19 05:02] VITALS: BMI 31.0
[2025-08-19] MEDS: KEFLEX 250 MG/5 ML 500 MG TUBE ×3 (05:08→12:48)
[2025-08-19] MEDS: SYNTHROID 100 MCG TUBE (05:08)
[2025-08-19 05:57] LABS: Glucose - Point of Care 176 mg/dl (70-99)
[2025-08-19 06:00] VITALS: BMI 31.0
[2025-08-19] MEDS: NOVOLOG FLEXPEN-LOW RESISTANCE 1 UNITS SC (06:07)
[2025-08-19 08:35] LABS: Glucose - Point of Care 226 mg/dl (70-99)
[2025-08-19 08:36] VITALS: BP 161/93
[2025-08-19] MEDS: SYMMETREL SYRUP 150 MG TUBE (09:36)
[2025-08-19] MEDS: BETAPACE 80 MG TUBE (09:37)
[2025-08-19] MEDS: ELIQUIS 5 MG TUBE (09:37)
[2025-08-19] MEDS: PREVACID 30 MG TUBE (09:38)
[2025-08-19] MEDS: DAKIN'S SOLUTION 0.125% 1/4 STRENGTH 473 ML TOPICAL (09:38)
[2025-08-19] MEDS: ZESTRIL 5 MG TUBE (09:42)
[2025-08-19] MEDS: TYLENOL 650 MG TUBE (09:45)
--- NOTE | 2025-08-19 10:18 | W.PN.ID1 ---
Date of Service
Date of Service: August 19, 2025
Today's Communication
- switch to keflex suspension 500 mg (10mL) per tube QID x 7 days total 08/17-08/23
- continue wound care to the sacral decubitus ulcer
- follow up with PCP
Assessment / Plan
RLE Nonpurulent Cellulitis
Fever
Stage IV sacral decubitus Ulcer
prior CVA, bed bound/nonverbal/peg dependant
- blood cultures not needed for nonpurulent cellulitis
- lactic acid - normalized
- compression/elevation RLE
- switch to keflex suspension 500 mg (10mL) per tube QID x 7 days total 08/17-08/23
- continue wound care to the sacral decubitus ulcer
- follow up with PCP
Chief Complaint
-: Other (cellulitis)
Subjective / Review of Systems
afebrile
bp stable
no significant events overnight
Vital Signs / Physical Exam
Vital Signs
Vital Signs
Temp Pulse Resp BP Pulse Ox
98.3 F 94 16 161/93 97
08/19/25 08:36 08/19/25 09:42 08/19/25 08:36 08/19/25 09:42 08/19/25 08:36
Physical Exam
Constitutional: No Acute Distress
Cardiovascular: Regular Rate and S1/S2; Negative Murmur or Rub
Pulmonary: Clear and Symmetric; Negative Wheezes or Rales
Gastrointestinal: Soft, Non Tender, Non Distended and Normal Bowel Sounds
Skin: Warm and Dry; Negative Rash (erythema fully resolved) or Jaundice
Neurological: Awake
Objective Data
Lab Data
Lab Results
08/18/25 04:24
08/18/25 04:24
Estimated Creat Clear 84 ml/min 12/18/25 04:24
Lactic Acid 1.6 mmol/L (0.7-2.0) 08/18/25 04:24
Total Bilirubin 0.6 mg/dl (0.2-1.3) 08/16/25 20:15
AST 23 U/L (14-36) 08/16/25 20:15
ALT 18 U/L (0-35) 08/16/25 20:15
Alkaline Phosphatase 80 U/L (38-126) 08/16/25 20:15
Most recent labs reviewed.
Micro Results:
08/16/25 20:15 Influenza Types A & B (JENA) - Final
Nasal Swab Negative for Influenza A & B, NAAT
Negative results must be combined with clinical observations
and patient history.
Nucleic Acid Amplification test (NAAT)performed on the
[employer] platform.
Care Review
Plan reviewed with: Physician (Dr Ray ivan)
--- NOTE | 2025-08-19 11:01 | W.PN.HOSP.TC ---
Today's Communication/Plan
-
Discharge planning today
Assessment / Plan
Assessment / Plan
Physical exam:
General: Chronically
HEENT: Normocephalic, Atraumatic and Moist Mucous Membranes
Respiratory: Clear to Auscultation; Negative Wheezes, Rales or Rhonchi
Cardiac: Regular Rhythm and S1/S2
GI: Soft, Nontender and Nondistended
Musculoskeletal: Right lower extremity erythema and tenderness improving. Sacral decubitus, stage IV. No Clubbing.
Neuro: Awake, Alert and Disoriented, no new neurological deficits but generalized weakness/quadriplegia
Psych: Calm
A/P:
Sepsis with endorgan damage (lactate of 4.9) due to right lower extremity cellulitis:
Changed to Keflex through PEG
Stop IV fluid
ID consult appreciated
Continue monitor hemodynamic
Lactic acid 4.9 down to 1.6
WBC 28.2 down to 10.8
Discussed with son over the phone yesterday
Discussed with ID today who cleared her for discharge
Plan to discharge today
Hypertension:
Start low-dose RAMANDEEP inhibitor, lisinopril 5 mg daily
Stage IV sacral cubitus:
Continue wound care
Dysphagia status post PEG:
Resumed home tube feedings
Functional quadriplegia with history of CVA in the past:
Family has significant help at home
Permanent A-fib:
On rate control, digoxin
On antiarrhythmics, sotalol
On anticoagulation, Eliquis
Hypothyroidism:
Continue thyroid replacement
Diabetes mellitus type 2:
Continue insulin sliding scale
Hold oral hypoglycemic and resume upon discharge
Chronic pain syndrome with opioid dependence:
Continue current pain medication
DVT prophylaxis:
Eliquis
CODE STATUS:
Full code
Total time spent on today's encounter was 37 minutes which included time spent in counseling the patient/family regarding diagnosis and treatment plan as listed above, goals of care, and symptom management. Case was discussed with nursing staff,
specialists, and care coordinators/case management. All labs and imaging personally reviewed by me. Remainder the time spent in detailed review of previous records, lab data, imaging, and other medical provider documentation.
Anticipated Discharge: Today
Subjective/Interval History
-
Date of Service: August 19, 2025
No new complaints. Afebrile
Objective Data
-
Vital Signs:
Vital Signs
Temp Pulse Resp BP Pulse Ox
98.3 F 94 16 161/93 97
08/19/25 08:36 08/19/25 09:42 08/19/25 08:36 08/19/25 09:42 08/19/25 08:36
I&O
08/18/25 08/19/25 08/20/25
06:59 06:59 06:59
Intake Total 3250 / 3250
Output Total 300 / 300
Balance 2950 / 2950
[2025-08-19 11:34] VITALS: BP 155/90
--- NOTE | 2025-08-19 12:01 | W.DCSUMMARY ---
Discharge Summary
Discharge Data
Date of Admission: 08/17/25
Date of Discharge: 08/19/25
Total time spent discharging patient (in min): 35
-
Pending Results: No
Hospital Course
Patient is 80 years old female with multiple comorbidities including CVA, dementia, sacral decubitus ulcer, functional quadriplegia, A-fib, diabetes mellitus, chronic pain, DVT, presented to the hospital with sepsis. Patient was given
broad-spectrum IV antibiotics and IV fluids. ID consulted. Source was identified as right lower extremity cellulitis. Patient responded to antibiotics therapy. Her blood pressure was very low when she came in and improved. Her lactic acid also
improved after hydration and antibiotics. Her white blood cell count trended down appropriately back to normal. Patient's antibiotics were switched to through PEG as per ID recommendation for the duration recommended as well. Patient's blood
pressure has been elevated and required initiation of low-dose RAMANDEEP inhibitor. Family is comfortable taking her back and resuming home services. She will be discharged in relatively stable condition today.
Discharge duration: 35 minutes
Discharge Plan
-
Patient Disposition: Home with Home Care
Discharge Diagnosis/Procedures: Sepsis. Right lower extremity cellulitis. Stage IV sacral decubitus ulcer. Hypertension. Dementia.
Diet: Other diet
Additional Diets: Resume tube feeding diet same prior to admission.
Activity: As tolerated
Blood Work: Please PCP to order CBC, BMP within 1 week
Activity Restrictions/Additional Instructions:
Wound Care Instructions
Sacrum: Rinse with saline, skin prep periwound, Dakin's moist gauze packing then cover with dry dressing daily and prn soilage.
Air mattress with turning schedule
Increase protein in feeds.
Follow up at wound care center call for an appointment.
Referrals:
Primary care provider [Other] - in less than 1 week
NONE,* [Family Provider, Internal Medicine]
Prescriptions:
New
cephalexin 250 mg/5 mL Suspension For Reconstitution
500 mg feeding tube QID 5 Days Qty: 200 0RF
lisinopril 5 mg Tablet
5 mg feeding tube DAILY 30 Days Qty: 30 0RF
Continued
amantadine HCl 50 mg/5 mL Solution
150 mg feeding tube BID Qty: 1800 0RF
digoxin 125 mcg (0.125 mg) Tablet
125 mcg feeding tube DAILY Qty: 30 0RF
Eliquis 5 mg Tablet
5 mg feeding tube Q12 Qty: 60 0RF
levothyroxine 100 mcg Tablet
100 mcg feeding tube DAILY@0600 Qty: 30 0RF
metformin 500 mg Tablet
1,000 mg feeding tube DAILY
therapeutic multivitamin Tablet
1 tab feeding tube DAILY
losartan 25 mg Tablet
50 mg feeding tube DAILY
lansoprazole 15 mg Capsule,Delayed Release(Dr/Ec)
15 mg feeding tube DAILY
acetaminophen 325 mg tablet
650 mg feeding tube BID@08,16
sotalol 80 mg tablet
80 mg feeding tube BID
ondansetron HCl 4 mg Tablet
4 mg feeding tube Q6HPRN PRN (Reason: nausea)
magnesium oxide 250 mg magnesium tablet
500 mg feeding tube BID Qty: 120 0RF
glimepiride 4 mg Tablet
4 mg feeding tube DAILY Qty: 30 0RF
acetaminophen-codeine 300-30 mg Tablet
1 tab PO HS
omeprazole 40 mg Capsule,Delayed Release(Dr/Ec)
40 mg feeding tube DAILY
diphenhydramine HCl [Benadryl] 25 mg Capsule
25 mg PO HS
Discontinued
cephalexin 250 mg/5 mL suspension for reconstitution
500 mg PO QID 7 Days Qty: 280 0RF
Patient Comments:
discontiued
Discharge Orders:
Discharge Patient (As Directed); Ordered 08/19/25
Ordered By: Fidencio Bell
Discharge Date and Time
Discharge Date/Time: 08/19/25 16:25
Print Language: [place] Citizen
[2025-08-19] MEDS: LANOXIN 125 MCG TUBE (12:47)
[2025-08-19] MEDS: NOVOLOG FLEXPEN-LOW RESISTANCE 3 UNITS SC (12:53)
[2025-08-19 12:54] LABS: Glucose - Point of Care 256 mg/dl (70-99)
--- NOTE | 2025-08-19 13:25 | CM ---
Initial assessment completed with son. Patient is unresponsive and non-verbal S/P CVA. She lives alone in a 2nd floor condo with 12/7 caregivers and weekly RN for wound care with [facility] services. Patient is immobile. She has a
hospital bed with air mattress, veda lift, w/ch, feeding tube and supplies. Does have HC-POA. No VA benefits. No psychiatric hospitalizations. [facility] in [facility]. Discharge POC: Return home with 24/7 JUNIOR DAT[employer] ADMINISTRATOR and weekly
RN visits.
--- NOTE | 2025-08-19 13:32 | CM ---
Addendum entered by Juliana Hubbard 08/19/25 14:05:
Transport scheduled for 3:45 pm.
Original Note:
Patient has been medically cleared for discharge to home with resumption of 24/7 caregivers and weekly RN visits for wound care through [facility] [place] [facility] services. Ambulance transport has been requested.
[2025-08-19 14:18] VITALS: BP 161/84
== END 2025-08-19 16:25 | disposition home or self-care (01) | DRG 871 ==
LOC: 2 NORTH 02:45
PROVIDERS: ADMITTING PHYSICIAN Hospitalist; ATTENDING PHYSICIAN Hospitalist; CONSULT PHYSICIAN Student in an Organized Health Care Education/Training Program; EMERGENCY PHYSICIAN Student in an Organized Health Care Education/Training Program
DX: A41.9 Sepsis, unspecified organism (principal); L89.154 Pressure ulcer of sacral region, stage 4; R53.2 Functional quadriplegia; I48.21 Permanent atrial fibrillation; L03.115 Cellulitis of right lower limb; E87.20 Acidosis, unspecified; F11.20 Opioid dependence, uncomplicated; F03.94 Unspecified dementia, unspecified severity, with anxiety; F03.93 Unspecified dementia, unspecified severity, with mood disturbance; I69.354 Hemiplegia and hemiparesis following cerebral infarction affecting left non-dominant side; R65.20 Severe sepsis without septic shock; E11.9 Type 2 diabetes mellitus without complications; E03.9 Hypothyroidism, unspecified; E78.00 Pure hypercholesterolemia, unspecified; F32.A Depression, unspecified; R32 Unspecified urinary incontinence; I25.10 Atherosclerotic heart disease of native coronary artery without angina pectoris; R13.10 Dysphagia, unspecified; G89.4 Chronic pain syndrome; I10 Essential (primary) hypertension; I95.9 Hypotension, unspecified; I69.320 Aphasia following cerebral infarction; Z60.2 Problems related to living alone; Z87.440 Personal history of urinary (tract) infections; Z74.01 Bed confinement status; Z79.01 Long term (current) use of anticoagulants; Z86.718 Personal history of other venous thrombosis and embolism; Z79.890 Hormone replacement therapy; Z79.84 Long term (current) use of oral hypoglycemic drugs; Z93.1 Gastrostomy status; Z11.52 Encounter for screening for COVID-19
CPT/HCPCS: 71045; 73560; 80048; 80053; 82962; 83036; 83605; 85025; 85027; 87502; 87811; 92526; 92610; 93005; 96374; 99285

== ENCOUNTER 2025-08-19 18:16 | Emergency (ER) | payer MEDICARE, OTHER, SELFPAY ==
[2025-08-19 18:18] VITALS: BP 195/94
--- NOTE | 2025-08-19 19:35 | ED.GENMED ---
History of Present Illness
General
Chief Complaint: Catheter/Tube Problem
Source: family
Time Seen by Provider: 08/19/25 19:41
History of Present Illness
History of Present Illness:
This patient is a 80-year-old female who was just discharged from the hospital earlier today. Upon arrival home, she was noted to have a feeding tube that was dislodged. No other findings or complaints noted
Past History
Past History
ED Past Medical History: Arrthythmia (atrial fib), CVA (Left sided weakness, Aphasia), HTN, Hypercholesterolemia, NIDDM, Hypothyroidism, Psychiatric (Anxiety, Depression) and Other (Headaches, fainting episodes, UTI, DVT. G-Tube, right upper
extremity embolism requiring urgent embolectomy 02/21.)
ED Past Surgical History: Gynecological (pelvic repair) and Other (craniotomy )
Social History
Tobacco: Non-smoker
Alcohol: None
Drug: None
Personal:
Living: with family (for rehab)
Phy Exam
Physical Exam
Physical Exam:
GENERAL: Alert , in no apparent distress
EYE: pupils equal and reactive
NECK: Supple, no significant adenopathy.
ENT: o/p clr, mmm.
CARDIAC: Regular rate and rhythm .
LUNGS: Clear breath sounds bilaterally, no acute respiratory distress, no wheezes/rales/rhonchi
ABDOMEN: Soft, without focal tenderness, PEG tube site with min erythema (not infectious appearing) suspect irritation, no warmth/drainage, etc
NEUROLOGICAL: awake, quadriplegia, nonverbal
SKIN: Warm and dry, skin intact.
MUSCULOSKELETAL: Well perfused.
PSYCH: Nonverbal
Course
Orders/Labs/Results
Orders:
Orders
08/19/25 19:56
Tube Check [CR Cont Inj Eval Tube(by Rad)] Urgent
Comment:
Reason For Exam: tube replacement
Vital Signs
Initial and Last Documented VS:
Initial Vital Signs
Temp Pulse BP Pulse Ox
98.1 F 78 195/94 98
08/19/25 18:18 08/19/25 18:18 08/19/25 18:18 08/19/25 18:18
Last Documented Vital Signs
Temp Pulse BP Pulse Ox
98.1 F 78 195/94 98
08/19/25 18:18 08/19/25 18:18 08/19/25 18:18 08/19/25 19:36
*Pulse Oximetry
SaO2: 98
Oxygen Mode of Delivery: Room air
Patient hypoxic: no
*Critical Care Note
Total Time (30-74mins, 75-104mins- exclusive of procedures): Not Applicable
Update Note
Update Note:
Patient presents to the Emergency Department with ___feeding tube dislodged
Number and Complexity of Problems Addressed at the Encounter
� Chronic conditions affecting care:
� Acute Exacerbation and/or Progression of Chronic Illness:
� Differential Diagnosis includes: But not limited to closed PEG tube tract, infection, dislodged feeding tube, etc.
Amount and/or Complexity of Data to be Reviewed and Analyzed
� I performed an independent evaluation of and my interpretation is:
EKG:
CT:
Xrays:The PEG tube appears well-positioned within the stomach. Contrast opacifies the gastric rugal folds and passes into the proximal jejunum. No evidence for a contrast leak.
Laboratory Studies:
Other:
� Review of other/old records reveals: Patient's discharge summary from today reviewed by me demonstrating the patient was septic from a lower extremity cellulitis, cleared for discharge, getting antibiotics through her PEG
� Clinical information was obtained by an independent historian: Son who is bedside. He brought patient's prior feeding tube which is a 20 Upper Sorbian.
� Prescriptions/Medications Considered but not given:
� Further testing considered but not performed:
Risk of Complications and/or Morbidity or Mortality of Patient Management
� Social determinants of health affecting care:
� Discussion with other providers (PCP, Hospitalists, Consultants, etc):
� Escalation of care including admission/observation vs risk of discharge considered: Feeding tube was replaced by me with a 20 Upper Sorbian tube that is the same 1 that patient had an earlier today. Will check placement via x-ray,
patient otherwise stable for discharge.
1029PM tube check film c/w proper placement, awaiting rads formal read, pt will then be discharged.
ED Attending Note
-
Portions of this chart may have been created with voice recognition software.� Occasional wrong word or��sound alike� substitutions may have occurred due to the inherent limitations of voice recognition software.
Discharge Plan
Departure
Patient Disposition: Home (Routine Discharge)
Date of Disposition: 08/19/25
Time of Disposition: 22:29
Patient with high blood pressure during this ER visit?: Yes
Condition: Good
Discharge Problem:
S/P percutaneous endoscopic gastrostomy (PEG) tube placement
Instructions: How to Care for Your Gastrostomy Tube, BLOOD PRESSURE
Prescriptions:
No Action
amantadine HCl 50 mg/5 mL Solution
150 mg feeding tube BID Qty: 1800 0RF
digoxin 125 mcg (0.125 mg) Tablet
125 mcg feeding tube DAILY Qty: 30 0RF
Eliquis 5 mg Tablet
5 mg feeding tube Q12 Qty: 60 0RF
levothyroxine 100 mcg Tablet
100 mcg feeding tube DAILY@0600 Qty: 30 0RF
metformin 500 mg Tablet
1,000 mg feeding tube DAILY
therapeutic multivitamin Tablet
1 tab feeding tube DAILY
losartan 25 mg Tablet
50 mg feeding tube DAILY
lansoprazole 15 mg Capsule,Delayed Release(Dr/Ec)
15 mg feeding tube DAILY
acetaminophen 325 mg tablet
650 mg feeding tube BID@08,16
sotalol 80 mg tablet
80 mg feeding tube BID
ondansetron HCl 4 mg Tablet
4 mg feeding tube Q6HPRN PRN (Reason: nausea)
magnesium oxide 250 mg magnesium tablet
500 mg feeding tube BID Qty: 120 0RF
glimepiride 4 mg Tablet
4 mg feeding tube DAILY Qty: 30 0RF
acetaminophen-codeine 300-30 mg Tablet
1 tab PO HS
omeprazole 40 mg Capsule,Delayed Release(Dr/Ec)
40 mg feeding tube DAILY
diphenhydramine HCl [Benadryl] 25 mg Capsule
25 mg PO HS
cephalexin 250 mg/5 mL Suspension For Reconstitution
500 mg feeding tube QID 5 Days Qty: 200 0RF
lisinopril 5 mg Tablet
5 mg feeding tube DAILY 30 Days Qty: 30 0RF
Referrals:
NONE,* [Family Provider, Internal Medicine]
Activity Restrictions/Additional Instructions:
IF YOU DEVELOP DRAINAGE, REDNESS AROUND THE FEEDING TUBE SITE, ABDOMINAL PAIN, ABDOMINAL DISTENTION, FEVER, OR OTHER WORRISOME SIGNS, PLEASE RETURN TO THE ER IMMEDIATELY!
Interventions
Interventions:
*General Assessment Last Done: 08/19/25 18:18
*Neglect/Abuse Screening Last Done: 08/19/25 18:18
*ED COVID-19 Vaccine History Last Done: 08/19/25 19:19
*ED Influenza Vaccine History Last Done: 08/19/25 19:19
[facility] Fall Risk Assessment Tool Last Done: 08/19/25 18:16
*Risk Screen - Suicide (C-SSRS) Last Done: 08/19/25 19:18
VN-Rhfvvs-Ljtiskvgbr Assessment Last Done: 08/19/25 19:06
Discharge Date and Time
Print Language: [place]
== END 2025-08-20 02:54 | disposition home or self-care (01) ==
LOC: EMR 18:16
PROVIDERS: EMERGENCY PHYSICIAN Emergency Medicine
DX: Z43.1 Encounter for attention to gastrostomy (principal); I48.91 Unspecified atrial fibrillation; I10 Essential (primary) hypertension; E78.00 Pure hypercholesterolemia, unspecified; E11.9 Type 2 diabetes mellitus without complications; E03.9 Hypothyroidism, unspecified; R47.01 Aphasia; Z86.718 Personal history of other venous thrombosis and embolism; Z86.73 Personal history of transient ischemic attack (TIA), and cerebral infarction without residual deficits; Z87.440 Personal history of urinary (tract) infections
CPT/HCPCS: 99283; 43762; 49465